=== PATIENT | female | born 1970 | race Hispanic/Latino ===

== ENCOUNTER 2016-08-15 22:36 | Observation (INO) | payer OTHER ==
[~2016-08-15] VITALS: Ht 160 cm; Wt 110.4 kg
[~2016-08-15 22:36] MED LIST: ACTOS30 MG PO; BIRTH CONTROL PILL; CIPRO XR500 MG OR; CIPRO500 MG OR; CIPROFLOXACN500 MG PO; CLIMARA TD; DIABETA5 MG PO; GLYB/METFO5 MG/500 M OR; HYDROCO/APAP1 T11 OR; LANTUS100 MG/ML SC; LEVOTHYROXIN50 MC1 PO; LIPITOR40 MG PO; LISINOPRIL2.5 MG PO; LORTAB 5 OR; LORTAB 5 PO; METFORMIN1000 MG PO; METFORMIN500 MG OR; METFORMIN500 MG PO; NOVOLIN 70/30 SC; NOVOLOG100 IU/1 M SC; ORTHO TRI-CY OR; PROMETHAZINE12.5 MG OR; SEPTRA DS1 TAB PO
--- NOTE | 2016-08-15 22:36 | NUR ---
PT. BROUGHT STRAIGHT BACK TO TREATMENT ROOM AT THIS TIME.
[2016-08-15 23:20] LABS: HEMATOCRIT 36.2 % (37.0-47.0); HEMOGLOBIN 11.4 g/dl (12.0-16.0); IMMATURE GRANULOCYTES 0.2 % (0.0-1.0); MEAN CELL VOLUME 81.2 fL CALC (80.0-100.0); MEAN CORPUSCULAR HGB 25.6 pG CALC (26.0-32.0); MEAN CORPUSCULAR HGB CONC 31.5 g/L CALC (32.0-36.0); NEUT# 6.33 thou/uL (2.00-7.15); RED BLOOD COUNT 4.46 mill/uL (4.20-5.60)
[2016-08-15 23:28] LABS: ALBUMIN 3.7 g/dL (3.2-5.0); ALKALINE PHOSPHATASE 151 u/l (38-126); ANION GAP 16 (6-22 (CALC)); BILIRUBIN, TOTAL 0.4 mg/dL (0.0-1.4); BUN 15 mg/dL (7-17); BUN/CREATININE RATIO 26 (12-20 (CALC)); CARBON DIOXIDE 25 mmol/l (22-30); CHLORIDE 100 mmol/l (95-108); CREATININE 0.6 mg/dL (0.5-1.0); GFR > 60 ML/MIN (>=60 (CALC)); GFR FOR AFR.AMER. > 60 ML/MIN (>=60 (CALC)); GLUCOSE 224 mg/dL (65-105); SGOT/AST 11 u/l (14-36); SGPT/ALT 24 u/l (9-52); SODIUM 138 mmol/l (137-146); TOTAL PROTEIN 7.7 g/dL (6.3-8.2)
[2016-08-15 23:40] LABS: MYOGLOBIN 18 ng/mL (0 - 62)
[2016-08-16 00:59] LABS: URINE BILIRUBIN - DIPSTICK NEGATIVE (NEGATIVE); URINE BLOOD DIPSTICK LARGE (NEGATIVE); URINE CLARITY SLIGHT CLOUDY; URINE COLOR YELLOW; URINE GLUCOSE - DIPSTICK >=1000 mg/dL (NEGATIVE); URINE KETONE NEGATIVE (NEGATIVE); URINE NITRITE - DIPSTICK NEGATIVE (Negative); URINE PROTEIN - DIPSTICK 30 mg/dL (NEG-TRACE); URINE UROBILINOGEN - DIPSTICK 0.2 E.U./dL (0.2)
[2016-08-16 01:03] LABS: BARBITURATES NEGATIVE (NEGATIVE); COCAINE NEGATIVE (NEGATIVE); METHADONE NEGATIVE (NEGATIVE); OXCYCODONE NEGATIVE (NEGATIVE); TETRAHYDROCANNABIONOL NEGATIVE (NEGATIVE); TRICYLIC ANTIDEPRESSANTS NEGATIVE (NEGATIVE)
[2016-08-16 01:05] LABS: URINE LEUK ESTERASE MODERATE (NEGATIVE)
[2016-08-16 01:24] LABS: URINE BACTERIA FEW hpf; URINE CALCIUM OXALATE CRYSTALS FEW lpf; URINE WBC TNTC WBC/hpf (0-5)
--- NOTE | 2016-08-16 01:30 | NUR ---
REPORT TO PORSHA, BUT WILL CALL BACK WHEN SHE IS ABLE TO TAKE PT SHE IS GETTING ANOTHER PT AT THE SAME TIME
--- NOTE | 2016-08-16 02:00 | NUR ---
to floor with nurse and daughter/pt on monitor
--- NOTE | 2016-08-16 02:10 | NUR ---
PT TRANSFERRED TO FLOOR VIA STRETCHER IN STABLE CONDITION ACCOMPANIED BY LUCHO CANCINO AND FAMILY;PT NOTED TO BE MOSTLY MARTINIQUAIS SPEAKING;PT AMBULATED TO STANDING SCALE AND BED WITH STEADY GAIT;VS OBTAINED;PT ORIENTED TO ROOM AND CALL LIGHT SYSTEM AND VERBALIZES UNDERSTANDING;ASSESSMENT COMPLETED;PT NOTED TO BE VERY DROWSY;TELE MONITOR IN PLACE;IV SITE TO RAC FLUSHED AND PATENT;PT REPORTS LAST BM TO BE ON 08/15;PT COMPLAINS OF "ALL OVER PAIN,LIKE MY HANDS AND FEET ARE BROKEN";FEET ELEVATED AND PRN PAIN MEDICATION TO BE ADMINISTERED;SKIN INTACT;PT DENIES ANY OTHER NEEDS AT THIS TIME;SAFETY PRECAUTIONS REINFORCED;BED IN LOWEST POSITION WITH CALL LIGHT IN REACH;WILL CONTINUE TO MONITOR
[2016-08-16 02:11] VITALS: BP 119/78
[2016-08-16 03:27] VITALS: BP 99/60
--- NOTE | 2016-08-16 05:30 | NUR ---
PT APPEARS TO BE SLEEPING IN SEMI FOWLERS POSITION WITH DAUGHTER AT BEDSIDE;WOKE PT TO ADMINISTER SCHEDULED MEDICATION;PT STATES THAT PIN IS "BETTER";PT DENIES ANY NEEDS AT THIS TIME;BED IN LOWEST POSITION;WILL CONTINUE TO MONITOR
[2016-08-16 06:51] LABS: ANION GAP 13 (6-22 (CALC)); BUN 13 mg/dL (7-17); BUN/CREATININE RATIO 24 (12-20 (CALC)); CALCIUM 8.5 mg/dL (8.4-10.2); CALCULATED LDLCHOLESTEROL 76 mg/dL (62-129 (CALC)); CARBON DIOXIDE 27 mmol/l (22-30); CHLORIDE 102 mmol/l (95-108); CREATININE 0.5 mg/dL (0.5-1.0); GFR > 60 ML/MIN (>=60 (CALC)); GFR FOR AFR.AMER. > 60 ML/MIN (>=60 (CALC)); GLUCOSE 272 mg/dL (65-105); HDL CHOLESTEROL 37 mg/dL (>=40); MAGNESIUM 1.7 mg/dL (1.6-2.3); POTASSIUM 4.1 mmol/l (3.5-5.1); SODIUM 137 mmol/l (137-146); TOTAL CHOLESTEROL 156 mg/dl (0-199); TRIGLYCERIDES REFLEX TO dLDL 214 mg/dl (30-149); VLDL CHOLESTROL 43 mg/dl (1-41 (CALC))
--- NOTE | 2016-08-16 07:10 | NUR ---
REPORT RECIEVED FROM JENNIE LONG; PT RESTING IN BED; NO S/S OF DISTRESS NOTED; PT C/O A LITTLE PAIN AT THIS TIME ALL OVER; CALL LIGHT WITHIN REACH; WILL CONTINUE TO MONITOR
[2016-08-16 08:12] VITALS: BP 100/60
[2016-08-16 13:05] VITALS: BP 103/68
[2016-08-16] MEDS ORDERED: GLIMEPIRIDE2 MG PO (14:29)
[2016-08-16] MEDS ORDERED: ASPIRIN CHEWABL81 MG PO (14:29)
[2016-08-16] MEDS ORDERED: KEFLEX500 M1 PO (14:29)
[2016-08-16] MEDS ORDERED: ATORVASTATIN CA10 MG PO (14:29)
--- NOTE | 2016-08-16 16:54 | NUR ---
Discharge instructions given. Patient verbalizes understanding of same. Discharged in stable condition via Ambulatory to Home with family. All belongings sent with pt.
== END 2016-08-16 16:55 | disposition home or self-care (01) | DRG 313 ==
LOC: ENPENDDIS → ED 22:36 → ED-I 08-16 00:18 → ED 08-16 00:30 → MS2 08-16 00:31
PROVIDERS: Emergency Medicine; ADMIT Internal Medicine; ATTEND Internal Medicine
DX: R07.89 Other chest pain (principal); E11.65 Type 2 diabetes mellitus with hyperglycemia; I10 Essential (primary) hypertension; N30.00 Acute cystitis without hematuria; E78.5 Hyperlipidemia, unspecified; E03.9 Hypothyroidism, unspecified; Z79.84 Long term (current) use of oral hypoglycemic drugs
CPT/HCPCS: G0378

== ENCOUNTER 2016-11-20 03:01 | Inpatient (IN) | payer OTHER ==
[~2016-11-20] VITALS: Ht 160 cm; Wt 115.7 kg
[2016-11-20] VITALS (22 sets, daily range): BP systolic 80–124; BP diastolic 44–73
[~2016-11-20 03:01] MED LIST changes: +ASPIRIN CHEWABL81 MG PO; +ATORVASTATIN CA10 MG PO; +GLIMEPIRIDE2 MG PO; +KEFLEX500 M1 PO
[2016-11-20 03:49] LABS: URINE BILIRUBIN - DIPSTICK NEGATIVE (NEGATIVE); URINE BLOOD DIPSTICK SMALL (NEGATIVE); URINE CLARITY TURBID; URINE COLOR YELLOW; URINE GLUCOSE - DIPSTICK >=1000 mg/dL (NEGATIVE); URINE KETONE NEGATIVE (NEGATIVE); URINE LEUK ESTERASE NEGATIVE (NEGATIVE); URINE NITRITE - DIPSTICK NEGATIVE (Negative); URINE PROTEIN - DIPSTICK 30 mg/dL (NEG-TRACE); URINE SPECIFIC GRAVITY 1.015; URINE UROBILINOGEN - DIPSTICK 0.2 E.U./dL (0.2)
[2016-11-20 03:51] LABS: HEMATOCRIT 39.4 % (37.0-47.0); HEMOGLOBIN 12.4 g/dl (12.0-16.0); IMMATURE GRANULOCYTES 0.3 % (0.0-1.0); MEAN CELL VOLUME 80.6 fL CALC (80.0-100.0); MEAN CORPUSCULAR HGB 25.4 pG CALC (26.0-32.0); MEAN CORPUSCULAR HGB CONC 31.5 g/L CALC (32.0-36.0); NEUT# 10.76 thou/uL (2.00-7.15); RED BLOOD COUNT 4.89 mill/uL (4.20-5.60)
[2016-11-20 03:55] LABS: URINE BACTERIA FEW hpf; URINE MUCUS FEW hpf (NONE-FEW); URINE RBC 0-2 RBC/hpf (0-5); URINE SQUAMOUS EPITHELIAL CELL FEW EPI/hpf (0-FEW)
[2016-11-20] MEDS ORDERED: NOVOLIN N100 UNIT/1 SC ×2 (03:56→03:57)
[2016-11-20 04:01] LABS: ALBUMIN 4.5 g/dL (3.2-5.0); ALKALINE PHOSPHATASE 143 u/l (38-126); ANION GAP 19 (6-22 (CALC)); BILIRUBIN, TOTAL 0.7 mg/dL (0.0-1.4); BUN 12 mg/dL (7-17); BUN/CREATININE RATIO 20 (12-20 (CALC)); CALCIUM 9.1 mg/dL (8.4-10.2); CARBON DIOXIDE 26 mmol/l (22-30); CHLORIDE 96 mmol/l (95-108); CREATININE 0.6 mg/dL (0.5-1.0); GFR > 60 ML/MIN (>=60 (CALC)); GFR FOR AFR.AMER. > 60 ML/MIN (>=60 (CALC)); GLUCOSE 327 mg/dL (65-105); POTASSIUM 4.2 mmol/l (3.5-5.1); SGOT/AST 13 u/l (14-36); SGPT/ALT 27 u/l (9-52); SODIUM 137 mmol/l (137-146); TOTAL PROTEIN 8.3 g/dL (6.3-8.2)
[2016-11-20 04:04] LABS: INFLUENZA A NONE DETECTED (NONE DETECT); INFLUENZA B NONE DETECTED (NONE DETECT)
[2016-11-20 04:07] LABS: INTERNATIONAL NORMALIZED RATIO 0.9 RATIO (0.7-1.3); PROTHROMBIN TIME 9.9 SECONDS (9.0-12.5)
[2016-11-20 08:53] LABS: URINE BILIRUBIN - DIPSTICK NEGATIVE (NEGATIVE); URINE BLOOD DIPSTICK LARGE (NEGATIVE); URINE COLOR YELLOW; URINE GLUCOSE - DIPSTICK NEGATIVE (NEGATIVE); URINE KETONE NEGATIVE (NEGATIVE); URINE NITRITE - DIPSTICK NEGATIVE (Negative); URINE PH 6.5 (4.5-8.0); URINE PROTEIN - DIPSTICK 100 mg/dL (NEG-TRACE); URINE SPECIFIC GRAVITY 1.025; URINE UROBILINOGEN - DIPSTICK 0.2 E.U./dL (0.2)
[2016-11-20 08:54] LABS: URINE CLARITY TURBID; URINE LEUK ESTERASE LARGE (NEGATIVE)
[2016-11-21] VITALS (23 sets, daily range): BP systolic 82–140; BP diastolic 41–82
[2016-11-21 04:38] LABS: HEMATOCRIT 31.7 % (37.0-47.0); IMMATURE GRANULOCYTES 0.3 % (0.0-1.0); MEAN CELL VOLUME 81.5 fL CALC (80.0-100.0); MEAN CORPUSCULAR HGB 25.7 pG CALC (26.0-32.0); MEAN CORPUSCULAR HGB CONC 31.5 g/L CALC (32.0-36.0); NEUT# 12.75 thou/uL (2.00-7.15); RED BLOOD COUNT 3.89 mill/uL (4.20-5.60); RED CELL DISTRI WIDTH 16.4 % (11.5-15.5)
[2016-11-21 04:57] LABS: ANION GAP 14 (6-22 (CALC)); BUN 10 mg/dL (7-17); BUN/CREATININE RATIO 18 (12-20 (CALC)); CALCIUM 7.4 mg/dL (8.4-10.2); CALCULATED LDLCHOLESTEROL 34 mg/dL (62-129 (CALC)); CARBON DIOXIDE 24 mmol/l (22-30); CHLORIDE 105 mmol/l (95-108); CHOLESTEROL HDL RATIO 2.6 (<4.4 (CALC)); CREATININE 0.6 mg/dL (0.5-1.0); GFR > 60 ML/MIN (>=60 (CALC)); GFR FOR AFR.AMER. > 60 ML/MIN (>=60 (CALC)); GLUCOSE 277 mg/dL (65-105); HDL CHOLESTEROL 35 mg/dL (>=40); POTASSIUM 3.4 mmol/l (3.5-5.1); SODIUM 140 mmol/l (137-146); TOTAL CHOLESTEROL 90 mg/dl (0-199); TOTAL TRIGLYCERIDES 108 mg/dl (30-149); VLDL CHOLESTROL 22 mg/dl (1-41 (CALC))
[2016-11-22] VITALS (9 sets, daily range): BP systolic 109–141; BP diastolic 69–88
[2016-11-22 04:57] LABS: ANION GAP 14 (6-22 (CALC)); BUN 11 mg/dL (7-17); BUN/CREATININE RATIO 18 (12-20 (CALC)); CALCIUM 7.7 mg/dL (8.4-10.2); CARBON DIOXIDE 26 mmol/l (22-30); CHLORIDE 106 mmol/l (95-108); CREATININE 0.6 mg/dL (0.5-1.0); GFR > 60 ML/MIN (>=60 (CALC)); GFR FOR AFR.AMER. > 60 ML/MIN (>=60 (CALC)); GLUCOSE 146 mg/dL (65-105); POTASSIUM 3.5 mmol/l (3.5-5.1); SODIUM 142 mmol/l (137-146)
[2016-11-22 06:01] LABS: HEMATOCRIT 29.6 % (37.0-47.0); HEMOGLOBIN 9.3 g/dl (12.0-16.0); IMMATURE GRANULOCYTES 0.4 % (0.0-1.0); MEAN CORPUSCULAR HGB 25.8 pG CALC (26.0-32.0); MEAN CORPUSCULAR HGB CONC 31.4 g/L CALC (32.0-36.0); NEUT# 10.01 thou/uL (2.00-7.15); RED BLOOD COUNT 3.61 mill/uL (4.20-5.60); RED CELL DISTRI WIDTH 16.5 % (11.5-15.5)
[2016-11-23 00:51] VITALS: BP 111/67
[2016-11-23 04:26] VITALS: BP 96/63
[2016-11-23 06:39] LABS: HEMATOCRIT 28.3 % (37.0-47.0); HEMOGLOBIN 8.8 g/dl (12.0-16.0); MEAN CELL VOLUME 81.3 fL CALC (80.0-100.0); MEAN CORPUSCULAR HGB 25.3 pG CALC (26.0-32.0); MEAN CORPUSCULAR HGB CONC 31.1 g/L CALC (32.0-36.0); RED BLOOD COUNT 3.48 mill/uL (4.20-5.60); RED CELL DISTRI WIDTH 16.4 % (11.5-15.5)
[2016-11-23 06:49] LABS: ANION GAP 13 (6-22 (CALC)); BUN 10 mg/dL (7-17); BUN/CREATININE RATIO 13 (12-20 (CALC)); CALCIUM 7.5 mg/dL (8.4-10.2); CARBON DIOXIDE 25 mmol/l (22-30); CHLORIDE 107 mmol/l (95-108); CREATININE 0.8 mg/dL (0.5-1.0); GFR > 60 ML/MIN (>=60 (CALC)); GFR FOR AFR.AMER. > 60 ML/MIN (>=60 (CALC)); GLUCOSE 93 mg/dL (65-105); SODIUM 142 mmol/l (137-146)
[2016-11-23 08:00] VITALS: BP 131/82
[2016-11-23 11:32] VITALS: BP 149/88
[2016-11-23] MEDS ORDERED: CIPROFLOXACN500 MG PO (13:18)
[2016-11-23] MEDS ORDERED: LORTAB 5-325 MG1 TAB PO (13:18)
[2016-11-23 15:48] VITALS: BP 118/71
== END 2016-11-23 16:08 | disposition home or self-care (01) | DRG 872 ==
LOC: ED 03:01 → ED-I 04:10 → ED 04:28 → ED-I 04:29 → MS2 04:29 → ICU 09:42 → MS2 11-22 13:34
PROVIDERS: Emergency Medicine; Internal Medicine; Nurse Practitioner Family; Urology; ADMIT Internal Medicine; ATTEND Internal Medicine
PROC: 0T778DZ Dilation of Left Ureter with Intraluminal Device, Via Natural or Artificial Opening Endoscopic (ICD-10-PCS; principal; 2016-11-20)
PROC: BT1F1ZZ Fluoroscopy of Left Kidney, Ureter and Bladder using Low Osmolar Contrast (ICD-10-PCS; 2016-11-20)
DX: A41.9 Sepsis, unspecified organism (principal); E11.65 Type 2 diabetes mellitus with hyperglycemia; E11.69 Type 2 diabetes mellitus with other specified complication; N13.6 Pyonephrosis; Z68.42 Body mass index [BMI] 45.0-49.9, adult; R65.20 Severe sepsis without septic shock; I10 Essential (primary) hypertension; E03.9 Hypothyroidism, unspecified; E66.01 Morbid (severe) obesity due to excess calories; E78.2 Mixed hyperlipidemia; Z79.4 Long term (current) use of insulin; Z79.84 Long term (current) use of oral hypoglycemic drugs; Z87.442 Personal history of urinary calculi
CPT/HCPCS: J3370; Q9967; S0164

== ENCOUNTER 2016-11-24 11:10 | Observation (INO) | payer OTHER ==
[~2016-11-24] VITALS: Ht 160 cm; Wt 117.8 kg
[~2016-11-24 11:10] MED LIST changes: +LORTAB 5-325 MG1 TAB PO; +NOVOLIN N100 UNIT/1 SC
[2016-11-24 12:26] LABS: HEMOGLOBIN 9.4 g/dl (12.0-16.0); IMMATURE GRANULOCYTES 0.3 % (0.0-1.0); MEAN CORPUSCULAR HGB 25.1 pG CALC (26.0-32.0); MEAN CORPUSCULAR HGB CONC 31.3 g/L CALC (32.0-36.0); NEUT# 6.58 thou/uL (2.00-7.15); RED BLOOD COUNT 3.75 mill/uL (4.20-5.60); RED CELL DISTRI WIDTH 16.5 % (11.5-15.5)
[2016-11-24 12:32] LABS: ALBUMIN 3.6 g/dL (3.2-5.0); ALKALINE PHOSPHATASE 302 u/l (38-126); ANION GAP 16 (6-22 (CALC)); BILIRUBIN, TOTAL 0.8 mg/dL (0.0-1.4); BUN 9 mg/dL (7-17); BUN/CREATININE RATIO 11 (12-20 (CALC)); CALCIUM 8.3 mg/dL (8.4-10.2); CARBON DIOXIDE 23 mmol/l (22-30); CHLORIDE 104 mmol/l (95-108); CREATININE 0.8 mg/dL (0.5-1.0); GFR > 60 ML/MIN (>=60 (CALC)); GFR FOR AFR.AMER. > 60 ML/MIN (>=60 (CALC)); GLUCOSE 145 mg/dL (65-105); POTASSIUM 3.8 mmol/l (3.5-5.1); SGOT/AST 14 u/l (14-36); SGPT/ALT 31 u/l (9-52); SODIUM 140 mmol/l (137-146); TOTAL PROTEIN 7.1 g/dL (6.3-8.2)
[2016-11-24 12:44] LABS: MYOGLOBIN 35 ng/mL (0 - 62)
[2016-11-24 12:47] LABS: URINE BILIRUBIN - DIPSTICK NEGATIVE (NEGATIVE); URINE BLOOD DIPSTICK MODERATE (NEGATIVE); URINE COLOR YELLOW; URINE GLUCOSE - DIPSTICK NEGATIVE (NEGATIVE); URINE KETONE NEGATIVE (NEGATIVE); URINE NITRITE - DIPSTICK NEGATIVE (Negative); URINE PH 5.5 (4.5-8.0); URINE PROTEIN - DIPSTICK NEGATIVE (NEG-TRACE); URINE UROBILINOGEN - DIPSTICK 0.2 E.U./dL (0.2)
[2016-11-24 12:49] LABS: URINE CLARITY CLOUDY; URINE LEUK ESTERASE LARGE (NEGATIVE)
[2016-11-24 12:54] LABS: URINE BACTERIA FEW hpf; URINE RBC 25-50 RBC/hpf (0-5); URINE SQUAMOUS EPITHELIAL CELL FEW EPI/hpf (0-FEW); URINE WBC TNTC WBC/hpf (0-5)
[2016-11-24 16:01] VITALS: BP 142/86
[2016-11-24 19:43] VITALS: BP 113/71
[2016-11-25 04:19] VITALS: BP 101/66
[2016-11-25 05:56] LABS: HEMATOCRIT 27.2 % (37.0-47.0); HEMOGLOBIN 8.7 g/dl (12.0-16.0); IMMATURE GRANULOCYTES 0.4 % (0.0-1.0); MEAN CELL VOLUME 80.5 fL CALC (80.0-100.0); MEAN CORPUSCULAR HGB 25.7 pG CALC (26.0-32.0); NEUT# 5.85 thou/uL (2.00-7.15); RED BLOOD COUNT 3.38 mill/uL (4.20-5.60); RED CELL DISTRI WIDTH 16.4 % (11.5-15.5)
[2016-11-25 06:13] LABS: ALKALINE PHOSPHATASE 238 u/l (38-126); ANION GAP 14 (6-22 (CALC)); BILIRUBIN, TOTAL 0.6 mg/dL (0.0-1.4); BUN 10 mg/dL (7-17); BUN/CREATININE RATIO 12 (12-20 (CALC)); CALCIUM 8.2 mg/dL (8.4-10.2); CARBON DIOXIDE 25 mmol/l (22-30); CHLORIDE 107 mmol/l (95-108); CREATININE 0.8 mg/dL (0.5-1.0); GFR > 60 ML/MIN (>=60 (CALC)); GFR FOR AFR.AMER. > 60 ML/MIN (>=60 (CALC)); GLUCOSE 65 mg/dL (65-105); POTASSIUM 3.3 mmol/l (3.5-5.1); SGOT/AST 12 u/l (14-36); SGPT/ALT 26 u/l (9-52); SODIUM 142 mmol/l (137-146); TOTAL PROTEIN 6.2 g/dL (6.3-8.2)
[2016-11-25 08:13] VITALS: BP 113/68
[2016-11-25 16:30] VITALS: BP 117/71
[2016-11-25] MEDS ORDERED: LIPITOR20 MG PO (17:17)
== END 2016-11-25 18:40 | disposition home or self-care (01) | DRG 872 ==
LOC: ED 11:10 → ED-I 14:19 → ED 14:45 → MS2 14:46
PROVIDERS: Emergency Medicine; ADMIT Internal Medicine; ATTEND Internal Medicine
DX: R78.81 Bacteremia (principal); E11.65 Type 2 diabetes mellitus with hyperglycemia; E11.69 Type 2 diabetes mellitus with other specified complication; K76.0 Fatty (change of) liver, not elsewhere classified; N13.2 Hydronephrosis with renal and ureteral calculous obstruction; I10 Essential (primary) hypertension; E03.9 Hypothyroidism, unspecified; R74.8 Abnormal levels of other serum enzymes; E78.2 Mixed hyperlipidemia; D64.9 Anemia, unspecified; Z79.4 Long term (current) use of insulin
CPT/HCPCS: G0378; J0692

== ENCOUNTER 2017-02-18 23:23 | Emergency (ER) | payer SELFPAY ==
[~2017-02-18] VITALS: Ht 160 cm; Wt 108.2 kg
[~2017-02-18 23:23] MED LIST changes: +LIPITOR20 MG PO
[2017-02-19 00:09] LABS: HEMATOCRIT 35.3 % (37.0-47.0); HEMOGLOBIN 11.2 g/dl (12.0-16.0); IMMATURE GRANULOCYTES 0.4 % (0.0-1.0); MEAN CELL VOLUME 79.5 fL CALC (80.0-100.0); MEAN CORPUSCULAR HGB 25.2 pG CALC (26.0-32.0); MEAN CORPUSCULAR HGB CONC 31.7 g/L CALC (32.0-36.0); NEUT# 12.05 thou/uL (2.00-7.15); RED BLOOD COUNT 4.44 mill/uL (4.20-5.60); RED CELL DISTRI WIDTH 16.8 % (11.5-15.5); URINE BILIRUBIN - DIPSTICK NEGATIVE (NEGATIVE); URINE BLOOD DIPSTICK LARGE (NEGATIVE); URINE CLARITY TURBID; URINE COLOR YELLOW; URINE GLUCOSE - DIPSTICK >=1000 mg/dL (NEGATIVE); URINE KETONE 15 mg/dL (NEGATIVE); URINE LEUK ESTERASE SMALL (NEGATIVE); URINE NITRITE - DIPSTICK POSITIVE (Negative); URINE PROTEIN - DIPSTICK TRACE mg/dL (NEG-TRACE); URINE SPECIFIC GRAVITY <=1.005; URINE UROBILINOGEN - DIPSTICK 0.2 E.U./dL (0.2)
[2017-02-19 00:14] LABS: URINE BACTERIA MODERATE hpf; URINE SQUAMOUS EPITHELIAL CELL FEW EPI/hpf (0-FEW); URINE WBC 50-100 WBC/hpf (0-5)
[2017-02-19 00:27] LABS: ALBUMIN 3.8 g/dL (3.2-5.0); ALKALINE PHOSPHATASE 138 u/l (38-126); AMYLASE 34 u/l (30-110); ANION GAP 16 (6-22 (CALC)); BILIRUBIN, TOTAL 0.7 mg/dL (0.0-1.4); BUN 15 mg/dL (7-17); BUN/CREATININE RATIO 23 (12-20 (CALC)); CALCIUM 8.9 mg/dL (8.4-10.2); CARBON DIOXIDE 24 mmol/l (22-30); CHLORIDE 99 mmol/l (95-108); CREATININE 0.7 mg/dL (0.5-1.0); GFR > 60 ML/MIN (>=60 (CALC)); GFR FOR AFR.AMER. > 60 ML/MIN (>=60 (CALC)); GLUCOSE 381 mg/dL (65-105); LIPASE 130 u/l (23-300); POTASSIUM 3.9 mmol/l (3.5-5.1); SGOT/AST 9 u/l (14-36); SGPT/ALT 25 u/l (9-52); SODIUM 135 mmol/l (137-146); TOTAL PROTEIN 7.2 g/dL (6.3-8.2)
[2017-02-19 03:23] VITALS: BP 139/74
== END 2017-02-19 03:12 | disposition short-term general hospital (02) | DRG 694 ==
LOC: ED 23:23
PROVIDERS: Emergency Medicine
DX: N20.0 Calculus of kidney (principal); E11.65 Type 2 diabetes mellitus with hyperglycemia; I10 Essential (primary) hypertension; Z87.442 Personal history of urinary calculi
CPT/HCPCS: J1956

== ENCOUNTER 2017-03-02 10:30 | Inpatient (IN) | payer OTHER ==
[~2017-03-02] VITALS: Ht 160 cm; Wt 107.0 kg
[2017-03-02] MEDS ORDERED: OXYCODONE HCL5 MG PO (10:47)
--- NOTE | 2017-03-02 10:47 | NUR ---
PT AMBLATORY TO ROOM
[2017-03-02 11:24] LABS: HEMATOCRIT 35.3 % (37.0-47.0); HEMOGLOBIN 11.3 g/dl (12.0-16.0); IMMATURE GRANULOCYTES 0.4 % (0.0-1.0); MEAN CORPUSCULAR HGB 25.3 pG CALC (26.0-32.0); NEUT# 15.14 thou/uL (2.00-7.15); RED BLOOD COUNT 4.47 mill/uL (4.20-5.60); RED CELL DISTRI WIDTH 16.3 % (11.5-15.5)
--- NOTE | 2017-03-02 11:29 | NUR ---
PATIENT MEDICATED PER MD ORDER. [facility] AT BEDSIDE TO TRANSPORT TO [facility] FOR CT SCAN. REPORT GIVEN. PATIENT DEPARTS IN STABLE CONDITION.
[2017-03-02 11:39] LABS: ALBUMIN 3.9 g/dL (3.2-5.0); ALKALINE PHOSPHATASE 133 u/l (38-126); AMYLASE 33 u/l (30-110); ANION GAP 17 (6-22 (CALC)); BILIRUBIN, TOTAL 0.6 mg/dL (0.0-1.4); BUN 15 mg/dL (7-17); BUN/CREATININE RATIO 20 (12-20 (CALC)); CALCIUM 8.7 mg/dL (8.4-10.2); CARBON DIOXIDE 22 mmol/l (22-30); CHLORIDE 99 mmol/l (95-108); CREATININE 0.8 mg/dL (0.5-1.0); GFR > 60 ML/MIN (>=60 (CALC)); GFR FOR AFR.AMER. > 60 ML/MIN (>=60 (CALC)); GLUCOSE 403 mg/dL (65-105); LIPASE 88 u/l (23-300); POTASSIUM 4.2 mmol/l (3.5-5.1); SGOT/AST 9 u/l (14-36); SGPT/ALT 26 u/l (9-52); SODIUM 134 mmol/l (137-146); TOTAL PROTEIN 7.5 g/dL (6.3-8.2)
--- NOTE | 2017-03-02 13:11 | NUR ---
PATIENT CONTINUE OUT OF DEPARTMENT.
--- NOTE | 2017-03-02 14:30 | NUR ---
PATIENT RETURNS TO DEPARTMENT IN STABLE CONDITION, PATIENT AMBULATES WITH STEADY GAIT TO BATHROOM, URINE SAMPLE OBTAINED. REPORTS PAIN LEVEL 9/10 AND NAUSEA. MD INFORMED. AWAITING NEW ORDERS.
[2017-03-02 14:56] LABS: URINE BILIRUBIN - DIPSTICK NEGATIVE (NEGATIVE); URINE BLOOD DIPSTICK LARGE (NEGATIVE); URINE COLOR YELLOW; URINE GLUCOSE - DIPSTICK >=1000 mg/dL (NEGATIVE); URINE KETONE 15 mg/dL (NEGATIVE); URINE LEUK ESTERASE TRACE (NEGATIVE); URINE NITRITE - DIPSTICK NEGATIVE (Negative); URINE PROTEIN - DIPSTICK TRACE mg/dL (NEG-TRACE); URINE SPECIFIC GRAVITY 1.015; URINE UROBILINOGEN - DIPSTICK 0.2 E.U./dL (0.2)
[2017-03-02 14:57] LABS: URINE CLARITY SL CLOUDY
[2017-03-02 15:03] LABS: URINE RBC 25-50 RBC/hpf (0-5); URINE SQUAMOUS EPITHELIAL CELL MANY EPI/hpf (0-FEW); URINE WBC 20-50 WBC/hpf (0-5)
--- NOTE | 2017-03-02 15:25 | NUR ---
INFORMED OF BP. AWAITING NEW ORDERS.
--- NOTE | 2017-03-02 16:01 | NUR ---
PATIENT REPORTS PAIN LEVEL 6/10 A THIS TIME.
--- NOTE | 2017-03-02 16:08 | NUR ---
REPORT GIVEN TO LCUHO DONOVAN.
--- NOTE | 2017-03-02 16:20 | NUR ---
PATIENT TRANSPORTED TO [facility] WITH TELE VIA STRETCHER. BEDSIDE REPORT GIVEN TO LUCHO DONOVAN. CARE RELINQUISHED AT THIS TIME.
--- NOTE | 2017-03-02 16:53 | NUR ---
REPORT RECEIVED FROM JURGEN IN ED, PT ARRIVED ON UNIT VIA STRETCHER AND AMBULATED TO BED, ALERT AND ORIENTED X 3, C/O ABD/LEFT FLANK PAIN, SHIVERING AT THIS TIME AND C/O BEING COLD, SETTLED IN BED, VITAL SIGNS MEASURED AND RECORDED. BOLUS FLUIDS AND VANCONYCIN INFUSING TO 2 SITES IN EITHER ARMS. TELE MONITOR IN PLACE. ORIENTED TO ROOM AND CALL TAN, WILL CONTINUE TO ASSESS AND MONITOR.
[2017-03-02 16:59] VITALS: BP 129/54
--- NOTE | 2017-03-02 19:30 | NUR ---
SITTING ON SIDE OF BED AFTER USING BSC, VOIDING 800ML CLOUDY YELLOW URINE. A/O X3, RESPIRATIONS EVEN AND UNLABORED. C/O LEFT FLANK PAIN 09/08 WAS MEDICATED WITH MORPHINE 2MG IV AT 1723 AND ADMITS TO SOME RELIEF, DISCUSSED WITH PT THAT MORHPHINE IS ORDERED Q6HR PRN PAIN AND SHE VOICES UNDERSTANDING. IV FLUIDS NS BOLUS INFUSING AT THIS TIME TO LAC. ENCOURAGED TO USE CALL LIGHT FOR ASSISTANCE, WILL CONTINUE TO MOMITOR.
[2017-03-02 20:11] VITALS: BP 98/60
--- NOTE | 2017-03-02 21:52 | NUR ---
C/O NAUSEA AND LEFT FLANK PAIN 10/10, MEDICATED WITH ZOFRAN 4MG IV AND MORPHINE 2MG IV AT THIS TIME. TEMP IS 101.1, ICE PACKS APPLIED. WILL CONTINUE TO MONITOR.
--- NOTE | 2017-03-02 23:20 | NUR ---
PT DENIES RELIEF OF PAIN TO LEFT FLANK AND LEFT ABDOMEN, DR. DUARTE NOTIFIED AND NEW ORDERS RECEIVED TO GIVE EXTRA DOSE OF MORPHINE 2MG NOW AND CHANGE MORPHINE TO 2MG Q4H PRN PAIN. MORPHINE 2MG GIVEN AT 2320. IV FLUIDS NS INFUSING TO LAC AT 100CC/HR. WILL CONTINUE TO MONITOR.
[2017-03-02 23:26] VITALS: BP 99/60
[2017-03-03 04:36] VITALS: BP 110/62
[2017-03-03 05:23] LABS: ANION GAP 11 (6-22 (CALC)); BUN 12 mg/dL (7-17); BUN/CREATININE RATIO 15 (12-20 (CALC)); CALCIUM 7.4 mg/dL (8.4-10.2); CARBON DIOXIDE 21 mmol/l (22-30); CHLORIDE 107 mmol/l (95-108); CREATININE 0.8 mg/dL (0.5-1.0); GFR > 60 ML/MIN (>=60 (CALC)); GFR FOR AFR.AMER. > 60 ML/MIN (>=60 (CALC)); GLUCOSE 236 mg/dL (65-105); POTASSIUM 3.8 mmol/l (3.5-5.1); SODIUM 136 mmol/l (137-146)
[2017-03-03 05:40] LABS: HEMATOCRIT 32.3 % (37.0-47.0); HEMOGLOBIN 10.2 g/dl (12.0-16.0); IMMATURE GRANULOCYTES 0.6 % (0.0-1.0); MEAN CORPUSCULAR HGB 25.2 pG CALC (26.0-32.0); MEAN CORPUSCULAR HGB CONC 31.6 g/L CALC (32.0-36.0); NEUT# 15.31 thou/uL (2.00-7.15); RED BLOOD COUNT 4.04 mill/uL (4.20-5.60); RED CELL DISTRI WIDTH 16.3 % (11.5-15.5)
--- NOTE | 2017-03-03 06:45 | NUR ---
REPORT RECEIVED FROM JENNIE ARANGO. PT RESTING SUPINE, PT DENIES THE ABILITY TO SPEAK OMANI, PT RE-ASSURED THERE WOULD BE TRAFFIC INVESTIGATOR AVAILABLE. DENIES NEEDS OR CONCERNS, HAS NO QUESTIONS AT THIS TIME. CALL LIGHT WITHIN REACH. SAFETY REVIEWED. INSTRUCTED PT IN O[place] TO CALL FOR ASSISTANCE, PT STATES "OK" PT ADMITS TO UNDERSTANDING OMAN[place], BUT LIMITED TO SPEAKING OMANI.
[2017-03-03 08:00] VITALS: BP 112/60
--- NOTE | 2017-03-03 08:25 | NUR ---
CONSULT CALLED TO UROLOGY RENTAL MANAGER, SPOKE DIRECTLY WITH DR. VALLE. STATES HE WILL BE IN TO SEE HER.
--- NOTE | 2017-03-03 12:38 | NUR ---
DR. VALLE ON FLOOR AT THIS TIME TO SEE PT. FAMILY AT BS. PLAN OF CARE DISCUSSED IN GREAT LENGTH. PT INFORMED OF UROLOGY PLAN TO REMOVE LEFT KIDNEY AFTER SERIES OF OUTPT TESTS PERFORMED IN ORDER TO TEST KIDNEY FUNCTION. EXPLANATION OF NO AGGRESSIVE TREATMENT GIVEN, IN REGARDS TO PT INFECTION WORSENING WITH ANY TYPE OF SURGICAL INTERVENTION AT THIS TIME. OFFICE LOCATOIN OF DR. OLVERA IDENTIFIED, PT AND FAMILY STATE UNDERSTANDING. PT STATES UNDERSTANDING OF DIFFICULTY WITH HAVING DIABETES AND THE POSSIBILITY OF ONE KIDNEY LEFT TO FUNCTION. PRIMARY MD NOTIFIED OF PLAN, ABX THERAPY REVIEWED, AND CHANGED TO CEFEPIME AT THIS TIME.
[2017-03-03 15:36] VITALS: BP 131/72
--- NOTE | 2017-03-03 16:02 | NUR ---
PT GIVEN TYLENOL AND MORPHINE AT THIS TIME FOR A FEVER OF 100.2 AND PAIN 10/10 IN THE LEFT FLANK. PT SHIVERING, GIVEN SHEET PER REQUEST. HAT EMPTIED IN BR. 750CC OF SUSANNAH URINE. CALL LIGHT WITHIN REACH. INSTRUCTED PT TO CALL FOR ASSISTANCE. PT STATES UNDERSTANDING. INSTRUCTED PT THAT IF TEMP IS STILL ELEVATED, ICE WILL BE PLACED UNDER ARMS, OR POSSIBLE SHOWER. PT STATES UNDERSTANDING.
--- NOTE | 2017-03-03 17:08 | NUR ---
MD NOTIFIED OF ELEVATED BLOOD SUGARS THAT HAVE BEEN PRESISTENTLY ELEVATED THROUGHOUT THE SHIFT. ADDITIONAL COVERAGE OF LANTUS 5 UNITS SUBQ OREDERED QHS. PT PLAN OF CARE DISCUSSED, STATES UNDERSTANDING.
[2017-03-03 19:38] VITALS: BP 108/70
--- NOTE | 2017-03-03 19:54 | NUR ---
PT IN BED A/O X3, RESPIRATIONS EVEN AND UNLABORED. C/O LEFT FLANK AND LEFT ABDOMINAL PAIN 10/10, MEDICATED WITH MORHPHINE 2MG IV. TEMP 99.0 HAS ICE PACKS TO CHEST AND RIGHT UNDER ARM. NS INFUSING TO LAC AT 100CC/HR. OFFERED TO ASSISTANC TO SHOWER AND REFUSES AT THIS TIME. PO FLUIDS IN REACH, ENCOURAGED TO USE CALL LIGHT FOR ASSISTANCE, WILL CONTINUE TO MONITOR.
--- NOTE | 2017-03-03 21:00 | NUR ---
PT'S DAUGHTER CALLED THIS WRITTER INTO ROOM AND STATES PT HAS NUASEA AND PAIN 01/08. TALKED TO PT AND FAMILY AND THEY ARE AWARE THAT PT WAS MEDICATED WITH MORPHINE 2MG IV AT 1947 AND SHE CAN HAVE IT Q2H PRN, TODARADOL 15MG ALSO SCHEDULED Q12HRS GIVEN AN HOUR AND A HALF EARLY DUE TO THIS C/O PAIN 01/08, ALSO MEDICATED WITH ZOFRAN 4MG IV FOR NAUSEA, PT SITTING ON SIDE OF BED MOANING IN PAIN WITH DAUGHTER AND SON AT HER SIDE. ACCUCHECK 249, INSULINS ADMINISTERED PER MAR TOLERATED WELL. WILL CONTINUE TO MONITOR.
--- NOTE | 2017-03-03 21:31 | NUR ---
PT ADMITS TO SOME RELIEF OF PAIN DOWN TO 12/09 AFTER TORADOL, TEMP 99.9 AT THIS TIME.
--- NOTE | 2017-03-03 23:03 | NUR ---
STATES PAIN 6/10 AT THIS TIME, IV FLUIDS INFUSING TO LAC WITH NO COMPLICATIONS. CALL LIGHT IN REACH.
[2017-03-04 00:39] VITALS: BP 104/70
--- NOTE | 2017-03-04 02:55 | NUR ---
MEDICATED WITH MORPHINE 2MG IV FOR C/O LEFT FLANK PAIN 01/08, TYLENOL ALSO PROVIDED FOR C/O HEADACHE 01/08. IV FLUIDS INFUSING TO LAC WITH NO COMPLICATIONS. CALL LIGHT IN REACH, PO FLUIDS AT BED SIDE.
[2017-03-04 04:55] VITALS: BP 97/63
--- NOTE | 2017-03-04 05:00 | NUR ---
OOB TO BSC VOIDING CLOUDY YELLOW URINE, THEN AMBULATING TO RECLINER WITH STEADY GAIT, REFUSES TO GET WASHED UP OR SHOWER AT THIS TIME. IV FLUIDS INFUSING TO LAC WITH NO COMPLICATION, CALL LIGHT IN REACH.
[2017-03-04 07:30] VITALS: BP 87/50
--- NOTE | 2017-03-04 08:50 | NUR ---
ASSESSMENT IS COMPLETED: IV SITE IS FREE FROM REDNESS OR EDEMA. TELE MONITOR IN PLACE. C/O BEING COLD NO FEVER NOTED. CONTINUE TO OSBERVE AND MONITOR.
[2017-03-04] MEDS ORDERED: FISH OIL1000 M2 PO (11:09)
--- NOTE | 2017-03-04 11:12 | NUR ---
MED REC REQUEST. CONTACTED [facility] AND OBTAINED MED LIST BY FAX. VERIFIED THAT MEDICATIONS IN MED LIST ARE CORRECT. NO CHANGES MADE.
--- NOTE | 2017-03-04 12:30 | NUR ---
PT IS RELAXING IN BED C/O GAS FEELING IN ABD. IV SITE IS FREE FROM REDNESS OR EDEMA. CONTINUE TO OBSERVE AND MONITOR.
[2017-03-04 13:37] VITALS: BP 111/67
[2017-03-04 17:30] VITALS: BP 141/71
--- NOTE | 2017-03-04 17:30 | NUR ---
PT IS RESTING IN BED FAMILY IN WITH HER MEDICATIONS. LEFT INSULIN AT HOME IN THE REFRIGERATOR. IV SITE IS FREE FROM REDNESS OR EDEMA. TELE MONITOR IN PLACE. PT HAS A FEVER AND GIVEN MEDICATION. CONTINUE TO OSBERVE AND MONITOR.
--- NOTE | 2017-03-04 19:32 | NUR ---
BEDSIDE REPORT RECEIVED FROM JENNIE NORTH. PT RESTING IN BED WATCHING TV. C/O MILD PAIN TO LEFT FLANK AREA RADIATING TO LOWER ABDOMEN. ICE APPLIED. RESPIRATIONS EVEN AND UNLABORED. ASSESSMENT COMPLETED AT THIS TIME. VOIDING CLOUDY, BLOOD TINGED URINE. PLAN OF CARE DISCUSSED. PT ENCOURAGED TO VERBALIZE CONCERNS. STATES UNDERSTANDING. SAFETY MEASURES IN PLACE. CALL LIGHT SYSTEM REVIEWED AND IN REACH.
[2017-03-04 19:34] VITALS: BP 117/69
[2017-03-05] VITALS (7 sets, daily range): BP systolic 113–154; BP diastolic 68–87
--- NOTE | 2017-03-05 00:09 | NUR ---
PT HAS RECEIVED MORPHINE AND ZOFRAN WITH GOOD EFFECT. CURRENTLY RESTING COMFORTABLY. STATES THAT PAIN IS MILD AND NAUSEA MANAGED. UP TO BATHROOM AD ALEXANDRA. PT POSSIBLY STARTED MENSTRAL CYCLE; MODERATE AMOUNT OF BLOOD IN URINE AND CLOTHING FROM VAGINAL AREA. GIVEN SANITARY PADS. WILL CONTINUE TO MONITOR. VS STABLE. SAFETY MEASURES IN PLACE. CALL LIGHT WITHIN REACH.
--- NOTE | 2017-03-05 04:00 | NUR ---
PT UP TO BATHROOM AT THIS TIME. C/O SEVERE PAIN TO LEFT FLANK/LLQ. RESPIRATIONS EVEN AND UNLABORED. CONTINUE TO STRAIN URINE; NO STONES; VOIDING IN LARGE AMOUNTS. SAFETY MEASURES IN PLACE. CALL LIGHT WITHIN REACH.
[2017-03-05 04:50] LABS: HEMATOCRIT 28.6 % (37.0-47.0); HEMOGLOBIN 9.1 g/dl (12.0-16.0); IMMATURE GRANULOCYTES 0.4 % (0.0-1.0); MEAN CELL VOLUME 79.4 fL CALC (80.0-100.0); MEAN CORPUSCULAR HGB 25.3 pG CALC (26.0-32.0); MEAN CORPUSCULAR HGB CONC 31.8 g/L CALC (32.0-36.0); NEUT# 9.59 thou/uL (2.00-7.15); RED BLOOD COUNT 3.6 mill/uL (4.20-5.60); RED CELL DISTRI WIDTH 16.2 % (11.5-15.5)
[2017-03-05 05:09] LABS: ANION GAP 12 (6-22 (CALC)); BUN 8 mg/dL (7-17); BUN/CREATININE RATIO 11 (12-20 (CALC)); CALCIUM 7.4 mg/dL (8.4-10.2); CARBON DIOXIDE 21 mmol/l (22-30); CHLORIDE 110 mmol/l (95-108); CREATININE 0.8 mg/dL (0.5-1.0); GFR > 60 ML/MIN (>=60 (CALC)); GFR FOR AFR.AMER. > 60 ML/MIN (>=60 (CALC)); GLUCOSE 143 mg/dL (65-105); MAGNESIUM 1.8 mg/dL (1.6-2.3); POTASSIUM 3.3 mmol/l (3.5-5.1); SODIUM 140 mmol/l (137-146)
--- NOTE | 2017-03-05 08:25 | NUR ---
PT.MEDICATED ORDERS PROVIDE, PT.ASSESSED AND V/S ASSESSED. PT.REPORT ABD TENDERNESS IN UPPER R.AND UPPER/LOWER L.QUADRANTS, PT.IS NAUSIOUS, WILL MEDICATE FOR SUCH WHEN MEDICATIONS ARE AVAILABLE PER SCHEDULE. NOVOLIN-N HELD DUE TO BLOOD SUGAR OF 127 AND REPORTS OF PT.BEING UNABLE TO EAT DUE TO NAUSEA. WILL REACCESS PAIN AND TREAT FOR NAUSEA WHEN ABLE. DENIES ANY OTHER NEEDS AT THIS TIME. CALL LIGHT W/IN REACH
--- NOTE | 2017-03-05 10:13 | NUR ---
PT.SITTING ON SIDE OF BED ATTEMPTING TO EAT SOME OF HER BREAKFAST AND TALKING ON CELLPHONE. PT.MEDICATED W/TORODOL SCHEDULED/PAIN REPORTED 01/08 AND ZOFRAN FOR NAUSEA. IV FLUIDS RUNNING AT 100. DENIES ANY FURTHER NEEDS AT THIS TIME. CALL LIGHT AT BEDSIDE
--- NOTE | 2017-03-05 11:35 | NUR ---
PT.UPRIGHT IN RECLINER, MORNING LEVEMIR 50UN ADMINISTERED AT THIS TIME, PT.BLOOD SUGAR IS 245. DENIES ANY OTHER NEEDS AT THIS TIME, CALL LIGHT W/IN REACH
--- NOTE | 2017-03-05 13:21 | NUR ---
PT.SITTING UP IN BED W/DAUGHTER ON END OF BED TALKING. PT.REPORTS PAIN 07/09, TEMP HAS BEEN RECHECKED AT 98.9 TYM., PT.IS REQUESTING TO GET IN THE SHOWER W/DAUGHTERS ASSISTANCE, THEY HAVE DECIDED TO WAIT UNTIL 30MIN.IV ANTIBIOTIC THERAPY IS ADMINISTERED AND THEN SHE WILL GET IN THE SHOWER. DENIES ANY OTHER NEEDS AT THIS TIME, CALL LIGHT W/IN REACH AND PT AND FAMILY HAS BEEN INSTRUCTED TO CALL IS ANY OTHER NEEDS ARISE.
--- NOTE | 2017-03-05 19:00 | NUR ---
TEMP 103.3 AT THIS TIME, ICE PACKS APPLIED TO UNDERARMS AND CHEST, WAS MEDICATED WITH TYLENOL 650MG PO AT 1848. SITTING ON SIDE OF BED SIPPING ON WATER. IV FLUIDS INFUSING TO LAC AT 100CC/HR, A/O X3, RESPIRATIONS EVEN AND UNLABORED. CALL LIGHT IN REACH.
--- NOTE | 2017-03-05 21:03 | NUR ---
HELD IBUPROFEN DUE TO TEMP 99.8, C/O NAUSEA AND LEFT FLANK AND LEFT ABDOMINAL PAIN 10/, MEDICATED WITH MORHPINE AND PHENERGAN PER MAR AT THIS TIME. WILL CONTINUE TO MONITOR.
--- NOTE | 2017-03-06 00:53 | NUR ---
PT RESTING WITH EYES CLOSED, RESPONDS EASILY TO VERBAL COMMAND, ADMITS TO PAIN 6/10, DENIES NEED FOR PAIN MED AT THIS TIME, CEFEPIME SPIKED AND INFUSING WITH NO COMPLICATIONS. CALL LIGHT IN REACH.
--- NOTE | 2017-03-06 02:58 | NUR ---
PT C/O NAUSEA, HEADACHE 10/10, LEFT FLANK AND LEFT ABDOMINAL PAIN 10/10, PT IS SHIVERING, TEMP 99.7, HR 103, B/P 145/86, O2 SAT 99%. MEDICATED WITH TYLENOL, MORPHINE IV AND PHENERGAN IV. ICE PACK APPLIED FOR FOREHEAD. WILL CONTINUE TO MONITOR.
--- NOTE | 2017-03-06 03:15 | NUR ---
PT ADMITS TO FEELING BETTER, LEFT FLANK PAIN AND HEADACHE DOWN TO 6/10, DENIES NAUSEA.
[2017-03-06 05:52] VITALS: BP 119/68
--- NOTE | 2017-03-06 06:00 | NUR ---
ICE PACKS APPLIED FOR TEMP 100.5.
[2017-03-06 06:06] LABS: HEMATOCRIT 25.1 % (37.0-47.0); HEMOGLOBIN 8.1 g/dl (12.0-16.0); IMMATURE GRANULOCYTES 0.4 % (0.0-1.0); MEAN CELL VOLUME 78.9 fL CALC (80.0-100.0); MEAN CORPUSCULAR HGB 25.5 pG CALC (26.0-32.0); MEAN CORPUSCULAR HGB CONC 32.3 g/L CALC (32.0-36.0); NEUT# 10.8 thou/uL (2.00-7.15); RED BLOOD COUNT 3.18 mill/uL (4.20-5.60); RED CELL DISTRI WIDTH 16.3 % (11.5-15.5)
[2017-03-06 06:14] LABS: ANION GAP 15 (6-22 (CALC)); BUN 7 mg/dL (7-17); BUN/CREATININE RATIO 9 (12-20 (CALC)); CALCIUM 7.4 mg/dL (8.4-10.2); CARBON DIOXIDE 20 mmol/l (22-30); CHLORIDE 111 mmol/l (95-108); CREATININE 0.8 mg/dL (0.5-1.0); GFR > 60 ML/MIN (>=60 (CALC)); GFR FOR AFR.AMER. > 60 ML/MIN (>=60 (CALC)); GLUCOSE 105 mg/dL (65-105); MAGNESIUM 1.7 mg/dL (1.6-2.3); POTASSIUM 3.5 mmol/l (3.5-5.1); SODIUM 143 mmol/l (137-146)
[2017-03-06 07:08] VITALS: BP 131/70
--- NOTE | 2017-03-06 11:03 | NUR ---
Drug Selected: Vancomycin Age: 46 years Weight: 107 kg Height: 63 in Gender: Female SCR: 0.8 mg/dl Give Vancomycin 1000 mg q8 hrs NEXT TROUGH WILL BE 10 AM 03/07/2017 SCOURCE OF INFECTION UNKNOWN, PT CURRENTLY ON MERREM,VANCO AND CEFEPIME
[2017-03-06 11:15] VITALS: BP 133/77
--- NOTE | 2017-03-06 11:50 | NUR ---
PT MEDICATED FOR C/O ABD PAIN 11/08; CALL TAN WITHIN REACH; WILL CONTINUE TO MONITOR.
[2017-03-06 15:47] VITALS: BP 124/75
--- NOTE | 2017-03-06 15:54 | NUR ---
PT MEDICATED FOR C/O ABD PAIN 12/09; IVF INFUSING WELL; CALL TAN WITHIN REACH; WILL CONTINUE TO MONITOR.
--- NOTE | 2017-03-06 17:00 | NUR ---
PT MEDICATED FOR C/O REAGAN 11/08; IVF INFUSING WITHOUT DIFFICULTY; CALL TAN WITHIN REACH; WILL CONTINUE TO MONITOR.
--- NOTE | 2017-03-06 17:20 | NUR ---
16 FR CASTRO INSERTED USING STERILE TECHNIQUE BY Julius STOUT LPN; IMMEDIATE RETURN OF 400 ML OF CLOUDY URINE; CALL TAN WITHIN REACH; WILL CONTINUE TO MONITOR.
[2017-03-06 18:31] LABS: URINE BILIRUBIN - DIPSTICK NEGATIVE (NEGATIVE); URINE BLOOD DIPSTICK LARGE (NEGATIVE); URINE COLOR YELLOW; URINE GLUCOSE - DIPSTICK NEGATIVE (NEGATIVE); URINE KETONE NEGATIVE (NEGATIVE); URINE NITRITE - DIPSTICK NEGATIVE (Negative); URINE PH 6.5 (4.5-8.0); URINE PROTEIN - DIPSTICK TRACE mg/dL (NEG-TRACE); URINE SPECIFIC GRAVITY 1.015; URINE UROBILINOGEN - DIPSTICK 0.2 E.U./dL (0.2)
[2017-03-06 18:33] LABS: URINE CLARITY HAZY; URINE LEUK ESTERASE MODERATE (NEGATIVE)
[2017-03-06 18:50] LABS: URINE SQUAMOUS EPITHELIAL CELL FEW EPI/hpf (0-FEW)
[2017-03-06 19:42] VITALS: BP 122/77
--- NOTE | 2017-03-06 21:02 | NUR ---
PT IN BED A/O X3, RESPIRATIONS EVEN AND UNLABORED ON RA. C/O PAIN TO LEFT FLANK AND ABDOMEN 10/10, MEDICATED WITH MORPHINE 2MG IV. TEMP 101.0 ICE PACKS APPLIED. ACCUCHECK 131 LEVEMIR 5UNTIS ADMINISTERED SQ, HELD NOVULIN N DUE TO POOR PO INTAKE, BED TIME SNACK PROVIDED. NS INFUSING TO LAC AT 100CC/HR. CASTRO DRAINING CLOUDY YELLOW URINE. CALL LIGHT IN REACH.
[2017-03-06 23:24] VITALS: BP 112/70
--- NOTE | 2017-03-07 01:33 | NUR ---
MEDICATED WITH TORADOL FOR C/O LEFT FLANK PAIN 01/08.
--- NOTE | 2017-03-07 04:39 | NUR ---
ADMINISTERED MORPHINE 2MG IV FOR C/P LEFT FLANK AND ABDOMINAL PAIN 01/08
[2017-03-07 05:00] VITALS: BP 121/79
[2017-03-07 07:03] LABS: HEMATOCRIT 26.4 % (37.0-47.0); HEMOGLOBIN 8.3 g/dl (12.0-16.0); IMMATURE GRANULOCYTES 0.4 % (0.0-1.0); MEAN CORPUSCULAR HGB 25.2 pG CALC (26.0-32.0); MEAN CORPUSCULAR HGB CONC 31.4 g/L CALC (32.0-36.0); NEUT# 8.62 thou/uL (2.00-7.15); RED BLOOD COUNT 3.3 mill/uL (4.20-5.60); RED CELL DISTRI WIDTH 16.6 % (11.5-15.5)
--- NOTE | 2017-03-07 08:00 | NUR ---
PT IN SUPINE POSITION; TELE MONITOR IN PLACE; PT C/O NAUSEA AND ABD PAIN 8/10; CASTRO DRAINING CLOUDY YELLOW URINE TO BEDSIDE DRAIN; IVF INFUSING WITHOUT DIFFICULTY,NO REDNESS EDEMA AT SITE; CALL TAN WITHIN REACH; WILL CONTINUE TO MONITOR.
[2017-03-07 08:05] VITALS: BP 140/87
[2017-03-07 09:44] LABS: ANION GAP 16 (6-22 (CALC)); BUN 8 mg/dL (7-17); BUN/CREATININE RATIO 10 (12-20 (CALC)); CALCIUM 7.5 mg/dL (8.4-10.2); CARBON DIOXIDE 20 mmol/l (22-30); CHLORIDE 111 mmol/l (95-108); CREATININE 0.8 mg/dL (0.5-1.0); GFR > 60 ML/MIN (>=60 (CALC)); GFR FOR AFR.AMER. > 60 ML/MIN (>=60 (CALC)); GLUCOSE 96 mg/dL (65-105); POTASSIUM 3.6 mmol/l (3.5-5.1); SODIUM 143 mmol/l (137-146)
--- NOTE | 2017-03-07 10:09 | NUR ---
CASTRO REMOVED; EMPTIED 600 ML OF CLOUDY YELLOW URINE; PT MEDICATED FOR C/O ABD PAIN 12/09 ORDERED; CALL TAN WITHIN REACH; WILL CONTINUE TO MONITOR.
--- NOTE | 2017-03-07 10:59 | NUR ---
S: ZENIAJAIROPALLAVI is a 46 F who presents with sepsis secondary to pyelonephritis with obstructive uropathy. O: Scr=0.8, CrCl= 100 ml/min Vancomycin trough = 16 A: Blood culture is pending. Urine culture is pending. Vancomycin trough is within therapeutic range. P: Patient is on Merrem 1g IV Q8H. Continue Vancomycin 1 g IV Q8H. Vancomycin trough is drawn before the dose on 03/09 @0130. Vancomycin goal trough is between 10-20 mcg/ml. Pharmacy will follow and or advise on antibiotics use as needed.
[2017-03-07 11:17] VITALS: BP 121/58
--- NOTE | 2017-03-07 11:47 | NUR ---
PT IN RECLINER; IVF INFUSING WELL; TOLERATED APPROX 50% OF LUNCH; CALL TAN WITHIN REACH; WILL CONTINUE TO MONITOR.
--- NOTE | 2017-03-07 15:00 | NUR ---
PHYSICAL THERAPY IN WITH PT
[2017-03-07 15:46] VITALS: BP 135/70
--- NOTE | 2017-03-07 17:50 | NUR ---
PT SITTING IN CHAIR; WILL EAT DINNER LATER; IVF INFUSING WITHOUT DIFFICULTY, NO REDNESS OR EDEMA AT SITE; CALL TAN WITHIN REACH; WILL CONTINUE TO MONITOR.
[2017-03-07 19:28] VITALS: BP 132/68
--- NOTE | 2017-03-07 19:40 | NUR ---
PT IN BED A/O X3, RESPIRATIONS EVEN AND UNLABORED ON RA, C/O PAIN 10/10 TO LEFT FLANK AND ABDOMEN, TEMP 101.4. MEDICATED WITH PERCOCET AND TYLENOL AT THIS ITME. ICE PACKS APPLIED. IV FLUIDS INFUSING TO LAC WITH NO COMPLICATIONS. FAMILY AT BED SIDE. ORIENTED TO USE CALL LIGHT FOR ASSISTANCE.
[2017-03-07 23:32] VITALS: BP 104/67
--- NOTE | 2017-03-07 23:33 | NUR ---
C/O LEFT FLANK AND ABDOMINAL PAIN 10/10 MEDICATED WITH TORADOL 15 IV. DIFLUCAN SPIKED AND INFUSING WITH NO COMPLICATIONS AT THIS TIME. CALL LIGHT IN REACH.
[2017-03-08] VITALS (8 sets, daily range): BP systolic 112–155; BP diastolic 61–97
--- NOTE | 2017-03-08 04:27 | NUR ---
OOB TO BATHROOM WITH STEADY GAIT, VOIDING CLOUDY YELLOW URINE THEN BACK TO BED. MEDICATED WITH PERCOCET FOR C/O LEFT FLAND AND ABDOMINAL PAIN 12/09. IV FLUIDS INFUSING TO LAC WITH NO COMPLICATIONS, CALL LIGHT IN REACH.
[2017-03-08 05:02] LABS: HEMATOCRIT 24.2 % (37.0-47.0); HEMOGLOBIN 7.6 g/dl (12.0-16.0); IMMATURE GRANULOCYTES 0.5 % (0.0-1.0); MEAN CELL VOLUME 80.7 fL CALC (80.0-100.0); MEAN CORPUSCULAR HGB 25.3 pG CALC (26.0-32.0); MEAN CORPUSCULAR HGB CONC 31.4 g/L CALC (32.0-36.0); NEUT# 7.95 thou/uL (2.00-7.15); RED CELL DISTRI WIDTH 16.6 % (11.5-15.5)
[2017-03-08 05:21] LABS: ANION GAP 16 (6-22 (CALC)); BUN 7 mg/dL (7-17); BUN/CREATININE RATIO 9 (12-20 (CALC)); CALCIUM 7.2 mg/dL (8.4-10.2); CARBON DIOXIDE 23 mmol/l (22-30); CHLORIDE 109 mmol/l (95-108); CREATININE 0.8 mg/dL (0.5-1.0); GFR > 60 ML/MIN (>=60 (CALC)); GFR FOR AFR.AMER. > 60 ML/MIN (>=60 (CALC)); GLUCOSE 80 mg/dL (65-105); MAGNESIUM 1.7 mg/dL (1.6-2.3); POTASSIUM 3.4 mmol/l (3.5-5.1); SODIUM 145 mmol/l (137-146)
--- NOTE | 2017-03-08 07:30 | NUR ---
PT RESTING WITH EYES CLOSED; AROUSED EASILY TO VERBAL STIMULI; IVF INFUSING WELL; CALL TAN WITHIN REACH; WILL CONTINUE TO MONITOR.
--- NOTE | 2017-03-08 08:00 | NUR ---
PT ASSESSMENT COMPLETED. PT ALERT, ORIENTED x3. SPEECH IS CLEAR. FACE SYMMETRICAL. PUPILS EQUAL, REACTIVE TO LIGHT. PT HAS STRONG UPPER AND LOWER EXTREMETIES. PTS HAS STRONG APICAL, RADIAL, PEDAL PULSES. BRISK CAPILLARY REFILLS. LUNG SOUNDS CLEAR, RESPIRATIONS EVEN AND UNLABORED. SKIN IS WARM, INTACT. PT HAS #20 GUAGE IV LAC. IV SITE HAS NO REDNESS OR SWELLING. PT STATES ABDOMINAL PAIN, RN NOTIFED. CALL LIGHT WITHIN REACH. BED IN LOWEST POSITION. SIDE RAILS UP. WILL CONTINUE TO MONITOR.
--- NOTE | 2017-03-08 09:00 | NUR ---
ASSISTED PT TO BATHROOM. PT VOIDED. PT BM WAS LOOSE, DARK GREEN. NOTED APPPROXIMATELY 4" RED GELATINOUS MATERIAL WITHIN BM. RN NOTIFIED. SPECIMEN COLLECTED AND SENT TO LAB. WILL CONTINUE TO MONITIOR.
--- NOTE | 2017-03-08 10:33 | NUR ---
PT MEDICATED FOR ABD PAIN 12/09; IVF INFUSING WELL; CALL TAN WITHIN REACH; WILL CONTINUE TO MONITOR.
--- NOTE | 2017-03-08 13:50 | NUR ---
PRBC INFUSION STARTED AT THIS TIME; INSTRUCTED PT AND FAMILY S/SX OF REACTION; VERBALIZE UNDERSTANDING OF SAME; CALL TAN WITHIN REACH; WILL CONTINUE TO MONITOR.
--- NOTE | 2017-03-08 16:50 | NUR ---
PRBC INFUSION COMPLETED; PT DOES NOT VOICE ANY COMPLAINTS AT THIS TIME; IVF INFUSING WITHOUT DIFFICULTY; DAUGHTER IN ROOM; CALL TAN WITHIN REACH; WILL CONTINUE TO MONITOR.
--- NOTE | 2017-03-08 19:20 | NUR ---
REPORT RECEIVED FROM LUCHO SMITH;PT AWAKE UPON ENRTY;INTRODUCED SELF TO PT;PT COMPLAINS OF ABDOMINAL PAIN RATING 9/10 ON THE PAIN SCALE AND REQUESTS PAIN MEDICATION;PT TO BE MEDICATED ACCORDINGLY;PT VOICES NO OTHER COMPLAINTS AT THIS TIME;BED IN LOWEST POSITION WITH CALL LIGHT IN REACH;WILL CONTINUE TO MONITOR
--- NOTE | 2017-03-08 19:28 | NUR ---
CALL BACK RECEIVED FROM TRANSFER CENTER;APPLE REPORTED PT HAS AN ACCEPTING MD; DR PATINO AND BED ROOM 208 BED 2 AT [facility];TRANSPORT TO BE SET UP AND PT TO BE NOTIFIED OF TRANSFER STATUS
--- NOTE | 2017-03-08 19:37 | NUR ---
[facility] NOTIFIED OF PENDING TRANSFER;ETA 20 MINS ON ARRIVAL
--- NOTE | 2017-03-08 19:50 | NUR ---
PT RESTING IN SEMI FOWLERS POSITION;PT UPDATED ON ETA OF TRANSFER AND VERBALIZES UNDERSTANDING;PT MEDICATED WITH 15MG OF TORDAL IV FOR ABDOMINAL PAIN RATING 9/10 ON THE PAIN SCALE,WILL MONITOR FOR EFFECT;RESPIRATIONS EVEN AND UNLABORED ON RA;VS OBTAINED AND ASSESSMENT COMPLETED;#20G TO RAC INFUSING NS @ 100ML/HR WELL, SITE APPEARS HEALTHY;TELE MONITOR IN PLACE;PT AMBULATED WITH A STEADY GAIT AND VOIDED 700CC OF YELLOW URINE;REPOSITIONED BACK INTO BED;PT A&O X3;SKIN INTACT;SAFETY PRECAUTIONS REINFORCED;PT VOICES NO OTHER NEEDS AT THIS TIME AND IS EDUCATED TO CALL FOR ASSISTANCE IF NEEDED;CALL LIGHT IN REACH;WILL CONTINUE TO MONITOR
--- NOTE | 2017-03-08 20:00 | NUR ---
PT LEFT [facility]IA [facility] AT THIS TIME IN STABLE CONDITION;ALL PERSONAL BELONGINGS LEFT WITH FAMILY MEMBERS
--- NOTE | 2017-03-08 20:10 | NUR ---
REPORT GIVEN TO LUCHO RM AT [facility]
== END 2017-03-08 20:00 | DRG 872 ==
LOC: ED 10:30 → ED-I 15:07 → ED 15:26 → MS2 15:27
PROVIDERS: Emergency Medicine; Internal Medicine; Nurse Practitioner Family; ADMIT Internal Medicine; ATTEND Internal Medicine
PROC: 0T9B70Z Drainage of Bladder with Drainage Device, Via Natural or Artificial Opening (ICD-10-PCS; 2017-03-06)
PROC: 30233N1 Transfusion of Nonautologous Red Blood Cells into Peripheral Vein, Percutaneous Approach (ICD-10-PCS; principal; 2017-03-08)
DX: A41.9 Sepsis, unspecified organism (principal); E11.69 Type 2 diabetes mellitus with other specified complication; E11.65 Type 2 diabetes mellitus with hyperglycemia; E87.1 Hypo-osmolality and hyponatremia; B37.49 Other urogenital candidiasis; N13.8 Other obstructive and reflux uropathy; Z68.41 Body mass index [BMI] 40.0-44.9, adult; N13.6 Pyonephrosis; E66.01 Morbid (severe) obesity due to excess calories; I10 Essential (primary) hypertension; E03.9 Hypothyroidism, unspecified; E78.2 Mixed hyperlipidemia; K59.00 Constipation, unspecified; D63.8 Anemia in other chronic diseases classified elsewhere; D50.0 Iron deficiency anemia secondary to blood loss (chronic); E87.6 Hypokalemia; Z79.4 Long term (current) use of insulin; Z91.19 Patient's noncompliance with other medical treatment and regimen
CPT/HCPCS: J0692; J1650; J1756; P9016

== ENCOUNTER 2017-08-03 19:24 | Inpatient (IN) | payer OTHER ==
[~2017-08-03] VITALS: Ht 160 cm; Wt 101.6 kg
[~2017-08-03 19:24] MED LIST changes: +FISH OIL1000 M2 PO; +OXYCODONE HCL5 MG PO
[2017-08-03 20:09] LABS: IMMATURE GRANULOCYTES 0.3 % (0.0-1.0); MEAN CELL VOLUME 82.2 fL CALC (80.0-100.0); MEAN CORPUSCULAR HGB 25.9 pG CALC (26.0-32.0); MEAN CORPUSCULAR HGB CONC 31.5 g/L CALC (32.0-36.0); NEUT# 8.52 thou/uL (2.00-7.15); RED BLOOD COUNT 3.98 mill/uL (4.20-5.60); RED CELL DISTRI WIDTH 15.9 % (11.5-15.5)
[2017-08-03 20:10] LABS: HEMATOCRIT 32.7 % (37.0-47.0); HEMOGLOBIN 10.3 g/dl (12.0-16.0); URINE BILIRUBIN - DIPSTICK NEGATIVE (NEGATIVE); URINE BLOOD DIPSTICK SMALL (NEGATIVE); URINE COLOR YELLOW; URINE GLUCOSE - DIPSTICK NEGATIVE (NEGATIVE); URINE KETONE NEGATIVE (NEGATIVE); URINE NITRITE - DIPSTICK NEGATIVE (Negative); URINE PROTEIN - DIPSTICK NEGATIVE (NEG-TRACE); URINE SPECIFIC GRAVITY <=1.005; URINE UROBILINOGEN - DIPSTICK 0.2 E.U./dL (0.2)
[2017-08-03 20:12] LABS: URINE LEUK ESTERASE LARGE (NEGATIVE)
[2017-08-03 20:13] LABS: URINE CLARITY CLOUDY
[2017-08-03 20:34] LABS: ALBUMIN 3.9 g/dL (3.2-5.0); BILIRUBIN, TOTAL 0.5 mg/dL (0.0-1.4); CREATININE 1.3 mg/dL (0.5-1.0)
[2017-08-03 20:39] LABS: POTASSIUM 4.4 mmol/l (3.5-5.1)
[2017-08-03 20:57] LABS: URINE BACTERIA FEW hpf; URINE SQUAMOUS EPITHELIAL CELL FEW EPI/hpf (0-FEW); URINE WBC TNTC WBC/hpf (0-5)
[2017-08-04 00:10] VITALS: BP 104/65
[2017-08-04] MEDS ORDERED: METFORMIN500 MG PO (00:14)
[2017-08-04 00:30] VITALS: BP 133/83
[2017-08-04 04:32] VITALS: BP 118/72
[2017-08-04 05:15] LABS: ANION GAP 16 (6-22 (CALC)); BUN 16 mg/dL (7-17); BUN/CREATININE RATIO 18 (12-20 (CALC)); CARBON DIOXIDE 25 mmol/l (22-30); CHLORIDE 105 mmol/l (95-108); CREATININE 0.9 mg/dL (0.5-1.0); GFR > 60 ML/MIN (>=60 (CALC)); GFR FOR AFR.AMER. > 60 ML/MIN (>=60 (CALC)); POTASSIUM 4.1 mmol/l (3.5-5.1); SODIUM 141 mmol/l (137-146)
[2017-08-04 05:28] LABS: HEMOGLOBIN 8.7 g/dl (12.0-16.0); MEAN CELL VOLUME 83.6 fL CALC (80.0-100.0); MEAN CORPUSCULAR HGB CONC 31.1 g/L CALC (32.0-36.0); RED BLOOD COUNT 3.35 mill/uL (4.20-5.60); RED CELL DISTRI WIDTH 15.6 % (11.5-15.5)
[2017-08-04 08:57] VITALS: BP 107/70
== END 2017-08-04 12:47 | DRG 690 ==
LOC: ED 19:24 → ED-I 21:59 → ED 22:59 → MS2 23:00
PROVIDERS: Emergency Medicine; ADMIT Internal Medicine; ATTEND Internal Medicine
DX: N13.6 Pyonephrosis (principal); D50.0 Iron deficiency anemia secondary to blood loss (chronic); E11.9 Type 2 diabetes mellitus without complications; D63.8 Anemia in other chronic diseases classified elsewhere; E03.9 Hypothyroidism, unspecified; I10 Essential (primary) hypertension; E78.5 Hyperlipidemia, unspecified; Z79.4 Long term (current) use of insulin; Z87.442 Personal history of urinary calculi
CPT/HCPCS: J0692; J1956; S0164

== ENCOUNTER 2018-08-17 22:18 | Emergency (ER) | payer OTHER ==
[~2018-08-17] VITALS: Ht 160 cm; Wt 103.0 kg
[2018-08-17 23:09] LABS: IMMATURE GRANULOCYTES 0.3 % (0.0-5.0); MEAN CELL VOLUME 82.4 fL CALC (80.0-100.0); MEAN CORPUSCULAR HGB 25.7 pG CALC (26.0-32.0); MEAN CORPUSCULAR HGB CONC 31.2 g/L CALC (32.0-36.0); NEUT# 4.57 thou/uL (2.00-7.15); RED BLOOD COUNT 4.2 mill/uL (4.20-5.60); RED CELL DISTRI WIDTH 15.3 % (11.5-15.5)
[2018-08-17 23:10] LABS: URINE BILIRUBIN - DIPSTICK NEGATIVE (NEGATIVE); URINE BLOOD DIPSTICK LARGE (NEGATIVE); URINE COLOR YELLOW; URINE GLUCOSE - DIPSTICK >=1000 mg/dL (NEGATIVE); URINE KETONE NEGATIVE (NEGATIVE); URINE LEUK ESTERASE SMALL (NEGATIVE); URINE NITRITE - DIPSTICK NEGATIVE (Negative); URINE PROTEIN - DIPSTICK 30 mg/dL (NEG-TRACE); URINE UROBILINOGEN - DIPSTICK 0.2 E.U./dL (0.2)
[2018-08-17 23:19] LABS: HEMOGLOBIN 10.8 g/dl (12.0-16.0)
[2018-08-17 23:20] LABS: HEMATOCRIT 34.6 % (37.0-47.0)
[2018-08-17 23:26] LABS: ALBUMIN 3.8 g/dL (3.2-5.0); ALKALINE PHOSPHATASE 159 u/l (38-126); AMYLASE 62 u/l (30-110); BILIRUBIN, TOTAL 0.3 mg/dL (0.0-1.4); BUN 25 mg/dL (7-17); BUN/CREATININE RATIO 27 (12-20 (CALC)); CARBON DIOXIDE 27 mmol/l (22-30); CHLORIDE 94 mmol/l (95-108); CREATININE 0.9 mg/dL (0.5-1.0); GFR > 60 ML/MIN (>=60 (CALC)); GFR FOR AFR.AMER. > 60 ML/MIN (>=60 (CALC)); LIPASE 249 u/l (23-300); POTASSIUM 4.6 mmol/l (3.5-5.1); SGOT/AST 9 u/l (14-36)
[2018-08-17 23:27] LABS: URINE BACTERIA RARE hpf; URINE WBC TNTC WBC/hpf (0-5)
[2018-08-17 23:29] LABS: ANION GAP 14 (6-22 (CALC)); SODIUM 130 mmol/l (137-146); TOTAL PROTEIN 7.7 g/dL (6.3-8.2)
[2018-08-17] MEDS ORDERED: LEVEMIR100 UNIT/M SC (23:34)
[2018-08-18 03:45] VITALS: BP 124/79
== END 2018-08-18 03:42 | disposition short-term general hospital (02) ==
LOC: ED 22:18
PROVIDERS: Emergency Medicine
DX: N12 Tubulo-interstitial nephritis, not specified as acute or chronic (principal); E11.9 Type 2 diabetes mellitus without complications; Z79.4 Long term (current) use of insulin
CPT/HCPCS: Q9967; S0164

== ENCOUNTER 2019-06-09 | Emergency (ER) | payer MEDICAID ==
[~2019-06-09] MED LIST changes: +LEVEMIR100 UNIT/M SC
[2019-06-09 23:14] LABS: HEMATOCRIT 31.1 % (37.0-47.0); HEMOGLOBIN 9.8 g/dl (12.0-16.0); IMMATURE GRANULOCYTES 0.5 % (0.0-5.0); MEAN CELL VOLUME 82.7 fL CALC (80.0-100.0); MEAN CORPUSCULAR HGB 26.1 pG CALC (26.0-32.0); MEAN CORPUSCULAR HGB CONC 31.5 g/L CALC (32.0-36.0); NEUT# 13.72 thou/uL (2.00-7.15); RED BLOOD COUNT 3.76 mill/uL (4.20-5.60); RED CELL DISTRI WIDTH 14.2 % (11.5-15.5)
[2019-06-09 23:17] LABS: URINE BILIRUBIN - DIPSTICK NEGATIVE (NEGATIVE); URINE BLOOD DIPSTICK MODERATE (NEGATIVE); URINE COLOR YELLOW; URINE GLUCOSE - DIPSTICK >=1000 mg/dL (NEGATIVE); URINE KETONE NEGATIVE (NEGATIVE); URINE PROTEIN - DIPSTICK TRACE mg/dL (NEG-TRACE); URINE UROBILINOGEN - DIPSTICK 0.2 E.U./dL (0.2)
[2019-06-09 23:24] LABS: URINE LEUK ESTERASE SMALL (NEGATIVE); URINE NITRITE - DIPSTICK NEGATIVE (Negative)
[2019-06-09 23:27] LABS: ALBUMIN 3.4 g/dL (3.2-5.0); ALKALINE PHOSPHATASE 210 u/l (38-126); BUN 23 mg/dL (7-17); BUN/CREATININE RATIO 30 (12-20 (CALC)); CARBON DIOXIDE 24 mmol/l (22-30); CHLORIDE 93 mmol/l (95-108); CREATININE 0.8 mg/dL (0.5-1.0); GFR > 60 ML/MIN (>=60 (CALC)); GFR FOR AFR.AMER. > 60 ML/MIN (>=60 (CALC)); SGOT/AST 12 u/l (14-36); SODIUM 129 mmol/l (137-146); TOTAL PROTEIN 7.2 g/dL (6.3-8.2)
[2019-06-09 23:28] LABS: URINE BACTERIA MODERATE hpf; URINE EPITHELIAL CELLS MODERATE EPI/hpf (0-FEW); URINE RBC 50-100 RBC/hpf (0-5); URINE WBC >100 WBC/hpf (0-5)
[2019-06-09 23:32] LABS: ANION GAP 17 (6-22 (CALC)); BILIRUBIN, TOTAL 0.6 mg/dL (0.0-1.4); POTASSIUM 5.3 mmol/l (3.5-5.1)
== END 2019-06-10 01:56 | disposition short-term general hospital (02) | DRG 690 ==
PROVIDERS: Emergency Medicine
DX: N13.6 Pyonephrosis (principal); E11.9 Type 2 diabetes mellitus without complications; I10 Essential (primary) hypertension; Z79.4 Long term (current) use of insulin

== ENCOUNTER 2019-08-24 04:31 | Observation (INO) | payer MEDICAID ==
[~2019-08-24] VITALS: Ht 160 cm; Wt 105.0 kg
[2019-08-24] MEDS ORDERED: GABAPENTIN100 MG PO (05:01)
[2019-08-24] MEDS ORDERED: LOPID600 MG PO (05:02)
[2019-08-24 05:21] LABS: HEMATOCRIT 32.9 % (37.0-47.0); HEMOGLOBIN 10.2 g/dl (12.0-16.0); IMMATURE GRANULOCYTES 0.3 % (0.0-5.0); MEAN CELL VOLUME 84.8 fL CALC (80.0-100.0); MEAN CORPUSCULAR HGB 26.3 pG CALC (26.0-32.0); NEUT# 9.15 thou/uL (2.00-7.15); RED BLOOD COUNT 3.88 mill/uL (4.20-5.60); RED CELL DISTRI WIDTH 16.2 % (11.5-15.5)
[2019-08-24 05:25] LABS: ALBUMIN 4.6 g/dL (3.2-5.0); ALKALINE PHOSPHATASE 174 u/l (38-126); AMYLASE 153 u/l (30-110); ANION GAP 15 (6-22 (CALC)); BILIRUBIN, TOTAL 0.3 mg/dL (0.0-1.4); BUN 37 mg/dL (7-17); BUN/CREATININE RATIO 42 (12-20 (CALC)); CARBON DIOXIDE 23 mmol/l (22-30); CHLORIDE 102 mmol/l (95-108); CREATININE 0.9 mg/dL (0.5-1.0); GFR > 60 ML/MIN (>=60 (CALC)); GFR FOR AFR.AMER. > 60 ML/MIN (>=60 (CALC)); LIPASE 802 u/l (23-300); POTASSIUM 4.8 mmol/l (3.5-5.1); SGOT/AST 21 u/l (14-36); SODIUM 135 mmol/l (137-146)
[2019-08-24 05:57] LABS: URINE BILIRUBIN - DIPSTICK NEGATIVE (NEGATIVE); URINE BLOOD DIPSTICK LARGE (NEGATIVE); URINE COLOR YELLOW; URINE GLUCOSE - DIPSTICK 500 mg/dL (NEGATIVE); URINE KETONE NEGATIVE (NEGATIVE); URINE LEUK ESTERASE NEGATIVE (NEGATIVE); URINE NITRITE - DIPSTICK NEGATIVE (Negative); URINE PROTEIN - DIPSTICK 100 mg/dL (NEG-TRACE); URINE SPECIFIC GRAVITY 1.025; URINE UROBILINOGEN - DIPSTICK 0.2 E.U./dL (0.2)
[2019-08-24 06:07] LABS: URINE RBC 25-50 RBC/hpf (0-5)
[2019-08-24 12:15] VITALS: BP 106/79
[2019-08-24 15:25] VITALS: BP 99/68
[2019-08-24 18:50] VITALS: BP 128/78
[2019-08-25 05:30] LABS: HEMATOCRIT 30.7 % (37.0-47.0); HEMOGLOBIN 9.5 g/dl (12.0-16.0); IMMATURE GRANULOCYTES 0.2 % (0.0-5.0); MEAN CELL VOLUME 85.5 fL CALC (80.0-100.0); MEAN CORPUSCULAR HGB 26.5 pG CALC (26.0-32.0); MEAN CORPUSCULAR HGB CONC 30.9 g/dL CAL (32.0-36.0); NEUT# 6.22 thou/uL (2.00-7.15); RED BLOOD COUNT 3.59 mill/uL (4.20-5.60); RED CELL DISTRI WIDTH 16.5 % (11.5-15.5)
[2019-08-25 06:00] LABS: ANION GAP 13 (6-22 (CALC)); BUN 26 mg/dL (7-17); BUN/CREATININE RATIO 35 (12-20 (CALC)); CARBON DIOXIDE 20 mmol/l (22-30); CHLORIDE 106 mmol/l (95-108); CREATININE 0.7 mg/dL (0.5-1.0); GFR > 60 ML/MIN (>=60 (CALC)); GFR FOR AFR.AMER. > 60 ML/MIN (>=60 (CALC)); SODIUM 134 mmol/l (137-146)
[2019-08-25 08:43] VITALS: BP 115/77
[2019-08-25] MEDS ORDERED: TRAMADOL HCL50 MG PO ×2 (12:11)
== END 2019-08-25 13:00 | disposition home or self-care (01) ==
LOC: ED 04:31 → ED-I 09:05 → ED 09:33 → ED-I 09:34 → MS2 09:34
PROVIDERS: Family Medicine; ADMIT Internal Medicine; ATTEND Internal Medicine
DX: K85.90 Acute pancreatitis without necrosis or infection, unspecified (principal); N20.0 Calculus of kidney; E11.65 Type 2 diabetes mellitus with hyperglycemia; I10 Essential (primary) hypertension; E03.9 Hypothyroidism, unspecified; E78.5 Hyperlipidemia, unspecified; E66.01 Morbid (severe) obesity due to excess calories; Z68.41 Body mass index [BMI] 40.0-44.9, adult; Z79.4 Long term (current) use of insulin; Z90.5 Acquired absence of kidney; Z11.59 Encounter for screening for other viral diseases
CPT/HCPCS: G0378; Q9967

== ENCOUNTER 2019-12-17 09:35 | Observation (INO) | payer MEDICAID ==
[~2019-12-17] VITALS: Ht 160 cm; Wt 106.2 kg
[~2019-12-17 09:35] MED LIST changes: +GABAPENTIN100 MG PO; +LOPID600 MG PO; +TRAMADOL HCL50 MG PO
--- NOTE | 2019-12-17 09:38 | NUR ---
PATIENT REFUSED WHEELCHAIR AND AMBUALTED TO ROOM WITH A STAEDY GAIT FOR BEDSIDE TRIAGE.
[2019-12-17 10:14] LABS: URINE BILIRUBIN - DIPSTICK NEGATIVE (NEGATIVE); URINE BLOOD DIPSTICK TRACE-LYSED (NEGATIVE); URINE COLOR YELLOW; URINE GLUCOSE - DIPSTICK >=1000 mg/dL (NEGATIVE); URINE KETONE NEGATIVE (NEGATIVE); URINE LEUK ESTERASE NEGATIVE (NEGATIVE); URINE NITRITE - DIPSTICK NEGATIVE (Negative); URINE PH 6.5 (4.5-8.0); URINE PROTEIN - DIPSTICK 30 mg/dL (NEG-TRACE); URINE UROBILINOGEN - DIPSTICK 0.2 E.U./dL (0.2)
[2019-12-17 10:16] LABS: HEMATOCRIT 35.2 % (37.0-47.0); HEMOGLOBIN 10.8 g/dl (12.0-16.0); IMMATURE GRANULOCYTES 0.3 % (0.0-5.0); MEAN CELL VOLUME 82.8 fL CALC (80.0-100.0); MEAN CORPUSCULAR HGB 25.4 pG CALC (26.0-32.0); MEAN CORPUSCULAR HGB CONC 30.7 g/dL CAL (32.0-36.0); NEUT# 7.15 thou/uL (2.00-7.15); RED BLOOD COUNT 4.25 mill/uL (4.20-5.60); RED CELL DISTRI WIDTH 15.1 % (11.5-15.5)
[2019-12-17 10:19] LABS: URINE EPITHELIAL CELLS MODERATE EPI/hpf (0-FEW); URINE RBC 0-2 RBC/hpf (0-5)
--- NOTE | 2019-12-17 10:22 | NUR ---
PT PRESENTS WITH 10/10 CHEST PAIN THAT RADIATES TO THE LEFT ARM, LEFT UPPER LEG AND LOWER BACK. SHE STATES THAT PAIN INCREASES WITH INSPIRATION. STATES FEELING "LIKE PASSING OUT" AT TIMES. STARTED TO HAVE NAUSEA THIS MORNING. AOX4, PERRLA. DENIES SOB. WILL CONTINUE TO MONITOR.
[2019-12-17 10:31] LABS: ALBUMIN 4.1 g/dL (3.2-5.0); ALKALINE PHOSPHATASE 184 u/l (38-126); AMYLASE 66 u/l (30-110); ANION GAP 16 (6-22 (CALC)); BILIRUBIN, TOTAL 0.4 mg/dL (0.0-1.4); CARBON DIOXIDE 25 mmol/l (22-30); CHLORIDE 93 mmol/l (95-108); CREATININE 0.9 mg/dL (0.5-1.0); GFR > 60 ML/MIN (>=60 (CALC)); GFR FOR AFR.AMER. > 60 ML/MIN (>=60 (CALC)); LIPASE 317 u/l (23-300); POTASSIUM 4.9 mmol/l (3.5-5.1); SGOT/AST 18 u/l (14-36); SODIUM 130 mmol/l (137-146); TOTAL PROTEIN 7.5 g/dL (6.3-8.2)
[2019-12-17 10:40] LABS: BUN 29 mg/dL (7-17); BUN/CREATININE RATIO 32 (12-20 (CALC))
[2019-12-17 10:43] LABS: MYOGLOBIN 54 ng/mL (0 - 62)
--- NOTE | 2019-12-17 11:30 | NUR ---
PT RESTING ON STRETCHER, CALL LIGHT WITHIN REACH. NOTIFIED OF PENDING ADMISSION.
--- NOTE | 2019-12-17 12:00 | NUR ---
UPON REASSESSMENT OF SUGAR, BG READS 395. MD NOTIFIED. CHEST PAIN IS CURRENTLY AT 6/10
--- NOTE | 2019-12-17 12:35 | NUR ---
ATEMPTED TO CALL REPORT TO MED SURG AND CORRECTIONAL COUNSELOR STATES NURSE IS BUSY WITH PTS AND WILL CALL BACK
--- NOTE | 2019-12-17 13:01 | NUR ---
GAVE REPORT TO KRYSTINA
--- NOTE | 2019-12-17 13:05 | NUR ---
PT ARRIVED TO ROOM 290 VIA STRETCHER ACCOMAPNIED BY NURSE. PT ABLE TO TRANSFER SELF FROM STRECHER TO BED. ORIENTED TO ROOM AND CALL LIGHT SYSTEM.
--- NOTE | 2019-12-17 13:13 | NUR ---
PT TRANSPORTED TO [facility] SURG STABLE AND IN NO DISTRESS. CARE ASSUMED TO KRYSTINA Admission Note Report Given to: KRYSTINA Transported by: Wheelchair X Stretcher Transported with: X Nurse Transporter X Patent IV O2 X Cannoneer Location: ICU X MS2
[2019-12-17 13:25] VITALS: BP 151/94
--- NOTE | 2019-12-17 14:10 | NUR ---
PT RESTING IN BED AWAKE. PT IS ALERT AND OREINTED X3. ADMISSION ASSESSEMNT COMPLETED AT THIS TIME. IV PATENT X1. CALL LIGHT IN REACH. WILL CONTINUE TO MONITOR.
[2019-12-17 14:50] VITALS: BP 158/92
[2019-12-17 19:00] VITALS: BP 155/75
--- NOTE | 2019-12-17 20:18 | NUR ---
PT RESTING IN BED, NO SIGNS OF DISTRESS NOTED, RESP EVEN AND UNLABORED. PT C/O PAIN 10/10 TO ABD LLQ AND ACROSS TO R SIDE. PT IS NOT DUE FOR MEDICATION AT THIS TIME. WILL NOTIFY MD FOR FURTHER ORDERS. PT MEDICATED WITH INSULIN FOR ACCUCHECK OF 433. DISCUSSED POC, PT VERBALIZED UNDERSTANDING. ASSESSMENT COMPLETED, CALL LIGHT IN REACH,CONTINUE TO MONITOR.
--- NOTE | 2019-12-17 21:45 | NUR ---
PT RESTING IN BED INFORMED PT THAT SHE WILL GET ADDITIONAL 4 UNITS OF NOVOLOG, PER MD ORDERS. DISCUSSED WITH PT HER CONSTIPATION, MOM AND WARM PRUNE JUICE GIVEN AND IF NO RELIEF THEN PT IS TO RECEIVE GOLYTELY, PT VERBALIZED UNDERSTANDING. CALL LIGHT IN REACH,CONTINUE TO MONITOR.
[2019-12-18] VITALS: BP 140/87
--- NOTE | 2019-12-18 00:29 | NUR ---
PT RESTING IN BED, MACHINIST BRAKE AT BEDSIDE. PT HAS NOT HAD A BM YET, BUT DOES NOT C/O PAIN AT THIS TIME. CALL LIGHT IN REACH,CONTINUE TO MONITOR.
[2019-12-18 04:00] VITALS: BP 159/80
--- NOTE | 2019-12-18 04:25 | NUR ---
PT SITTING ON TOILET, STILL UNABLE TO HAVE A BM, DISCUSSED GOLYTLEY WITH PT, VERBALIZED UNDERSTANDING. AND AGREES. CONTINUE TO MONITOR.
[2019-12-18 06:18] LABS: HEMATOCRIT 35.3 % (37.0-47.0); HEMOGLOBIN 10.6 g/dl (12.0-16.0); IMMATURE GRANULOCYTES 0.3 % (0.0-5.0); MEAN CELL VOLUME 84.2 fL CALC (80.0-100.0); MEAN CORPUSCULAR HGB 25.3 pG CALC (26.0-32.0); NEUT# 5.95 thou/uL (2.00-7.15); RED BLOOD COUNT 4.19 mill/uL (4.20-5.60); RED CELL DISTRI WIDTH 15.6 % (11.5-15.5)
[2019-12-18 06:42] LABS: ALBUMIN 3.7 g/dL (3.2-5.0); ALKALINE PHOSPHATASE 156 u/l (38-126); ANION GAP 11 (6-22 (CALC)); BILIRUBIN, TOTAL 0.3 mg/dL (0.0-1.4); BUN 23 mg/dL (7-17); BUN/CREATININE RATIO 31 (12-20 (CALC)); CARBON DIOXIDE 26 mmol/l (22-30); CHLORIDE 101 mmol/l (95-108); CHOLESTEROL HDL RATIO 6.5 (<4.4 (CALC)); CREATININE 0.7 mg/dL (0.5-1.0); GFR > 60 ML/MIN (>=60 (CALC)); GFR FOR AFR.AMER. > 60 ML/MIN (>=60 (CALC)); HDL CHOLESTEROL 39 mg/dL (>=40); POTASSIUM 4.9 mmol/l (3.5-5.1); SGOT/AST 19 u/l (14-36); SODIUM 133 mmol/l (137-146); TOTAL PROTEIN 7.1 g/dL (6.3-8.2); TOTAL TRIGLYCERIDES 387 mg/dl (30-149); VLDL CHOLESTROL 77 mg/dl (1-41 (CALC))
[2019-12-18 06:50] LABS: MAGNESIUM 2.3 mg/dL (1.6-2.3)
[2019-12-18 06:51] LABS: CALCULATED LDLCHOLESTEROL 138 mg/dL (62-129 (CALC)); TOTAL CHOLESTEROL 254 mg/dl (0-199)
[2019-12-18 07:50] VITALS: BP 115/68
--- NOTE | 2019-12-18 07:50 | NUR ---
ASSESSMENT IS COMPLETED: IV SITE IS FREE FROM REDNESS OR EDEMA, HR IS REG,PULSES ARE STRONG X4, ABD IS SOFT WITH ACTIVE BS. BREATH SOUNDS ARE CLEAR BILATERALLY. TELE MONITOR IN PLACE. CONTINUE TO OBSERVE AND MONITOR.
[2019-12-18] MEDS ORDERED: MIRALAX3350 NF PO (11:42)
[2019-12-18] MEDS ORDERED: DULCOLAX10 MG RE (11:45)
[2019-12-18 12:00] VITALS: BP 155/90
--- NOTE | 2019-12-18 12:00 | NUR ---
PT IS RELAXING IN BED WITH NO DISTRESS NOTED. IV SITE IS FREE FROM REDNESS OR EDEMA. CONTINUE TO OBSERVE AND MONITOR.
--- NOTE | 2019-12-18 13:10 | NUR ---
IV SITE DISCONTINUED CATHETER INTACT, NO REDNESS OR EDEMA. DISCHARGE INSTRUCTIONS GIVEN TO PT AND INTERPRETED BY AN NASH OVER THE PHONE. NO FURTHER QUESTIONS FROM PT. TELE MONITOR TAKEN OFF AND PT CALLED FAMILY. CONTINUE TO OBSERVE AND MONITOR.
--- NOTE | 2019-12-18 13:58 | NUR ---
Discharge instructions given. Patient verbalizes understanding of same. Discharged in stable condition via Wheelchair to Home with family. All belongings sent with pt.
== END 2019-12-18 13:49 | disposition home or self-care (01) ==
LOC: ED 09:35 → ED-I 11:16 → ED 11:59 → MS2 12:00
PROVIDERS: Emergency Medicine; Nurse Practitioner; ADMIT Internal Medicine; ATTEND Internal Medicine
DX: R07.9 Chest pain, unspecified (principal); E11.65 Type 2 diabetes mellitus with hyperglycemia; K59.00 Constipation, unspecified; U07.1 COVID-19; I10 Essential (primary) hypertension; E03.9 Hypothyroidism, unspecified; E78.5 Hyperlipidemia, unspecified; E66.01 Morbid (severe) obesity due to excess calories; Z68.41 Body mass index [BMI] 40.0-44.9, adult; D64.9 Anemia, unspecified; E87.1 Hypo-osmolality and hyponatremia; Z79.4 Long term (current) use of insulin
CPT/HCPCS: G0378; J1650

== ENCOUNTER 2021-05-23 21:00 | Emergency (ER) | payer MEDICAID ==
[~2021-05-23] VITALS: Ht 160 cm; Wt 119.0 kg
[~2021-05-23 21:00] MED LIST changes: +DULCOLAX10 MG RE; +LEVEMIR FL100 UNIT/M SC; -LEVEMIR100 UNIT/M SC; +MIRALAX3350 NF PO
[2021-05-23 21:59] LABS: IMMATURE GRANULOCYTES 0.1 % (0.0-5.0); MEAN CORPUSCULAR HGB 25.9 pG CALC (26.0-32.0); MEAN CORPUSCULAR HGB CONC 29.8 g/dL CAL (32.0-36.0); NEUT# 8.52 thou/uL (2.00-7.15); RED BLOOD COUNT 3.32 mill/uL (4.20-5.60); RED CELL DISTRI WIDTH 14.7 % (11.5-15.5)
[2021-05-23 22:00] LABS: HEMATOCRIT 28.9 % (37.0-47.0); HEMOGLOBIN 8.6 g/dl (12.0-16.0)
[2021-05-23 22:15] LABS: ALBUMIN 3.8 g/dL (3.2-5.0); ALKALINE PHOSPHATASE 132 u/l (38-126); AMYLASE 79 u/l (30-110); ANION GAP 13 (6-22 (CALC)); BILIRUBIN, TOTAL 0.2 mg/dL (0.0-1.4); BUN/CREATININE RATIO 31 (12-20 (CALC)); CARBON DIOXIDE 23 mmol/l (22-30); CHLORIDE 102 mmol/l (95-108); CREATININE 1.6 mg/dL (0.5-1.0); GFR 34 ML/MIN (>=60 (CALC)); GFR FOR AFR.AMER. 42 ML/MIN (>=60 (CALC)); LIPASE 253 u/l (23-300); POTASSIUM 4.9 mmol/l (3.5-5.1); SGOT/AST 17 u/l (14-36); SODIUM 133 mmol/l (137-146); TOTAL PROTEIN 7.5 g/dL (6.3-8.2)
[2021-05-23 22:17] LABS: BUN 50 mg/dL (7-17)
[2021-05-23 22:25] LABS: D-DIMER 0.52 mg/L (0.19-0.60)
[2021-05-23 22:27] LABS: MYOGLOBIN 62 ng/mL (0 - 62)
[2021-05-23 22:34] LABS: ACT PARTIAL THROMBO TIME 26.1 SECONDS (20.0-32.5); INTERNATIONAL NORMALIZED RATIO 0.9 RATIO (0.7-1.3); PROTHROMBIN TIME 9.5 SECONDS (9.0-12.5)
[2021-05-23] MEDS ORDERED: VOLTAREN75 MG PO (23:21)
[2021-05-24 00:15] VITALS: BP 116/46
== END 2021-05-24 00:30 | disposition home or self-care (01) ==
LOC: ED 21:00
PROVIDERS: Family Medicine
DX: R07.89 Other chest pain (principal); D64.9 Anemia, unspecified; E11.65 Type 2 diabetes mellitus with hyperglycemia; I10 Essential (primary) hypertension; Z79.84 Long term (current) use of oral hypoglycemic drugs; Z79.4 Long term (current) use of insulin

== ENCOUNTER 2021-06-26 14:57 | Emergency (ER) | payer MEDICAID ==
[2021-06-26] VITALS (8 sets, daily range): BP systolic 110–176; BP diastolic 34–93
[~2021-06-26] VITALS: Ht 160 cm; Wt 114.5 kg
[~2021-06-26 14:57] MED LIST changes: +VOLTAREN75 MG PO
[2021-06-26 17:04] LABS: HEMATOCRIT 32.9 % (37.0-47.0); IMMATURE GRANULOCYTES 0.2 % (0.0-5.0); MEAN CELL VOLUME 85.2 fL CALC (80.0-100.0); MEAN CORPUSCULAR HGB 25.9 pG CALC (26.0-32.0); MEAN CORPUSCULAR HGB CONC 30.4 g/dL CAL (32.0-36.0); NEUT# 8.91 thou/uL (2.00-7.15); RED BLOOD COUNT 3.86 mill/uL (4.20-5.60)
[2021-06-26 17:06] LABS: URINE BILIRUBIN - DIPSTICK NEGATIVE (NEGATIVE); URINE BLOOD DIPSTICK TRACE-INTACT (NEGATIVE); URINE COLOR YELLOW; URINE GLUCOSE - DIPSTICK 100 mg/dL (NEGATIVE); URINE KETONE NEGATIVE (NEGATIVE); URINE LEUK ESTERASE NEGATIVE (NEGATIVE); URINE PROTEIN - DIPSTICK 100 mg/dL (NEG-TRACE); URINE SPECIFIC GRAVITY 1.025; URINE UROBILINOGEN - DIPSTICK 0.2 E.U./dL (0.2)
[2021-06-26] MEDS ORDERED: JANUVIA100 MG PO (17:07)
[2021-06-26] MEDS ORDERED: CYCLOBENZAPRINE10 MG PO (17:07)
[2021-06-26] MEDS ORDERED: FERROUS SULF325 M2 PO (17:07)
[2021-06-26] MEDS ORDERED: POTASSIUM CHLO10 MEQ PO (17:08)
[2021-06-26] MEDS ORDERED: ZESTRIL10 M1 PO (17:08)
[2021-06-26 17:10] LABS: URINE NITRITE - DIPSTICK NEGATIVE (Negative)
[2021-06-26 17:18] LABS: URINE SQUAMOUS EPITHELIAL CELL FEW EPI/hpf (0-FEW); URINE WBC 0-2 WBC/hpf (0-5)
[2021-06-26 17:36] LABS: ALBUMIN 3.8 g/dL (3.2-5.0); CREATININE 1.9 mg/dL (0.5-1.0); POTASSIUM 4.9 mmol/l (3.5-5.1); TOTAL PROTEIN 7.6 g/dL (6.3-8.2)
[2021-06-26 17:46] LABS: BILIRUBIN, TOTAL 0.4 mg/dL (0.0-1.4)
[2021-06-26] MEDS ORDERED: ONDANSETRON4 MG PO (20:13)
[2021-06-26] MEDS ORDERED: METRONIDAZOLE500 MG PO (20:13)
[2021-06-26] MEDS ORDERED: ULTRAM50 M1 PO (20:13)
[2021-06-26] MEDS ORDERED: CIPROFLOXACN500 MG PO (20:13)
== END 2021-06-26 21:13 | disposition home or self-care (01) ==
LOC: ED 14:57
PROVIDERS: Nurse Practitioner
DX: K57.32 Diverticulitis of large intestine without perforation or abscess without bleeding (principal); I10 Essential (primary) hypertension; E11.9 Type 2 diabetes mellitus without complications; E03.9 Hypothyroidism, unspecified; Z90.5 Acquired absence of kidney; Z79.84 Long term (current) use of oral hypoglycemic drugs; Z79.4 Long term (current) use of insulin

== ENCOUNTER 2021-09-11 23:24 | Observation (INO) | payer MEDICAID ==
[~2021-09-11] VITALS: Ht 160 cm; Wt 121.0 kg
[~2021-09-11 23:24] MED LIST changes: +CYCLOBENZAPRINE10 MG PO; +FERROUS SULF325 M2 PO; +JANUVIA100 MG PO; -LEVOTHYROXIN50 MC1 PO; +LEVOTHYROXIN75 MC1 PO; +METRONIDAZOLE500 MG PO; +ONDANSETRON4 MG PO; +POTASSIUM CHLO10 MEQ PO; +ULTRAM50 M1 PO; +ZESTRIL10 M1 PO
[2021-09-11 23:34] VITALS: BP 181/96
[2021-09-12] VITALS (19 sets, daily range): BP systolic 123–180; BP diastolic 69–105
[2021-09-12 00:02] LABS: HEMATOCRIT 27.3 % (37.0-47.0); HEMOGLOBIN 8.3 g/dl (12.0-16.0); IMMATURE GRANULOCYTES 0.3 % (0.0-5.0); MEAN CELL VOLUME 87.5 fL CALC (80.0-100.0); MEAN CORPUSCULAR HGB 26.6 pG CALC (26.0-32.0); MEAN CORPUSCULAR HGB CONC 30.4 g/dL CAL (32.0-36.0); NEUT# 7.49 thou/uL (2.00-7.15); RED BLOOD COUNT 3.12 mill/uL (4.20-5.60); RED CELL DISTRI WIDTH 15.3 % (11.5-15.5)
[2021-09-12 00:33] LABS: ALBUMIN 3.7 g/dL (3.2-5.0); ALKALINE PHOSPHATASE 121 u/l (38-126); BILIRUBIN, TOTAL 0.3 mg/dL (0.0-1.4); CARBON DIOXIDE 30 mmol/l (22-30); CHLORIDE 100 mmol/l (95-108); SGOT/AST 16 u/l (14-36); SODIUM 136 mmol/l (137-146); TOTAL PROTEIN 7.8 g/dL (6.3-8.2)
[2021-09-12 00:42] LABS: ANION GAP 11 (6-22 (CALC)); BUN 98 mg/dL (7-17); BUN/CREATININE RATIO 34 (12-20 (CALC)); CREATININE 2.9 mg/dL (0.5-1.0); GFR FOR AFR.AMER. 21 ML/MIN (>=60 (CALC)); GFR OTHER RACES 17 ML/MIN (>=60 (CALC)); POTASSIUM 5.2 mmol/l (3.5-5.1)
[2021-09-12 00:44] LABS: MYOGLOBIN 94 ng/mL (0 - 62)
[2021-09-12 07:29] LABS: ALBUMIN 3.7 g/dL (3.2-5.0); CREATININE 2.9 mg/dL (0.5-1.0)
[2021-09-12 07:33] LABS: POTASSIUM 5.3 mmol/l (3.5-5.1)
[2021-09-12] MEDS ORDERED: PIOGLITAZONE HC30 MG PO (11:54)
[2021-09-12] MEDS ORDERED: VITAMIN D1.25 MG PO (11:54)
[2021-09-12] MEDS ORDERED: LASIX 40 MG TAB40 MG PO (11:55)
[2021-09-12] MEDS ORDERED: NEURONTIN600 MG PO (11:55)
[2021-09-12 13:24] LABS: HEMATOCRIT 26.6 % (37.0-47.0); IMMATURE GRANULOCYTES 0.1 % (0.0-5.0); MEAN CELL VOLUME 88.4 fL CALC (80.0-100.0); MEAN CORPUSCULAR HGB 26.6 pG CALC (26.0-32.0); MEAN CORPUSCULAR HGB CONC 30.1 g/dL CAL (32.0-36.0); NEUT# 5.51 thou/uL (2.00-7.15); RED BLOOD COUNT 3.01 mill/uL (4.20-5.60); RED CELL DISTRI WIDTH 15.2 % (11.5-15.5)
[2021-09-12 13:35] LABS: CREATININE 2.1 mg/dL (0.5-1.0); MAGNESIUM 2.3 mg/dL (1.6-2.3); POTASSIUM 4.9 mmol/l (3.5-5.1)
[2021-09-13] VITALS (9 sets, daily range): BP systolic 147–193; BP diastolic 70–96
[2021-09-13 06:38] LABS: HEMATOCRIT 24.8 % (37.0-47.0); HEMOGLOBIN 7.4 g/dl (12.0-16.0); IMMATURE GRANULOCYTES 0.1 % (0.0-5.0); MEAN CELL VOLUME 89.2 fL CALC (80.0-100.0); MEAN CORPUSCULAR HGB 26.6 pG CALC (26.0-32.0); MEAN CORPUSCULAR HGB CONC 29.8 g/dL CAL (32.0-36.0); NEUT# 5.97 thou/uL (2.00-7.15); RED BLOOD COUNT 2.78 mill/uL (4.20-5.60); RED CELL DISTRI WIDTH 15.5 % (11.5-15.5)
[2021-09-13 07:00] LABS: CREATININE 1.6 mg/dL (0.5-1.0); MAGNESIUM 2.4 mg/dL (1.6-2.3); POTASSIUM 4.4 mmol/l (3.5-5.1)
[2021-09-13 07:06] LABS: ALBUMIN 2.8 g/dL (3.2-5.0)
[2021-09-13 11:06] LABS: URINE BILIRUBIN - DIPSTICK NEGATIVE (NEGATIVE); URINE BLOOD DIPSTICK TRACE-INTACT (NEGATIVE); URINE COLOR YELLOW; URINE GLUCOSE - DIPSTICK NEGATIVE (NEGATIVE); URINE KETONE NEGATIVE (NEGATIVE); URINE LEUK ESTERASE TRACE (NEGATIVE); URINE PROTEIN - DIPSTICK 100 mg/dL (NEG-TRACE); URINE UROBILINOGEN - DIPSTICK 0.2 E.U./dL (0.2)
[2021-09-13 11:09] LABS: URINE NITRITE - DIPSTICK NEGATIVE (Negative)
[2021-09-13 11:10] LABS: URINE EPITHELIAL CELLS MODERATE EPI/hpf (0-FEW); URINE MUCUS FEW hpf (NONE-FEW); URINE RBC 0-2 RBC/hpf (0-5); URINE WBC 0-2 WBC/hpf (0-5)
[2021-09-14] VITALS (7 sets, daily range): BP systolic 146–186; BP diastolic 63–93
[2021-09-14 05:41] LABS: HEMATOCRIT 25.4 % (37.0-47.0); HEMOGLOBIN 7.6 g/dl (12.0-16.0); IMMATURE GRANULOCYTES 0.2 % (0.0-5.0); MEAN CELL VOLUME 89.1 fL CALC (80.0-100.0); MEAN CORPUSCULAR HGB 26.7 pG CALC (26.0-32.0); MEAN CORPUSCULAR HGB CONC 29.9 g/dL CAL (32.0-36.0); NEUT# 6.05 thou/uL (2.00-7.15); RED BLOOD COUNT 2.85 mill/uL (4.20-5.60); RED CELL DISTRI WIDTH 15.5 % (11.5-15.5)
[2021-09-14 05:59] LABS: ALBUMIN 2.9 g/dL (3.2-5.0); CREATININE 1.4 mg/dL (0.5-1.0); MAGNESIUM 2.3 mg/dL (1.6-2.3); TOTAL PROTEIN 6.3 g/dL (6.3-8.2)
[2021-09-14 06:00] LABS: BILIRUBIN, TOTAL 0.1 mg/dL (0.0-1.4)
[2021-09-14] MEDS ORDERED: NEURONTIN600 MG PO (09:00)
[2021-09-14] MEDS ORDERED: JANUVIA100 MG PO (09:01)
[2021-09-14] MEDS ORDERED: FERROUS SULF325 M2 PO (09:02)
[2021-09-14] MEDS ORDERED: AMLODIPINE BESYL5 MG PO (10:12)
[2021-09-14] MEDS ORDERED: LASIX 20 MG TAB20 MG PO (12:16)
== END 2021-09-14 13:25 | disposition home or self-care (01) ==
LOC: ED 23:24 → ED-I 09-12 01:00 → ED 09-12 01:19 → ED-I 09-12 01:20 → MS2 09-12 11:39
PROVIDERS: Emergency Medicine; Nurse Practitioner; ADMIT Internal Medicine; ATTEND Internal Medicine
DX: I12.9 Hypertensive chronic kidney disease with stage 1 through stage 4 chronic kidney disease, or unspecified chronic kidney disease (principal); E11.22 Type 2 diabetes mellitus with diabetic chronic kidney disease; N18.4 Chronic kidney disease, stage 4 (severe); E86.0 Dehydration; E86.9 Volume depletion, unspecified; E87.5 Hyperkalemia; E87.1 Hypo-osmolality and hyponatremia; R10.11 Right upper quadrant pain; D63.1 Anemia in chronic kidney disease; E03.9 Hypothyroidism, unspecified; E78.5 Hyperlipidemia, unspecified; E83.39 Other disorders of phosphorus metabolism; T50.2X5A Adverse effect of carbonic-anhydrase inhibitors, benzothiadiazides and other diuretics, initial encounter; E66.01 Morbid (severe) obesity due to excess calories; Z68.42 Body mass index [BMI] 45.0-49.9, adult; Z90.5 Acquired absence of kidney; Z87.442 Personal history of urinary calculi; Z87.440 Personal history of urinary (tract) infections; Z79.84 Long term (current) use of oral hypoglycemic drugs; Z79.4 Long term (current) use of insulin; Z20.822 Contact with and (suspected) exposure to COVID-19
CPT/HCPCS: G0378; J1756

== ENCOUNTER 2021-10-12 18:47 | Emergency (ER) | payer MEDICAID ==
[~2021-10-12] VITALS: Ht 160 cm; Wt 130.0 kg
[~2021-10-12 18:47] MED LIST changes: +AMLODIPINE BESYL5 MG PO; +LASIX 20 MG TAB20 MG PO; +LASIX 40 MG TAB40 MG PO; +NEURONTIN600 MG PO; +PIOGLITAZONE HC30 MG PO; +VITAMIN D1.25 MG PO
[2021-10-12 19:02] VITALS: BP 140/64
[2021-10-12 19:17] VITALS: BP 138/71
[2021-10-12 19:45] LABS: HEMOGLOBIN 10.1 g/dl (12.0-16.0); IMMATURE GRANULOCYTES 0.1 % (0.0-5.0); MEAN CELL VOLUME 86.2 fL CALC (80.0-100.0); MEAN CORPUSCULAR HGB 26.7 pG CALC (26.0-32.0); NEUT# 9.37 thou/uL (2.00-7.15); RED BLOOD COUNT 3.78 mill/uL (4.20-5.60); RED CELL DISTRI WIDTH 16.3 % (11.5-15.5)
[2021-10-12 19:48] LABS: HEMATOCRIT 32.6 % (37.0-47.0)
[2021-10-12 19:56] LABS: ALKALINE PHOSPHATASE 100 u/l (38-126); AMYLASE 99 u/l (30-110); ANION GAP 13 (6-22 (CALC)); CARBON DIOXIDE 26 mmol/l (22-30); CHLORIDE 106 mmol/l (95-108); LIPASE 190 u/l (23-300); POTASSIUM 4.6 mmol/l (3.5-5.1); SGOT/AST 20 u/l (14-36); SODIUM 141 mmol/l (137-146)
[2021-10-12 20:07] LABS: MYOGLOBIN 178 ng/mL (0 - 62)
[2021-10-12 20:10] LABS: BILIRUBIN, TOTAL 0.2 mg/dL (0.0-1.4); BUN 80 mg/dL (7-17); BUN/CREATININE RATIO 27 (12-20 (CALC)); GFR FOR AFR.AMER. 20 ML/MIN (>=60 (CALC)); GFR OTHER RACES 17 ML/MIN (>=60 (CALC)); TOTAL PROTEIN 8.3 g/dL (6.3-8.2)
[2021-10-12 20:13] LABS: URINE BILIRUBIN - DIPSTICK NEGATIVE (NEGATIVE); URINE BLOOD DIPSTICK TRACE-INTACT (NEGATIVE); URINE COLOR YELLOW; URINE GLUCOSE - DIPSTICK NEGATIVE (NEGATIVE); URINE KETONE NEGATIVE (NEGATIVE); URINE PROTEIN - DIPSTICK 100 mg/dL (NEG-TRACE); URINE SPECIFIC GRAVITY >=1.030; URINE UROBILINOGEN - DIPSTICK 0.2 E.U./dL (0.2)
[2021-10-12 20:30] LABS: URINE LEUK ESTERASE SMALL (NEGATIVE); URINE NITRITE - DIPSTICK NEGATIVE (Negative)
[2021-10-12 20:37] LABS: ACT PARTIAL THROMBO TIME 28.1 SECONDS (20.0-32.5); PROTHROMBIN TIME 10.2 SECONDS (9.0-12.5)
[2021-10-12 20:46] LABS: URINE SQUAMOUS EPITHELIAL CELL FEW EPI/hpf (0-FEW)
[2021-10-12 22:43] LABS: D-DIMER 0.49 mg/L (0.19-0.60)
[2021-10-12] MEDS ORDERED: BACTRIM DS1 TAB PO (22:59)
[2021-10-12] MEDS ORDERED: TORADOL PO (23:01)
[2021-10-12 23:08] VITALS: BP 138/71
== END 2021-10-12 23:29 | disposition home or self-care (01) | DRG 313 ==
LOC: ED 18:47
PROVIDERS: Family Medicine
DX: R07.89 Other chest pain (principal); N39.0 Urinary tract infection, site not specified; N17.9 Acute kidney failure, unspecified; I12.9 Hypertensive chronic kidney disease with stage 1 through stage 4 chronic kidney disease, or unspecified chronic kidney disease; E11.22 Type 2 diabetes mellitus with diabetic chronic kidney disease; N18.9 Chronic kidney disease, unspecified; Z79.4 Long term (current) use of insulin; Z20.822 Contact with and (suspected) exposure to COVID-19

== ENCOUNTER 2022-01-24 20:40 | Observation (INO) | payer MEDICAID ==
[~2022-01-24] VITALS: Ht 160 cm; Wt 124.0 kg
[~2022-01-24 20:40] MED LIST changes: +BACTRIM DS1 TAB PO; +TORADOL PO
[2022-01-24 21:34] LABS: HEMATOCRIT 29.3 % (37.0-47.0); HEMOGLOBIN 8.8 g/dl (12.0-16.0); IMMATURE GRANULOCYTES 0.2 % (0.0-5.0); MEAN CELL VOLUME 89.9 fL CALC (80.0-100.0); NEUT# 9.42 thou/uL (2.00-7.15); RED BLOOD COUNT 3.26 mill/uL (4.20-5.60); RED CELL DISTRI WIDTH 16.8 % (11.5-15.5)
[2022-01-24 21:51] LABS: ALBUMIN 3.7 g/dL (3.2-5.0); ALKALINE PHOSPHATASE 114 u/l (38-126); ANION GAP 12 (6-22 (CALC)); CARBON DIOXIDE 28 mmol/l (22-30); CHLORIDE 103 mmol/l (95-108); CREATININE 2.8 mg/dL (0.5-1.0); GFR FOR AFR.AMER. 22 ML/MIN (>=60 (CALC)); GFR OTHER RACES 18 ML/MIN (>=60 (CALC)); POTASSIUM 4.6 mmol/l (3.5-5.1); SGOT/AST 20 u/l (14-36); SODIUM 139 mmol/l (137-146); TOTAL PROTEIN 7.7 g/dL (6.3-8.2)
[2022-01-24 21:53] LABS: BILIRUBIN, TOTAL 0.3 mg/dL (0.0-1.4); BUN 80 mg/dL (7-17); BUN/CREATININE RATIO 29 (12-20 (CALC))
[2022-01-24 22:02] LABS: MYOGLOBIN 69 ng/mL (0 - 62)
[2022-01-24 22:36] VITALS: BP 145/83
[2022-01-24] MEDS ORDERED: FARXIGA10 MG PO (22:40)
[2022-01-24] MEDS ORDERED: FUROSEMIDE20 MG PO (22:42)
[2022-01-24] MEDS ORDERED: GABAPENTIN100 MG PO (22:43)
[2022-01-24 22:45] VITALS: BP 131/76
[2022-01-24] MEDS ORDERED: OMEPRAZOLE20 M4 PO (22:46)
[2022-01-24] MEDS ORDERED: LANTUS100 UNIT SC (22:50)
[2022-01-24 23:00] VITALS: BP 122/70
[2022-01-24 23:15] VITALS: BP 129/72
[2022-01-24 23:30] VITALS: BP 144/79
[2022-01-24 23:45] VITALS: BP 147/81
[2022-01-25] VITALS (17 sets, daily range): BP systolic 111–156; BP diastolic 42–90
[2022-01-25 09:24] LABS: ALBUMIN 3.6 g/dL (3.2-5.0); POTASSIUM 4.6 mmol/l (3.5-5.1)
== END 2022-01-25 17:30 | disposition home or self-care (01) ==
LOC: ED 20:40 → ED-I 21:34 → ED 23:21 → MS2 23:22
PROVIDERS: Emergency Medicine; Internal Medicine Nephrology; ADMIT Internal Medicine; ATTEND Internal Medicine
DX: R07.9 Chest pain, unspecified (principal); N17.9 Acute kidney failure, unspecified; E11.22 Type 2 diabetes mellitus with diabetic chronic kidney disease; I12.9 Hypertensive chronic kidney disease with stage 1 through stage 4 chronic kidney disease, or unspecified chronic kidney disease; N18.30 Chronic kidney disease, stage 3 unspecified; D63.1 Anemia in chronic kidney disease; E11.65 Type 2 diabetes mellitus with hyperglycemia; E86.9 Volume depletion, unspecified; E03.9 Hypothyroidism, unspecified; E78.5 Hyperlipidemia, unspecified; E66.01 Morbid (severe) obesity due to excess calories; Z87.442 Personal history of urinary calculi; Z90.5 Acquired absence of kidney; Z79.4 Long term (current) use of insulin; Z20.822 Contact with and (suspected) exposure to COVID-19
CPT/HCPCS: G0378

== ENCOUNTER 2022-02-22 18:30 | Emergency (ER) | payer MEDICAID ==
[~2022-02-22] VITALS: Ht 160 cm; Wt 125.0 kg
[~2022-02-22 18:30] MED LIST changes: +FARXIGA10 MG PO; +FUROSEMIDE20 MG PO; +LANTUS100 UNIT SC; +OMEPRAZOLE20 M4 PO
[2022-02-22] MEDS ORDERED: GABAPENTIN600 MG PO (20:12)
[2022-02-22] MEDS ORDERED: NORVASC10 M1 PO (20:14)
[2022-02-22 20:15] LABS: HEMATOCRIT 27.7 % (37.0-47.0); HEMOGLOBIN 8.5 g/dl (12.0-16.0); IMMATURE GRANULOCYTES 0.3 % (0.0-5.0); MEAN CELL VOLUME 89.4 fL CALC (80.0-100.0); MEAN CORPUSCULAR HGB 27.4 pG CALC (26.0-32.0); MEAN CORPUSCULAR HGB CONC 30.7 g/dL CAL (32.0-36.0); NEUT# 7.66 thou/uL (2.00-7.15); RED BLOOD COUNT 3.1 mill/uL (4.20-5.60); RED CELL DISTRI WIDTH 16.7 % (11.5-15.5)
[2022-02-22 20:26] LABS: ALBUMIN 3.9 g/dL (3.2-5.0); BILIRUBIN, TOTAL 0.2 mg/dL (0.0-1.4); POTASSIUM 4.1 mmol/l (3.5-5.1)
[2022-02-22 20:27] LABS: URINE BILIRUBIN - DIPSTICK NEGATIVE (NEGATIVE); URINE BLOOD DIPSTICK SMALL (NEGATIVE); URINE COLOR YELLOW; URINE GLUCOSE - DIPSTICK 100 mg/dL (NEGATIVE); URINE KETONE NEGATIVE (NEGATIVE); URINE LEUK ESTERASE NEGATIVE (NEGATIVE); URINE PH 6.5 (4.5-8.0); URINE PROTEIN - DIPSTICK >=300 mg/dL (NEG-TRACE); URINE SPECIFIC GRAVITY 1.025; URINE UROBILINOGEN - DIPSTICK 0.2 E.U./dL (0.2)
[2022-02-22 20:29] LABS: URINE NITRITE - DIPSTICK NEGATIVE (Negative)
[2022-02-22 20:37] LABS: URINE SQUAMOUS EPITHELIAL CELL FEW EPI/hpf (0-FEW); URINE YEAST FEW hpf
[2022-02-22] MEDS ORDERED: KEFLEX500 MG PO (22:26)
[2022-02-22 23:00] VITALS: BP 117/51
== END 2022-02-22 23:05 | disposition home or self-care (01) ==
LOC: ED 18:30
PROVIDERS: Emergency Medicine
DX: E11.22 Type 2 diabetes mellitus with diabetic chronic kidney disease (principal); I12.9 Hypertensive chronic kidney disease with stage 1 through stage 4 chronic kidney disease, or unspecified chronic kidney disease; N18.9 Chronic kidney disease, unspecified; N39.0 Urinary tract infection, site not specified

== ENCOUNTER 2022-02-28 18:39 | Observation (INO) | payer MEDICAID ==
[~2022-02-28] VITALS: Ht 160 cm; Wt 122.2 kg
[~2022-02-28 18:39] MED LIST changes: +GABAPENTIN600 MG PO; +KEFLEX500 MG PO; +NORVASC10 M1 PO
[2022-02-28 19:52] LABS: HEMATOCRIT 28.3 % (37.0-47.0); HEMOGLOBIN 8.5 g/dl (12.0-16.0); IMMATURE GRANULOCYTES 0.2 % (0.0-5.0); MEAN CORPUSCULAR HGB 26.7 pG CALC (26.0-32.0); NEUT# 9.44 thou/uL (2.00-7.15); RED BLOOD COUNT 3.18 mill/uL (4.20-5.60); RED CELL DISTRI WIDTH 16.1 % (11.5-15.5)
[2022-02-28 20:08] LABS: ALBUMIN 3.9 g/dL (3.2-5.0); ALKALINE PHOSPHATASE 137 u/l (38-126); ANION GAP 12 (6-22 (CALC)); BUN 65 mg/dL (7-17); BUN/CREATININE RATIO 29 (12-20 (CALC)); CARBON DIOXIDE 31 mmol/l (22-30); CHLORIDE 103 mmol/l (95-108); CREATININE 2.3 mg/dL (0.5-1.0); GFR FOR AFR.AMER. 27 ML/MIN (>=60 (CALC)); GFR OTHER RACES 23 ML/MIN (>=60 (CALC)); LIPASE 160 u/l (23-300); POTASSIUM 4.2 mmol/l (3.5-5.1); SGOT/AST 22 u/l (14-36); SODIUM 141 mmol/l (137-146); TOTAL PROTEIN 8.1 g/dL (6.3-8.2)
[2022-02-28 20:12] LABS: PROTHROMBIN TIME 9.7 SECONDS (9.0-12.5)
[2022-02-28 20:20] LABS: BILIRUBIN, TOTAL 0.4 mg/dL (0.0-1.4)
[2022-02-28 22:06] VITALS: BP 129/68
[2022-02-28 23:41] VITALS: BP 125/66
[2022-03-01 05:04] VITALS: BP 126/68
[2022-03-01 05:53] LABS: HEMATOCRIT 28.7 % (37.0-47.0); HEMOGLOBIN 8.9 g/dl (12.0-16.0); IMMATURE GRANULOCYTES 0.4 % (0.0-5.0); MEAN CELL VOLUME 89.1 fL CALC (80.0-100.0); MEAN CORPUSCULAR HGB 27.6 pG CALC (26.0-32.0); NEUT# 6.58 thou/uL (2.00-7.15); RED BLOOD COUNT 3.22 mill/uL (4.20-5.60); RED CELL DISTRI WIDTH 16.1 % (11.5-15.5)
[2022-03-01 06:04] LABS: ALBUMIN 3.4 g/dL (3.2-5.0); BILIRUBIN, TOTAL 0.3 mg/dL (0.0-1.4); CREATININE 2.2 mg/dL (0.5-1.0); MAGNESIUM 2.6 mg/dL (1.6-2.3); TOTAL PROTEIN 6.8 g/dL (6.3-8.2)
[2022-03-01 06:48] VITALS: BP 127/59
[2022-03-01 11:01] VITALS: BP 149/84
[2022-03-01 14:40] VITALS: BP 155/73
[2022-03-01] MEDS ORDERED: OMEPRAZOLE DR40 MG PO (15:42)
[2022-03-01 19:07] VITALS: BP 152/89
[2022-03-01 23:54] VITALS: BP 140/68
[2022-03-02 04:33] VITALS: BP 129/72
[2022-03-02 05:56] LABS: HEMOGLOBIN 9.1 g/dl (12.0-16.0); MEAN CELL VOLUME 88.1 fL CALC (80.0-100.0); MEAN CORPUSCULAR HGB 27.7 pG CALC (26.0-32.0); MEAN CORPUSCULAR HGB CONC 31.4 g/dL CAL (32.0-36.0); RED BLOOD COUNT 3.29 mill/uL (4.20-5.60)
[2022-03-02 06:07] LABS: ALBUMIN 3.6 g/dL (3.2-5.0); CREATININE 2.4 mg/dL (0.5-1.0); MAGNESIUM 2.6 mg/dL (1.6-2.3); POTASSIUM 4.1 mmol/l (3.5-5.1)
[2022-03-02 06:55] VITALS: BP 123/53
[2022-03-02 10:55] VITALS: BP 123/95
== END 2022-03-02 17:45 | disposition home or self-care (01) ==
LOC: ED 18:39 → ED-I 20:28 → ED 20:42 → MS2 20:43
PROVIDERS: Internal Medicine Nephrology; Nurse Practitioner; Nurse Practitioner Family; ADMIT Internal Medicine; ATTEND Internal Medicine
DX: R07.9 Chest pain, unspecified (principal); N17.9 Acute kidney failure, unspecified; E86.9 Volume depletion, unspecified; R60.1 Generalized edema; I12.9 Hypertensive chronic kidney disease with stage 1 through stage 4 chronic kidney disease, or unspecified chronic kidney disease; E11.22 Type 2 diabetes mellitus with diabetic chronic kidney disease; N18.4 Chronic kidney disease, stage 4 (severe); D63.1 Anemia in chronic kidney disease; E03.9 Hypothyroidism, unspecified; E78.5 Hyperlipidemia, unspecified; E66.01 Morbid (severe) obesity due to excess calories; Z79.4 Long term (current) use of insulin; Z87.442 Personal history of urinary calculi; Z90.5 Acquired absence of kidney; Z23 Encounter for immunization
CPT/HCPCS: G0378; Q5106 EC

== ENCOUNTER 2022-03-12 11:25 | Emergency (ER) | payer MEDICAID ==
[~2022-03-12] VITALS: Ht 160 cm; Wt 140.0 kg
[2022-03-12] VITALS (44 sets, daily range): BP systolic 87–156; BP diastolic 53–108
[~2022-03-12 11:25] MED LIST changes: +OMEPRAZOLE DR40 MG PO
[2022-03-12 12:38] LABS: HEMATOCRIT 32.7 % (37.0-47.0); HEMOGLOBIN 10.5 g/dl (12.0-16.0); IMMATURE GRANULOCYTES 0.3 % (0.0-5.0); MEAN CELL VOLUME 84.5 fL CALC (80.0-100.0); MEAN CORPUSCULAR HGB 27.1 pG CALC (26.0-32.0); MEAN CORPUSCULAR HGB CONC 32.1 g/dL CAL (32.0-36.0); NEUT# 10.9 thou/uL (2.00-7.15); RED BLOOD COUNT 3.87 mill/uL (4.20-5.60); RED CELL DISTRI WIDTH 15.6 % (11.5-15.5)
[2022-03-12 12:44] LABS: GFR FOR AFR.AMER. 15 ML/MIN (>=60 (CALC)); GFR OTHER RACES 13 ML/MIN (>=60 (CALC))
[2022-03-12 12:46] LABS: PROTHROMBIN TIME 10.1 SECONDS (9.0-12.5)
[2022-03-12 12:50] LABS: ALBUMIN 4.3 g/dL (3.2-5.0); CREATININE 3.3 mg/dL (0.5-1.0)
[2022-03-12 13:06] LABS: BILIRUBIN, TOTAL 0.5 mg/dL (0.0-1.4); POTASSIUM 2.7 mmol/l (3.5-5.1); TOTAL PROTEIN 8.7 g/dL (6.3-8.2)
[2022-03-12] MEDS ORDERED: METOLAZONE5 MG PO (14:03)
[2022-03-12] MEDS ORDERED: CEPHALEXIN500 MG PO (14:04)
[2022-03-12] MEDS ORDERED: PIOGLITAZONE HC30 MG (14:05)
[2022-03-12] MEDS ORDERED: FARXIGA10 MG (14:07)
[2022-03-12 16:15] LABS: URINE BILIRUBIN - DIPSTICK NEGATIVE (NEGATIVE); URINE BLOOD DIPSTICK SMALL (NEGATIVE); URINE COLOR YELLOW; URINE GLUCOSE - DIPSTICK >=1000 mg/dL (NEGATIVE); URINE KETONE NEGATIVE (NEGATIVE); URINE LEUK ESTERASE NEGATIVE (NEGATIVE); URINE PH 6.5 (4.5-8.0); URINE PROTEIN - DIPSTICK 100 mg/dL (NEG-TRACE); URINE UROBILINOGEN - DIPSTICK 0.2 E.U./dL (0.2)
[2022-03-12 16:17] LABS: URINE NITRITE - DIPSTICK NEGATIVE (Negative)
[2022-03-12 16:25] LABS: URINE RBC 0-2 RBC/hpf (0-5)
[2022-03-12 19:06] LABS: CREATININE 3.1 mg/dL (0.5-1.0); POTASSIUM 3.2 mmol/l (3.5-5.1)
== END 2022-03-12 20:59 | disposition short-term general hospital (02) ==
LOC: ED 11:25 → ED-I 12:32 → ED 12:32 → ED-I 15:00 → ED 20:59
PROVIDERS: Family Medicine
DX: N17.9 Acute kidney failure, unspecified (principal); E87.6 Hypokalemia; I12.9 Hypertensive chronic kidney disease with stage 1 through stage 4 chronic kidney disease, or unspecified chronic kidney disease; E11.22 Type 2 diabetes mellitus with diabetic chronic kidney disease; N18.9 Chronic kidney disease, unspecified; E11.65 Type 2 diabetes mellitus with hyperglycemia; E03.9 Hypothyroidism, unspecified; E78.5 Hyperlipidemia, unspecified; E66.01 Morbid (severe) obesity due to excess calories; Z79.4 Long term (current) use of insulin
CPT/HCPCS: J3475

== ENCOUNTER 2022-05-05 12:54 | Observation (INO) | payer MEDICAID ==
[~2022-05-05] VITALS: Ht 160 cm; Wt 118.2 kg
[2022-05-05] VITALS (12 sets, daily range): BP systolic 97–152; BP diastolic 58–79
[~2022-05-05 12:54] MED LIST changes: +CEPHALEXIN500 MG PO; +METOLAZONE5 MG PO; +PIOGLITAZONE HC30 MG
--- NOTE | 2022-05-05 12:55 | NUR ---
PT TO ROOM W/STEADY GAIT.
[2022-05-05 13:28] LABS: BASO% 0.4 % (0-3); EOS% 1.8 % (0-8); HEMATOCRIT 32.8 % (37.0-47.0); HEMOGLOBIN 10.1 g/dl (12.0-16.0); IMMATURE GRANULOCYTES 0.2 % (0.0-5.0); MEAN CELL VOLUME 85.2 fL CALC (80.0-100.0); MEAN CORPUSCULAR HGB 26.2 pG CALC (26.0-32.0); MEAN CORPUSCULAR HGB CONC 30.8 g/dL CAL (32.0-36.0); MONO% 3.1 % (2-13); NEUT# 9.38 thou/uL (2.00-7.15); NEUT% 74.5 % (42-76); RED BLOOD COUNT 3.85 mill/uL (4.20-5.60); RED CELL DISTRI WIDTH 16.4 % (11.5-15.5)
[2022-05-05 13:40] LABS: ALBUMIN 4.1 g/dL (3.2-5.0); ALKALINE PHOSPHATASE 161 u/l (38-126); BILIRUBIN, TOTAL 0.4 mg/dL (0.02-1.3); CHLORIDE 80 mmol/l (95-108); CREATININE 3.6 mg/dL (0.5-1.0); GFR FOR AFR.AMER. 16 ML/MIN (>=60 (CALC)); GFR OTHER RACES 13 ML/MIN (>=60 (CALC)); POTASSIUM 2.6 mmol/l (3.5-5.1); SGOT/AST 19 u/l (14-36); SODIUM 131 mmol/l (137-146); TOTAL PROTEIN 8.8 g/dL (6.3-8.2)
[2022-05-05 13:46] LABS: ANION GAP 13 (6-22 (CALC))
[2022-05-05 13:55] LABS: BUN/CREATININE RATIO 32 (12-20 (CALC))
[2022-05-05 13:56] LABS: BUN 114 mg/dL (7-17); CARBON DIOXIDE 41 mmol/l (22-30)
--- NOTE | 2022-05-05 15:42 | NUR ---
IN ROOM TO SPEAK TO PT
[2022-05-05] MEDS ORDERED: FUROSEMIDE20 MG PO ×2 (16:11→16:13)
[2022-05-05] MEDS ORDERED: ALLOPURINOL100 MG PO (16:15)
--- NOTE | 2022-05-05 16:48 | NUR ---
Admission Note Report Given to: LUCHO PETERSEN Transported by: Wheelchair X Stretcher Transported with: X Nurse Transporter X Patent IV O2 X Batting Machine Operator Insulation Location: ICU X MS2 TO ROOM 262
--- NOTE | 2022-05-05 20:15 | NUR ---
PATIENT RESTING IN BED AT THIS TIME. PATIENT DENIES ANY CHEST PAIN AT THIS TIME. EQUINE INTERN DONE SEE INTERVENTIONS. PATIENT ALERT AND ORIENTED X 3 PATIENT TELE READING SINUS RHYTHM AT THIS TIME AND HR OF 79 SIDERAILS ARE UP CALL LIGHT WITHIN REACH
[2022-05-06] VITALS: BP 97/58
--- NOTE | 2022-05-06 00:15 | NUR ---
PATIENT RESTING IN BED AT THIS TIME. TELE MONITOR IN PLACE READING SR AT 89. DENEIS ANY NEEDS AND OR PAIN SIDERAILS ARE UP CALL LIGHT IS WITHIN REACH WILL CONTINUE TO MONITOR.
--- NOTE | 2022-05-06 00:57 | NUR ---
PATIENT C/O PAIN IN UPPER LEFT SHOULDER AT THIS TIME PATIENT STATES PAIN IS A 4 OUT 0F 0-10 PAIN SCALE. 650 MG OF TYLENOL PO GIVEN AT THIS TIME.
[2022-05-06 04:00] VITALS: BP 121/72
--- NOTE | 2022-05-06 04:00 | NUR ---
PATIENT RESTING IN BED AT THIS TIME DENIES ANY PAIN CURRENTLY SIDERAILS ARE UP X 2 CALL LIGHT NEAR. PATIENT TELE READING SINUS RHTHYM AT 76 AND MONIOTORED BY ED.
[2022-05-06 04:32] VITALS: BP 121/72
[2022-05-06 06:34] VITALS: BP 131/74
--- NOTE | 2022-05-06 09:48 | NUR ---
PT SEEN AWAKE, ALERT, ORIENTED X 3, SITTING UP IN CHAIR AT BEDSIDE. PT HAS PAIN TO LEFT MIDBACK. NO REPORT OF CHEST PAIN OR SHORTNESS OF BREATH.
[2022-05-06 09:49] LABS: BASO% 0.5 % (0-3); EOS% 3.7 % (0-8); HEMATOCRIT 31.4 % (37.0-47.0); HEMOGLOBIN 9.7 g/dl (12.0-16.0); IMMATURE GRANULOCYTES 0.2 % (0.0-5.0); LYMPH% 19.5 % (15-41); MEAN CELL VOLUME 86.7 fL CALC (80.0-100.0); MEAN CORPUSCULAR HGB 26.8 pG CALC (26.0-32.0); MEAN CORPUSCULAR HGB CONC 30.9 g/dL CAL (32.0-36.0); MONO% 3.4 % (2-13); NEUT# 8.95 thou/uL (2.00-7.15); NEUT% 72.7 % (42-76); RED BLOOD COUNT 3.62 mill/uL (4.20-5.60); RED CELL DISTRI WIDTH 16.4 % (11.5-15.5)
[2022-05-06 10:05] LABS: CREATININE 2.8 mg/dL (0.5-1.0); POTASSIUM 2.8 mmol/l (3.5-5.1)
--- NOTE | 2022-05-06 10:10 | NUR ---
The patient is screened for PT intervention and no needs are identified at this time
--- NOTE | 2022-05-06 12:13 | NUR ---
PT SEEN BY DR PARKS THIS MORNING, NO SIGNIFICANT CHANGES TO PLAN OF CARE. PT IS AMBULATORY IN ROOM, ABLE TO MANEUVER IV POLE WELL.
[2022-05-06 14:52] VITALS: BP 145/76
--- NOTE | 2022-05-06 17:47 | NUR ---
PT CONTINUES IN CHAIR OR BED, NO REPORT OF CHEST PAIN OR SHORTNESS OF BREATH.
[2022-05-06 18:53] VITALS: BP 136/74
--- NOTE | 2022-05-06 19:50 | NUR ---
PATIENT SITTING UP IN CHAIR WITH FAMILY IN ROOM PATIENT ALERT AND ORIENTED X 3 AND DENEIS ANY PAIN AT THIS TIME. PATIENT EDUCATED ON VENOFER AND EXPLAINED THAT DR. GALICIA HAS ORDERED THIS FOR AM. PATIENT VERBALLY UNDERSTOOD MEDICATION AND INDICATIONS. TELE MONITOR READING SR AND HR OF 84. PATEINT LUNGS ARE CLEAR AND BOWEL SOUNDS PRESENT. SIDERAILS ARE UP X 2 CALL LIGHT IS WITHIN REACH.
--- NOTE | 2022-05-06 20:32 | NUR ---
PATIENT GIVEN 3 UNITS OF HUMALIN INSULIN FOR SLIDING SCALE COVERAGE AT THIS TIME FOR GLUCOSE OF 277 AND PATIENT ALSO GIVEN 70 UNITS OF LEVIMER PER DR. PARKS ORDER.
[2022-05-07 00:15] VITALS: BP 138/70
--- NOTE | 2022-05-07 00:15 | NUR ---
PATIENT RESTING IN BED AT THIS TIME EYES CLOSED RESPIRATIONS EASY AND UNLABORED TELE MONITOR ON AND READING SINUS RHYTHM AND HR IS 79. SIDERRAILS ARE UP CALL LIGHT WITHIN REACH.
--- NOTE | 2022-05-07 03:51 | NUR ---
PATIENT RESTING IN BED AT THIS TIME PATIENT DENIES ANY NEEDS AND OR PAIN. TELE MONITOR REMAINS IN PLACE AND IS READING SR AND HR OF 74. SIDERAILS ARE UP CALL LLIGHT NEAR.
[2022-05-07 04:06] VITALS: BP 130/71
[2022-05-07 06:00] LABS: BASO% 0.5 % (0-3); EOS% 3.7 % (0-8); HEMATOCRIT 30.4 % (37.0-47.0); HEMOGLOBIN 9.2 g/dl (12.0-16.0); IMMATURE GRANULOCYTES 0.3 % (0.0-5.0); LYMPH% 22.5 % (15-41); MEAN CELL VOLUME 87.6 fL CALC (80.0-100.0); MEAN CORPUSCULAR HGB 26.5 pG CALC (26.0-32.0); MEAN CORPUSCULAR HGB CONC 30.3 g/dL CAL (32.0-36.0); MONO% 4.4 % (2-13); NEUT# 7.44 thou/uL (2.00-7.15); NEUT% 68.6 % (42-76); RED BLOOD COUNT 3.47 mill/uL (4.20-5.60); RED CELL DISTRI WIDTH 16.3 % (11.5-15.5)
[2022-05-07 06:23] LABS: ALBUMIN 3.5 g/dL (3.2-5.0); ALKALINE PHOSPHATASE 120 u/l (38-126); CARBON DIOXIDE 38 mmol/l (22-30); CHLORIDE 92 mmol/l (95-108); CREATININE 2.4 mg/dL (0.5-1.0); GFR FOR AFR.AMER. 26 ML/MIN (>=60 (CALC)); GFR OTHER RACES 21 ML/MIN (>=60 (CALC)); SGOT/AST 16 u/l (14-36); SODIUM 138 mmol/l (137-146); TOTAL PROTEIN 7.2 g/dL (6.3-8.2)
[2022-05-07 06:37] VITALS: BP 121/62
[2022-05-07 06:38] LABS: BUN 93 mg/dL (7-17); BUN/CREATININE RATIO 39 (12-20 (CALC))
[2022-05-07 06:39] LABS: ANION GAP 11 (6-22 (CALC)); BILIRUBIN, TOTAL 0.1 mg/dL (0.02-1.3); MAGNESIUM 3.7 mg/dL (1.6-2.3); POTASSIUM 3.4 mmol/l (3.5-5.1)
--- NOTE | 2022-05-07 08:18 | NUR ---
PT SEEN AWAKE, ALERT, ORIENTED X 3. PT AWARE OF PENDING CONSULT WITH DR DEL CID. RENAL NUMBERS IMPROVED THIS MORNING, PT AWARE.
[2022-05-07 10:06] VITALS: BP 128/70
[2022-05-07 11:51] LABS: URINE BILIRUBIN - DIPSTICK NEGATIVE (NEGATIVE); URINE BLOOD DIPSTICK TRACE-INTACT (NEGATIVE); URINE CLARITY CLEAR; URINE COLOR YELLOW; URINE GLUCOSE - DIPSTICK 500 mg/dL (NEGATIVE); URINE KETONE NEGATIVE (NEGATIVE); URINE LEUK ESTERASE NEGATIVE (Negative); URINE NITRITE - DIPSTICK NEGATIVE (Negative); URINE PROTEIN - DIPSTICK 100 mg/dL (NEG-TRACE); URINE UROBILINOGEN - DIPSTICK 0.2 E.U./dL (0.2)
[2022-05-07 12:02] LABS: URINE RBC 0-2 RBC/hpf (0-5); URINE SQUAMOUS EPITHELIAL CELL RARE EPI/hpf (0-FEW)
--- NOTE | 2022-05-07 13:06 | NUR ---
Son on the phone with patient. Patient scheduled for discharge today and states she feels she is ready to go home. Son will be picking patient up at approximately 2pm today. Patient denies any CP, SOB, or dizziness at this time. Patient does complain fo pain in throat during swallowing but denies any coughing or sob during eating periods. Call light within reach.
--- NOTE | 2022-05-07 14:36 | NUR ---
PATIENTS RIDE DOWN STAIRS. Discharge instructions given. Patient verbalizes understanding of same. Discharged in stable condition via wheelchair to Home with family. All belongings sent with pt. Telemetry box and IV removed. Iv catheter intact and patient tolerated well.
== END 2022-05-07 14:34 | disposition home or self-care (01) ==
LOC: ED 12:54 → ED-I 15:38 → ED 15:56 → MS2 15:57
PROVIDERS: Family Medicine; Internal Medicine Nephrology; ADMIT Internal Medicine; ATTEND Internal Medicine
DX: N17.9 Acute kidney failure, unspecified (principal); E86.9 Volume depletion, unspecified; E86.0 Dehydration; T50.2X5A Adverse effect of carbonic-anhydrase inhibitors, benzothiadiazides and other diuretics, initial encounter; T50.1X5A Adverse effect of loop [high-ceiling] diuretics, initial encounter; R07.89 Other chest pain; E87.6 Hypokalemia; I13.0 Hypertensive heart and chronic kidney disease with heart failure and stage 1 through stage 4 chronic kidney disease, or unspecified chronic kidney disease; E11.22 Type 2 diabetes mellitus with diabetic chronic kidney disease; I50.9 Heart failure, unspecified; N18.4 Chronic kidney disease, stage 4 (severe); D63.1 Anemia in chronic kidney disease; E87.3 Alkalosis; E87.1 Hypo-osmolality and hyponatremia; E55.9 Vitamin D deficiency, unspecified; E03.9 Hypothyroidism, unspecified; E78.5 Hyperlipidemia, unspecified; E66.01 Morbid (severe) obesity due to excess calories; Z79.4 Long term (current) use of insulin; Z87.442 Personal history of urinary calculi
CPT/HCPCS: G0378; J1756; J3475; Q5106 EC

== ENCOUNTER 2022-08-31 17:32 | Emergency (ER) | payer MEDICAID ==
[~2022-08-31] VITALS: Ht 160 cm; Wt 112.0 kg
[2022-08-31] VITALS (12 sets, daily range): BP systolic 126–150; BP diastolic 71–85
[~2022-08-31 17:32] MED LIST changes: +ALLOPURINOL100 MG PO
[2022-08-31 18:31] LABS: BASO% 0.4 % (0-3); EOS% 2.4 % (0-8); HEMATOCRIT 31.3 % (37.0-47.0); HEMOGLOBIN 9.9 g/dl (12.0-16.0); IMMATURE GRANULOCYTES 0.2 % (0.0-5.0); LYMPH% 20.1 % (15-41); MEAN CELL VOLUME 83.7 fL CALC (80.0-100.0); MEAN CORPUSCULAR HGB 26.5 pG CALC (26.0-32.0); MEAN CORPUSCULAR HGB CONC 31.6 g/dL CAL (32.0-36.0); MONO% 4.9 % (2-13); NEUT# 9.08 thou/uL (2.00-7.15); RED BLOOD COUNT 3.74 mill/uL (4.20-5.60); RED CELL DISTRI WIDTH 16.1 % (11.5-15.5)
[2022-08-31 18:51] LABS: BILIRUBIN, TOTAL 0.2 mg/dL (0.02-1.3); CREATININE 2.3 mg/dL (0.5-1.0); POTASSIUM 4.1 mmol/l (3.5-5.1); TOTAL PROTEIN 8.3 g/dL (6.3-8.2)
[2022-08-31] MEDS ORDERED: IMODIUM2 MG PO (21:18)
[2022-08-31] MEDS ORDERED: DICYCLOMINE10 MG PO (21:18)
== END 2022-08-31 21:51 | disposition home or self-care (01) | DRG 392 ==
LOC: ED 17:32
PROVIDERS: Family Medicine
DX: R10.9 Unspecified abdominal pain (principal); E11.65 Type 2 diabetes mellitus with hyperglycemia; E11.22 Type 2 diabetes mellitus with diabetic chronic kidney disease; I12.9 Hypertensive chronic kidney disease with stage 1 through stage 4 chronic kidney disease, or unspecified chronic kidney disease; N18.9 Chronic kidney disease, unspecified; Z79.4 Long term (current) use of insulin

== ENCOUNTER 2022-10-09 22:36 | Observation (INO) | payer MEDICAID ==
[~2022-10-09] VITALS: Ht 160 cm; Wt 121.0 kg
[~2022-10-09 22:36] MED LIST changes: +DICYCLOMINE10 MG PO; +IMODIUM2 MG PO
[2022-10-10 00:02] LABS: BASO% 0.5 % (0-3); EOS% 3.9 % (0-8); HEMATOCRIT 26.9 % (37.0-47.0); HEMOGLOBIN 8.1 g/dl (12.0-16.0); IMMATURE GRANULOCYTES 0.2 % (0.0-5.0); LYMPH% 22.6 % (15-41); MEAN CELL VOLUME 86.2 fL CALC (80.0-100.0); MEAN CORPUSCULAR HGB CONC 30.1 g/dL CAL (32.0-36.0); MONO% 5.1 % (2-13); NEUT# 8.85 thou/uL (2.00-7.15); NEUT% 67.7 % (42-76); RED BLOOD COUNT 3.12 mill/uL (4.20-5.60); RED CELL DISTRI WIDTH 17.8 % (11.5-15.5)
[2022-10-10 00:20] LABS: ALBUMIN 3.7 g/dL (3.2-5.0); BILIRUBIN, TOTAL 0.3 mg/dL (0.02-1.3); POTASSIUM 4.3 mmol/l (3.5-5.1)
[2022-10-10 00:22] LABS: C-REACTIVE PROTEIN 4.2 mg/dL (0-0.9)
[2022-10-10 00:26] LABS: CREATININE 3.2 mg/dL (0.5-1.0); TOTAL PROTEIN 8.1 g/dL (6.3-8.2)
[2022-10-10 00:28] LABS: URINE BLOOD DIPSTICK SMALL (NEGATIVE); URINE COLOR YELLOW; URINE GLUCOSE - DIPSTICK 100 mg/dL (NEGATIVE); URINE KETONE NEGATIVE (NEGATIVE); URINE LEUK ESTERASE TRACE (NEGATIVE); URINE PROTEIN - DIPSTICK 100 mg/dL (NEG-TRACE); URINE UROBILINOGEN - DIPSTICK 0.2 E.U./dL (0.2)
[2022-10-10 00:29] LABS: URINE BILIRUBIN - DIPSTICK NEGATIVE (NEGATIVE); URINE NITRITE - DIPSTICK NEGATIVE (Negative)
[2022-10-10 00:30] LABS: URINE BACTERIA FEW hpf; URINE EPITHELIAL CELLS FEW EPI/hpf (0-FEW); URINE YEAST FEW hpf
[2022-10-10] MEDS ORDERED: COREG12.5 MG PO (00:32)
[2022-10-10] MEDS ORDERED: LASIX 40 MG TAB40 MG PO (00:32)
[2022-10-10] MEDS ORDERED: POT CHLORIDE10 ME5 PO (00:33)
[2022-10-10 06:41] VITALS: BP 137/70
[2022-10-10 10:55] VITALS: BP 139/67
[2022-10-10] MEDS ORDERED: LEVEMIR100 UNIT SC (13:54)
[2022-10-10] MEDS ORDERED: ATORVASTATIN CA40 MG PO (13:55)
[2022-10-10] MEDS ORDERED: FARXIGA10 MG PO (13:56)
[2022-10-10] MEDS ORDERED: DRISDOL50000 UNIT PO (13:56)
[2022-10-10 14:43] VITALS: BP 128/66
[2022-10-10 18:52] VITALS: BP 134/60
[2022-10-11 04:49] VITALS: BP 158/86
[2022-10-11 05:55] LABS: ALBUMIN 3.5 g/dL (3.2-5.0); CARBON DIOXIDE 27 mmol/l (22-30); CHLORIDE 107 mmol/l (95-108); GFR FOR AFR.AMER. 29 ML/MIN (>=60 (CALC)); GFR OTHER RACES 24 ML/MIN (>=60 (CALC)); POTASSIUM 4.5 mmol/l (3.5-5.1); SODIUM 142 mmol/l (137-146)
[2022-10-11 05:59] LABS: BUN 71 mg/dL (7-17); CREATININE 2.2 mg/dL (0.5-1.0)
[2022-10-11 06:30] VITALS: BP 144/67
[2022-10-11 08:00] VITALS: BP 144/67
[2022-10-11 08:07] VITALS: BP 144/67
== END 2022-10-11 11:20 | disposition home or self-care (01) ==
LOC: ED 22:36 → MS2 10-10 04:08
PROVIDERS: Family Medicine; Internal Medicine Nephrology; ADMIT Internal Medicine; ATTEND Internal Medicine
DX: N17.9 Acute kidney failure, unspecified (principal); E86.9 Volume depletion, unspecified; I13.0 Hypertensive heart and chronic kidney disease with heart failure and stage 1 through stage 4 chronic kidney disease, or unspecified chronic kidney disease; I50.32 Chronic diastolic (congestive) heart failure; N18.4 Chronic kidney disease, stage 4 (severe); E11.22 Type 2 diabetes mellitus with diabetic chronic kidney disease; N25.81 Secondary hyperparathyroidism of renal origin; D63.1 Anemia in chronic kidney disease; E11.65 Type 2 diabetes mellitus with hyperglycemia; E03.9 Hypothyroidism, unspecified; E78.5 Hyperlipidemia, unspecified; E66.01 Morbid (severe) obesity due to excess calories; Z87.442 Personal history of urinary calculi; Z90.5 Acquired absence of kidney; Z87.440 Personal history of urinary (tract) infections
CPT/HCPCS: G0378

== ENCOUNTER 2022-11-05 18:50 | Observation (INO) | payer MEDICAID ==
[2022-11-05] VITALS (10 sets, daily range): BP systolic 82–123; BP diastolic 43–82
[~2022-11-05] VITALS: Ht 160 cm; Wt 115.9 kg
[~2022-11-05 18:50] MED LIST changes: +ATORVASTATIN CA40 MG PO; +COREG12.5 MG PO; +DRISDOL50000 UNIT PO; +LEVEMIR100 UNIT SC; +POT CHLORIDE10 ME5 PO
--- NOTE | 2022-11-05 19:35 | NUR ---
PATIENT TO ROOM 6 FOR BEDSIDE TRIAGE. UNDRESSED INTO A GOWN. PLACED ON MONITOR. AWAITING MD VALLADARES.
[2022-11-05 20:34] LABS: BASO% 0.3 % (0-3); EOS% 2.6 % (0-8); HEMATOCRIT 25.3 % (37.0-47.0); HEMOGLOBIN 7.6 g/dl (12.0-16.0); IMMATURE GRANULOCYTES 0.2 % (0.0-5.0); LYMPH% 14.6 % (15-41); MEAN CELL VOLUME 84.3 fL CALC (80.0-100.0); MEAN CORPUSCULAR HGB 25.3 pG CALC (26.0-32.0); MONO% 5.3 % (2-13); NEUT# 9.36 thou/uL (2.00-7.15); RED CELL DISTRI WIDTH 17.1 % (11.5-15.5)
[2022-11-05 21:08] LABS: ALBUMIN 3.6 g/dL (3.2-5.0); ALKALINE PHOSPHATASE 179 u/l (38-126); ANION GAP 15 (6-22 (CALC)); CARBON DIOXIDE 27 mmol/l (22-30); CHLORIDE 98 mmol/l (95-108); LIPASE 150 u/l (23-300); POTASSIUM 4.8 mmol/l (3.5-5.1); SODIUM 135 mmol/l (137-146); TOTAL PROTEIN 8.1 g/dL (6.3-8.2)
[2022-11-05 21:14] LABS: BILIRUBIN, TOTAL 0.6 mg/dL (0.02-1.3); BUN 86 mg/dL (7-17); BUN/CREATININE RATIO 26 (12-20 (CALC)); CREATININE 3.3 mg/dL (0.5-1.0); GFR FOR AFR.AMER. 18 ML/MIN (>=60 (CALC)); GFR OTHER RACES 15 ML/MIN (>=60 (CALC)); SGOT/AST 44 u/l (14-36)
--- NOTE | 2022-11-05 21:37 | NUR ---
TEMP RECHECKED, 102.5. PATIENT MEDICATED ORDERED. WILL MONITOR TEMP FOR EFFECT.
--- NOTE | 2022-11-05 22:45 | NUR ---
TEMP IMPROVED 98.0. PATIENT DENIES COMPLAINTS AT PRESENT. AWARE OF ADMISSION, AWAITING ROOM ASSIGNMENT.
[2022-11-05 23:11] LABS: URINE BILIRUBIN - DIPSTICK NEGATIVE (NEGATIVE); URINE COLOR YELLOW; URINE GLUCOSE - DIPSTICK 500 mg/dL (NEGATIVE); URINE KETONE Negative (NEGATIVE); URINE PH 5.5 (4.5-8.0); URINE SPECIFIC GRAVITY 1.025
[2022-11-05 23:12] LABS: URINE PROTEIN - DIPSTICK >=300 mg/dL (NEG-TRACE); URINE UROBILINOGEN - DIPSTICK 0.2 E.U./dL (0.2)
[2022-11-05 23:13] LABS: URINE BLOOD DIPSTICK NEGATIVE (NEGATIVE); URINE LEUK ESTERASE NEGATIVE (NEGATIVE); URINE NITRITE - DIPSTICK NEGATIVE (Negative)
--- NOTE | 2022-11-05 23:25 | NUR ---
IV ESTABLISHED AND IVF HUNG AND PATIENT GIVEN ABX ORDERED.
[2022-11-05 23:26] LABS: URINE BACTERIA FEW hpf; URINE EPITHELIAL CELLS MODERATE EPI/hpf (0-FEW); URINE MUCUS FEW hpf (NONE-FEW)
[2022-11-05 23:27] LABS: URINE YEAST MODERATE hpf
--- NOTE | 2022-11-05 23:58 | NUR ---
ATTEMPTED TO REVIEW HOME MEDS WITH PATIENT. HOWEVER PATIENT IS UNSURE OF HER MEDS, DOES NOT HAVE A LIST. REVIEWED MEDICATION HISTORY WITH PATIENT AND SHE WAS STILL UNABLE TO VERIFY HER MEDS. PHARMACY CONSULT PLACED FOR ASSISTANCE.
[2022-11-06] VITALS (23 sets, daily range): BP systolic 71–159; BP diastolic 43–88
--- NOTE | 2022-11-06 00:47 | NUR ---
REPORT CALLED TO [facility], PATIENT READIED FOR TRANSPORT TO FLOOR.
--- NOTE | 2022-11-06 01:45 | NUR ---
PATIENT RESTING ON STRETCHER. TEMP REMAINS WNL. DENIES ANY COMPLAINTS OR NEEDS AT THIS TIME.
--- NOTE | 2022-11-06 02:05 | NUR ---
PATIENT TRANSPORTED TO FLOOR ON MONITOR VIA STRETCHER.
--- NOTE | 2022-11-06 02:10 | NUR ---
52yr old VERY obese pale female admitted icu8 as medsurg overflow per stretcher from er. transferred self to bed. bed weight obtained. irrigator valve pipe shows sinus rhythm. #20 lac saline lock. history obtained per old & er record. oriented to room. fall precautions initiated.
--- NOTE | 2022-11-06 03:25 | NUR ---
pt has had SEVERAL episodes of low pulse ox & obvious sleep apnea. pulsse ox has dropped to 78%. rt was notified & o23 began.
[2022-11-06 04:31] LABS: MEAN CELL VOLUME 84.9 fL CALC (80.0-100.0); MEAN CORPUSCULAR HGB 25.5 pG CALC (26.0-32.0); PLATELET COUNT 332 thou/uL (130-400); RED BLOOD COUNT 2.59 mill/uL (4.20-5.60); RED CELL DISTRI WIDTH 17.4 % (11.5-15.5)
[2022-11-06 04:47] LABS: HEMOGLOBIN 6.6 g/dl (12.0-16.0)
[2022-11-06 04:54] LABS: CREATININE 3.2 mg/dL (0.5-1.0); POTASSIUM 4.2 mmol/l (3.5-5.1)
[2022-11-06 04:57] LABS: MAGNESIUM 2.6 mg/dL (1.6-2.3)
[2022-11-06 05:10] LABS: C-REACTIVE PROTEIN 20.1 mg/dL (0-0.9)
--- NOTE | 2022-11-06 08:00 | NUR ---
RCD REPORT FROM NIGHTSHIFT. PT IS SLEEPING, EYES CLOSED, RISE AND FALL OF CHEST NOTED, NSR ON THE MONITOR. PT EASY TO AWAKEN. PT IS A/OX3. PT IS PRIMARILY CHINESE SPEAKING, BUT DOES SPEAK SOME CHINESE. PT DENIES ANY CHEST PAIN OR SOB. PT AMBULATES INDEPENDENTLY. PT SKIN INTACT. LUNGS ARE CLEAR. PLAN IS FOR A NUCLEAR MED SCAN TODAY. PT DENIES ANY COMPLAINTS AT THIS TIME.
[2022-11-06 10:19] LABS: BILIRUBIN, TOTAL 0.5 mg/dL (0.02-1.3)
--- NOTE | 2022-11-06 10:45 | NUR ---
PT TAKEN BY WHEELCHAIR TO NUCLEAR MEDICINE FOR ORDERED SCAN. PT TOLERATED WELL.
--- NOTE | 2022-11-06 12:00 | NUR ---
pt is in bed resting and on phone. pt denies any complaints at this time. bed in lowest position. call light within reach.
--- NOTE | 2022-11-06 12:15 | NUR ---
REPORT RECIEVED FROM DAY RN. PT CARE ASSUMED. VSS, CALL LIGHT WITHIN REACH. PT DENEIED ANY NEEDS AT THIS TIME.
--- NOTE | 2022-11-06 13:47 | NUR ---
PHONE CALL PLACED TO DR. GALICIA'S OFFICE IN REGARDS TO CONSULT PLACED.
--- NOTE | 2022-11-06 14:15 | NUR ---
PT LYING IN BED. PT DENIED ANY NEEDS AT THIS TIME. CALL LIGHT AND BELONGINGS WITHIN REACH. VSS.
--- NOTE | 2022-11-06 14:32 | NUR ---
PT UP TO RESTROOM. PT AMBULATES INDEPENDENTLY.
--- NOTE | 2022-11-06 16:00 | NUR ---
PT LYING IN BED EYES CLOSED. CALL LIGHT AND BELONGINGS WITHIN REACH. VSS AT THIS TIME.
--- NOTE | 2022-11-06 17:00 | NUR ---
PT AWAKE AND COMPLAINING OF NECK AND BACK PAIN WITH NAUSEA. PT GIVEN ICE PACK AND TYLENOL FOR PAIN. PT'S FAMILY MEMBER AT BEDSIDE. PT REPOSITIONED.
--- NOTE | 2022-11-06 17:20 | NUR ---
PHONE CALL RECIEVED FROM DR. GALICIA. PER HE WILL SEE THE PT TOMORROW BUT WOULD LIKE IV LASIX GIVEN IF PT RECIEVES BLOOD TRANSFUSION.
[2022-11-06 17:40] LABS: BASO% 0.4 % (0-3); EOS% 2.5 % (0-8); HEMATOCRIT 24.1 % (37.0-47.0); HEMOGLOBIN 7.3 g/dl (12.0-16.0); IMMATURE GRANULOCYTES 0.3 % (0.0-5.0); LYMPH% 16.3 % (15-41); MEAN CELL VOLUME 86.4 fL CALC (80.0-100.0); MEAN CORPUSCULAR HGB 26.2 pG CALC (26.0-32.0); MEAN CORPUSCULAR HGB CONC 30.3 g/dL CAL (32.0-36.0); MONO% 5.6 % (2-13); NEUT# 8.61 thou/uL (2.00-7.15); NEUT% 74.9 % (42-76); RED BLOOD COUNT 2.79 mill/uL (4.20-5.60); RED CELL DISTRI WIDTH 17.2 % (11.5-15.5)
--- NOTE | 2022-11-06 18:01 | NUR ---
PT SITTING UP IN BED EATING DINNER. FAMILY AT BEDSIDE. PT NOT REPORTING ANY PAIN AT THIS TIME. CALL LIGHT AND BELONGINGS WITHIN REACH. VSS.
--- NOTE | 2022-11-06 19:20 | NUR ---
to us per w/c for venous us.
--- NOTE | 2022-11-06 19:40 | NUR ---
returned from us. myles well. ivf began as ordered. quality assurance monitor shows sinus rhythm. po fluids taken fair. up ad do to br. fall precautions cont.
--- NOTE | 2022-11-06 20:50 | NUR ---
c/o sharp chest pain with palp & leg pain. tylenol 650mg po given.
--- NOTE | 2022-11-06 21:30 | NUR ---
pt is sleeping. pulse ox shows 89%. o2 began @ 2 l/m.
[2022-11-07] VITALS (36 sets, daily range): BP systolic 71–147; BP diastolic 41–110
--- NOTE | 2022-11-07 00:01 | NUR ---
eyes closed. no distress. hospital monitor shows sinus rhythm.
--- NOTE | 2022-11-07 04:00 | NUR ---
amb to br then back to bed. b/o pain in legs & lt breast/chest. tylenol 650 mg po given.
[2022-11-07 06:18] LABS: BASO% 0.5 % (0-3); EOS% 2.9 % (0-8); HEMATOCRIT 21.8 % (37.0-47.0); IMMATURE GRANULOCYTES 0.2 % (0.0-5.0); LYMPH% 19.9 % (15-41); MEAN CELL VOLUME 86.9 fL CALC (80.0-100.0); MEAN CORPUSCULAR HGB 26.3 pG CALC (26.0-32.0); MEAN CORPUSCULAR HGB CONC 30.3 g/dL CAL (32.0-36.0); MONO% 5.2 % (2-13); NEUT# 9.05 thou/uL (2.00-7.15); NEUT% 71.3 % (42-76); PLATELET COUNT 368 thou/uL (130-400); RED BLOOD COUNT 2.51 mill/uL (4.20-5.60); RED CELL DISTRI WIDTH 17.3 % (11.5-15.5)
[2022-11-07 06:34] LABS: BILIRUBIN, TOTAL 0.4 mg/dL (0.02-1.3); POTASSIUM 4.4 mmol/l (3.5-5.1); TOTAL PROTEIN 6.6 g/dL (6.3-8.2)
[2022-11-07 06:41] LABS: HEMOGLOBIN 6.6 g/dl (12.0-16.0)
[2022-11-07 06:45] LABS: C-REACTIVE PROTEIN 19.3 mg/dL (0-0.9)
--- NOTE | 2022-11-07 07:05 | NUR ---
Report from JENNIE Lofton. Patient resting comfortably in bed, able to independently reposition, reports no complaints at this time. Continuous monitoring in place. VSS.
--- NOTE | 2022-11-07 12:13 | NUR ---
Patient in recliner for lunch. Ambulated to BR with SBA. Dr. Saavedra and Karla have both been bedside to discuss POC with patient. PRBCs infusing without pain or infiltration at this time. Voices no complaints, VSS.
--- NOTE | 2022-11-07 16:57 | NUR ---
Patient back to recliner after 1-2 hours in bed. Given GI cocktail for reported nausea and LUQ discomfort. Post-transfusion H/H ordered and Lasix 40 mg IV given as ordered. ALDO BARRY.
--- NOTE | 2022-11-07 18:25 | NUR ---
IVF d/c per order.
[2022-11-07 18:27] LABS: HEMATOCRIT 26.1 % (37.0-47.0)
--- NOTE | 2022-11-07 19:00 | NUR ---
HAND OFF REPORT RECEIVED FROM NITA SANCHEZ AT BEDSIDE.
--- NOTE | 2022-11-07 19:10 | NUR ---
Report to LUCHO Alaniz. Handoff of care at this time.
--- NOTE | 2022-11-07 20:07 | NUR ---
PATIENT RESTING ON LEFT SIDE, RESPIRATIONS EVEN AND UNLABORED, C/O PAIN ALL OVER, NO S/S OF DISTRESS NOTED, AT BEDSIDE.
--- NOTE | 2022-11-07 21:53 | NUR ---
PATIENT AMBULATING TOT HE RESTROOM INSEPENDENTLY.
--- NOTE | 2022-11-07 22:00 | NUR ---
PATIENT RESTING IN BEDSIDE RECLINER, PREPORTS RELIEF OF SYMPTOMS AFTER MAALOX, NO C/O PAIN OR DISCOMFORT, NO S/S OF DISTRESSNOTED. O2@2L BY NC APPLIED FOR PATIENT COMFORT.
--- NOTE | 2022-11-07 22:00 | NUR ---
PATIENT C/O EPIGASTRIC JOSE, SPOKE WITH MD FARAH ORDERED FOR PATIENT DISCOMFORT, ORDER FAXED TO PHARMACY AWAITING VERIFICATION.
[2022-11-08] VITALS (34 sets, daily range): BP systolic 95–142; BP diastolic 49–93
--- NOTE | 2022-11-08 00:03 | NUR ---
PATIENT RESTING QUIETLY WITH EYES CLOSED, RESPIRATIONS EVEN AND UNLABORED ON O2@2L BY NC FOR PATIENT COMFORT, NO C/O PAIN OR DISCOMFORT, NO S/S OF DISTRESS NOTED, LIGHTS OFF FOR PATIENT COMFORT.
--- NOTE | 2022-11-08 04:17 | NUR ---
PATIENT RESTING QUIETLY WITH EYES CLOSED, RESPIRATIONS EVEN AN DUNLABORED, NO C/O PAIN OR DISCOMFORT, NO S/S OF DISTRESS NOTED, PATIENT ON O2@2L BY NC FOR PATIENT COMFORT.
[2022-11-08 06:28] LABS: ALBUMIN 3.2 g/dL (3.2-5.0); POTASSIUM 4.6 mmol/l (3.5-5.1)
[2022-11-08 09:29] LABS: BASO% 0.4 % (0-3); EOS% 1.4 % (0-8); HEMATOCRIT 24.9 % (37.0-47.0); HEMOGLOBIN 7.6 g/dl (12.0-16.0); IMMATURE GRANULOCYTES 0.2 % (0.0-5.0); LYMPH% 14.9 % (15-41); MEAN CELL VOLUME 87.7 fL CALC (80.0-100.0); MEAN CORPUSCULAR HGB 26.8 pG CALC (26.0-32.0); MEAN CORPUSCULAR HGB CONC 30.5 g/dL CAL (32.0-36.0); MONO% 4.3 % (2-13); NEUT# 10.43 thou/uL (2.00-7.15); NEUT% 78.8 % (42-76); RED BLOOD COUNT 2.84 mill/uL (4.20-5.60); RED CELL DISTRI WIDTH 17.4 % (11.5-15.5)
[2022-11-08 09:38] LABS: ALBUMIN 3.2 g/dL (3.2-5.0); BILIRUBIN, TOTAL 0.5 mg/dL (0.02-1.3); CREATININE 3.1 mg/dL (0.5-1.0); POTASSIUM 4.6 mmol/l (3.5-5.1); TOTAL PROTEIN 7.1 g/dL (6.3-8.2)
--- NOTE | 2022-11-08 10:15 | NUR ---
PT SEEN AWAKE, ALERT, ORIENTED X 3, SITTING UP IN CHAIR AT BEDSIDE. PT RECEIVED MYLANTA FOR NAUSEA THIS MORNING. SHE DOES SEEM TO HAVE MANY NEEDS, WILL MONITOR.
[2022-11-08] MEDS ORDERED: LEVOTHYROXIN75 MC1 PO (10:33)
[2022-11-08] MEDS ORDERED: PANTOPRAZOLE SO40 M1 PO (10:33)
[2022-11-08] MEDS ORDERED: SENNA-PLUS1 TAB PO (10:34)
[2022-11-08] MEDS ORDERED: ATORVASTATIN CA40 MG PO (10:34)
[2022-11-08] MEDS ORDERED: PHOSLO667 MG PO (10:34)
[2022-11-08] MEDS ORDERED: ZYLOPRIM100 MG PO (10:35)
--- NOTE | 2022-11-08 12:14 | NUR ---
PT AWARE OF PENDING DISCHARGE TO HOME. LE RUNNING, ALMOST FINISHED. PT SEEN BY DR DEL CID.
--- NOTE | 2022-11-08 12:58 | NUR ---
PT VERBALIZED UNDERSTANDING OF DC INSTRUCTIONS, TAKEN BY WHEELCHAIR TO VEHICLE. PT LEAVES IN STABLE CONDITION.
== END 2022-11-08 12:45 | disposition home or self-care (01) ==
LOC: ED 18:50 → ED-I 22:31 → ED 23:46 → ICU 23:47
PROVIDERS: Emergency Medicine; Internal Medicine Nephrology; Nurse Practitioner; ADMIT Student in an Organized Health Care Education/Training Program; ATTEND Student in an Organized Health Care Education/Training Program
DX: R07.89 Other chest pain (principal); N17.9 Acute kidney failure, unspecified; R65.10 Systemic inflammatory response syndrome (SIRS) of non-infectious origin without acute organ dysfunction; I12.9 Hypertensive chronic kidney disease with stage 1 through stage 4 chronic kidney disease, or unspecified chronic kidney disease; N18.4 Chronic kidney disease, stage 4 (severe); E11.22 Type 2 diabetes mellitus with diabetic chronic kidney disease; D63.1 Anemia in chronic kidney disease; N25.81 Secondary hyperparathyroidism of renal origin; E03.9 Hypothyroidism, unspecified; E78.5 Hyperlipidemia, unspecified; E86.9 Volume depletion, unspecified; E66.01 Morbid (severe) obesity due to excess calories; Z90.5 Acquired absence of kidney; Z87.442 Personal history of urinary calculi; Z87.440 Personal history of urinary (tract) infections; Z20.822 Contact with and (suspected) exposure to COVID-19
CPT/HCPCS: A9540; J1756; P9016

== ENCOUNTER 2023-05-03 21:35 | Emergency (ER) | payer SELFPAY ==
[~2023-05-03] VITALS: Ht 160 cm; Wt 109.0 kg
[~2023-05-03 21:35] MED LIST changes: +PANTOPRAZOLE SO40 M1 PO; +PHOSLO667 MG PO; +SENNA-PLUS1 TAB PO; +ZYLOPRIM100 MG PO
[2023-05-03 23:15] LABS: BASO% 0.3 % (0-3); EOS% 3.4 % (0-8); IMMATURE GRANULOCYTES 0.2 % (0.0-5.0); LYMPH% 23.9 % (15-41); MEAN CELL VOLUME 90.9 fL CALC (80.0-100.0); MEAN CORPUSCULAR HGB 29.1 pG CALC (26.0-32.0); MONO% 4.8 % (2-13); NEUT# 9.85 thou/uL (2.00-7.15); NEUT% 67.4 % (42-76); RED BLOOD COUNT 3.61 mill/uL (4.20-5.60); RED CELL DISTRI WIDTH 14.3 % (11.5-15.5)
[2023-05-03 23:16] LABS: HEMATOCRIT 32.8 % (37.0-47.0); HEMOGLOBIN 10.5 g/dl (12.0-16.0)
[2023-05-03 23:28] LABS: ALKALINE PHOSPHATASE 147 u/l (38-126); ANION GAP 14 (6-22 (CALC)); CARBON DIOXIDE 24 mmol/l (22-30); CHLORIDE 107 mmol/l (95-108); POTASSIUM 4.7 mmol/l (3.5-5.1); SGOT/AST 23 u/l (14-36); SODIUM 139 mmol/l (137-146); TOTAL PROTEIN 7.6 g/dL (6.3-8.2)
[2023-05-03 23:36] LABS: ALBUMIN 3.9 g/dL (3.2-5.0); BILIRUBIN, TOTAL 0.2 mg/dL (0.02-1.3); BUN 82 mg/dL (7-17); BUN/CREATININE RATIO 20 (12-20 (CALC)); CREATININE 4.1 mg/dL (0.5-1.0); GFR FOR AFR.AMER. 14 ML/MIN (>=60 (CALC)); GFR OTHER RACES 12 ML/MIN (>=60 (CALC))
[2023-05-03] MEDS ORDERED: LEVOTHYROXIN100 MCG PO (23:45)
[2023-05-03] MEDS ORDERED: JARDIANCE10 MG PO (23:46)
[2023-05-03] MEDS ORDERED: NIFEDIPINE60 MG PO (23:46)
[2023-05-03] MEDS ORDERED: BUMETANIDE1 MG PO (23:47)
[2023-05-03] MEDS ORDERED: LOSARTAN POTASS25 MG PO (23:48)
[2023-05-03] MEDS ORDERED: BACTRIM DS1 TAB PO (23:48)
[2023-05-03 23:57] LABS: LIPASE 153 u/l (23-300)
[2023-05-04 02:12] LABS: URINE BILIRUBIN - DIPSTICK Negative (NEGATIVE); URINE BLOOD DIPSTICK Small (NEGATIVE); URINE GLUCOSE - DIPSTICK 500 mg/dL (NEGATIVE); URINE KETONE Negative (NEGATIVE); URINE NITRITE - DIPSTICK Negative (Negative); URINE PROTEIN - DIPSTICK >=300 mg/dL (NEG-TRACE); URINE UROBILINOGEN - DIPSTICK 0.2 E.U./dL (0.2)
[2023-05-04 02:15] LABS: URINE COLOR Yellow; URINE LEUK ESTERASE Negative (NEGATIVE)
[2023-05-04 02:28] LABS: URINE BACTERIA FEW hpf; URINE EPITHELIAL CELLS FEW EPI/hpf (0-FEW)
[2023-05-04] MEDS ORDERED: TRAMADOL HCL50 MG PO (02:32)
[2023-05-04 02:56] VITALS: BP 160/88
== END 2023-05-04 02:56 | disposition home or self-care (01) | DRG 690 ==
LOC: ED 21:35
PROVIDERS: Family Medicine
DX: N39.0 Urinary tract infection, site not specified (principal); R07.89 Other chest pain; I12.9 Hypertensive chronic kidney disease with stage 1 through stage 4 chronic kidney disease, or unspecified chronic kidney disease; E11.22 Type 2 diabetes mellitus with diabetic chronic kidney disease; N18.9 Chronic kidney disease, unspecified; D63.1 Anemia in chronic kidney disease; E03.9 Hypothyroidism, unspecified; E78.5 Hyperlipidemia, unspecified; E66.01 Morbid (severe) obesity due to excess calories

== ENCOUNTER 2023-10-25 22:06 | Observation (INO) | payer SELFPAY ==
[~2023-10-25] VITALS: Ht 160 cm; Wt 123.3 kg
[~2023-10-25 22:06] MED LIST changes: +BUMETANIDE1 MG PO; +JARDIANCE10 MG PO; +LEVOTHYROXIN100 MCG PO; +LOSARTAN POTASS25 MG PO; +NIFEDIPINE60 MG PO
--- NOTE | 2023-10-25 22:10 | NUR ---
PT TO RM #1 WITH STEADY GAIT, NAD NOTED, EKG TKN, PT CONNECTED TO CONTINUOUS MONITORING AT THIS TIME, NOTIFIED.
[2023-10-25 22:22] VITALS: BP 166/84
[2023-10-25 22:30] VITALS: BP 166/85
[2023-10-25 23:00] VITALS: BP 163/81
[2023-10-25] MEDS ORDERED: ASPIRIN 81 MG/TAB PO ONE (23:05)
--- NOTE | 2023-10-25 23:15 | NUR ---
PT LAYING IN BED, NO DISTRESS NOTED AT THIS TIME. PT STATES CHEST PAIN HAS SLIGHTLY IMPROVED. MD NOTIFIED. VITAL SIGNS STABLE.
[2023-10-25 23:24] LABS: BASO% 0.4 % (0-3); EOS% 4.2 % (0-8); HEMOGLOBIN 8.6 g/dl (12.0-16.0); IMMATURE GRANULOCYTES 0.2 % (0.0-5.0); MEAN CELL VOLUME 93.6 fL CALC (80.0-100.0); MEAN CORPUSCULAR HGB 28.8 pG CALC (26.0-32.0); MEAN CORPUSCULAR HGB CONC 30.7 g/dL CAL (32.0-36.0); MONO% 4.7 % (2-13); NEUT# 8.79 thou/uL (2.00-7.15); NEUT% 69.5 % (42-76); RED BLOOD COUNT 2.99 mill/uL (4.20-5.60); RED CELL DISTRI WIDTH 14.5 % (11.5-15.5)
[2023-10-25 23:30] VITALS: BP 167/70
[2023-10-25] MEDS ORDERED: NITROGLYCERIN 0.4 MG/TAB SL ONE (23:45)
[2023-10-25 23:55] LABS: ALBUMIN 3.5 g/dL (3.2-5.0); CREATININE 4.1 mg/dL (0.5-1.0); TOTAL PROTEIN 6.7 g/dL (6.3-8.2)
[2023-10-25 23:59] LABS: BILIRUBIN, TOTAL 0.3 mg/dL (0.02-1.3); POTASSIUM 5.6 mmol/l (3.5-5.1)
[2023-10-26] VITALS: BP 148/68
[2023-10-26] LABS: PROTHROMBIN TIME 9.8 SECONDS (9.0-12.5)
[2023-10-26] MEDS ORDERED: BUMETANIDE 1 MG/4 ML VIAL IV ONE ×2 (00:20→00:50)
[2023-10-26] MEDS ORDERED: DEXTROSE IV ONE (00:20)
[2023-10-26] MEDS ORDERED: INSULIN LISPRO 100 UNITS/ML ML IV ONE (00:20)
[2023-10-26] MEDS ORDERED: ALUM & MAG HYDROX-SIMETHICONE 30 ML PO ONE (00:25)
[2023-10-26] MEDS ORDERED: LIDOCAINE VISCOUS 2% 15 ML UDC PO ONE (00:25)
[2023-10-26] MEDS ORDERED: NITROGLYCERIN 2% OINT UD 1 GM/PAK TD ONE ×2 (00:25→01:05)
[2023-10-26 00:30] VITALS: BP 132/62
[2023-10-26] MEDS ORDERED: DEXTROSE 50% 50 ML/SYR IV ONE (00:50)
[2023-10-26] MEDS ORDERED: INSULIN REGULAR (HUMAN) 100 UNIT/ML INJ IV ONE (01:05)
[2023-10-26 01:30] VITALS: BP 122/58
--- NOTE | 2023-10-26 01:48 | NUR ---
PT AMBULATED TO THE BATHROOM WITH A STEADY GAIT
[2023-10-26] MEDS ORDERED: [UNRECOGNIZED DRUG - SUPPLY] XX ONE (01:56)
--- NOTE | 2023-10-26 01:56 | NUR ---
PT VOIDED 580ML OF URINE
[2023-10-26 02:01] VITALS: BP 150/72
[2023-10-26 02:30] VITALS: BP 141/78
--- NOTE | 2023-10-26 02:50 | NUR ---
pt care report given to Nneka on ICU floor
--- NOTE | 2023-10-26 02:58 | NUR ---
53 yr old female admitted icu6 as medsurg tele obs overflow. amb self to br then to bed. hvac mechanical engineer shows sinus rhythm. saline lock in place. history obtained per er record. oriented to room. fall precautions initated.
[2023-10-26] MEDS ORDERED: ALUM & MAG HYDROX-SIMETHICONE 30 ML PO PRN (03:00)
[2023-10-26] MEDS ORDERED: ONDANSETRON 4 MG/TAB ODT SL PRN (03:00)
[2023-10-26] MEDS ORDERED: ACETAMINOPHEN 325 MG/TAB PO PRN (03:00)
--- NOTE | 2023-10-26 03:13 | NUR ---
pt transported to ICU bed #6 via wheelchair
--- NOTE | 2023-10-26 06:00 | NUR ---
electronic device monitor shows sinus rhythm.
[2023-10-26] MEDS ORDERED: DEXTROSE 250 ML IV PRN ×2 (06:35→11:00)
[2023-10-26] MEDS ORDERED: INSULIN LISPRO 100 UNITS/ML ML SC SCH (07:00)
--- NOTE | 2023-10-26 07:25 | NUR ---
PT LAYING IN BED RESTING WITH EYES CLOSED, AROUSES EASILY TO VERBAL STIMULI, PT A&O X3, PUPILS PERRL, HEART SOUNDS NORMAL S1 S2, LUNG SOUNDS CLEAR, TRACE EDEMA IN BLE, 18G LAC SL, SAFETY MEASURES REINFORCED, CALL TAN WITHIN REACH
--- NOTE | 2023-10-26 08:00 | NUR ---
SETUP ASSISTANCE PROVIDED WITH SRINI DELGADILLO
[2023-10-26 08:22] LABS: BASO% 0.5 % (0-3); EOS% 4.5 % (0-8); HEMATOCRIT 25.3 % (37.0-47.0); HEMOGLOBIN 7.8 g/dl (12.0-16.0); IMMATURE GRANULOCYTES 0.1 % (0.0-5.0); LYMPH% 29.6 % (15-41); MEAN CELL VOLUME 94.1 fL CALC (80.0-100.0); MEAN CORPUSCULAR HGB CONC 30.8 g/dL CAL (32.0-36.0); MONO% 4.7 % (2-13); NEUT# 6.37 thou/uL (2.00-7.15); NEUT% 60.6 % (42-76); RED BLOOD COUNT 2.69 mill/uL (4.20-5.60); RED CELL DISTRI WIDTH 14.4 % (11.5-15.5)
[2023-10-26 08:35] LABS: ALBUMIN 3.3 g/dL (3.2-5.0); BILIRUBIN, TOTAL 0.2 mg/dL (0.02-1.3); CREATININE 4.3 mg/dL (0.5-1.0); TOTAL PROTEIN 6.8 g/dL (6.3-8.2)
--- NOTE | 2023-10-26 08:45 | NUR ---
DR MIRANDA AT BEDSIDE DISCUSSING PLAN OF CARE
[2023-10-26] MEDS ORDERED: NIFEdipine 60 MG TAB PO SCH (09:00)
[2023-10-26] MEDS ORDERED: BUMETANIDE 1 MG/4 ML VIAL IV SCH ×2 (09:00→17:00)
[2023-10-26] MEDS ORDERED: LOSARTAN Potassium 25 MG/TAB PO SCH (09:00)
[2023-10-26] MEDS ORDERED: LIDOCAINE 4 % PATCH TD SCH (10:30)
--- NOTE | 2023-10-26 10:45 | NUR ---
STAND BY ASSISTANCE PROVIDED FOR PT TO AMBULATE TO THE BATHROOM AND BACK TO THE BED, PT AMBULATED WITH A STEADY GAIT, PT TOLERATED WELL, REMINDED TO CALL FOR ASSISTANCE, CALL TAN WITHIN REACH
[2023-10-26] MEDS ORDERED: INSULIN DETEMIR 100 UNITS/ML SC SCH (11:30)
[2023-10-26] MEDS ORDERED: LEVEMIR100 UNIT SC (12:09)
--- NOTE | 2023-10-26 12:15 | NUR ---
PT SITTING UP ON THE SIDE OF THE BED EATING LUNCH, TOLERATING WELL, PT DENIES ANY NEEDS AT THIS TIME CALL TAN WITHIN REACH
--- NOTE | 2023-10-26 15:28 | NUR ---
VISITORS AT BEDSIDE
--- NOTE | 2023-10-26 17:35 | NUR ---
PT SITTING UP EATING DINNER AND VISITING WITH FAMILY THAT IS BEDSIDE, PT DENIES ANY NEEDS AT THIS TIME, CALL TAN WITHIN REACH
--- NOTE | 2023-10-26 19:45 | NUR ---
awakens easily. denies distress. monitoring analyst shows sinus rhythm. saline lock in place lac. voids per br. fall precautions cont.
--- NOTE | 2023-10-26 20:30 | NUR ---
urine spec collected & sent to lab.
[2023-10-26 22:16] LABS: URINE BILIRUBIN - DIPSTICK Negative (NEGATIVE); URINE BLOOD DIPSTICK Small (NEGATIVE); URINE CLARITY Clear; URINE GLUCOSE - DIPSTICK 250 mg/dL (NEGATIVE); URINE KETONE Negative (NEGATIVE); URINE LEUK ESTERASE Negative (Negative); URINE NITRITE - DIPSTICK Negative (Negative); URINE PH 5.5 (4.5-8.0); URINE PROTEIN - DIPSTICK >=300 mg/dL (NEG-TRACE); URINE SPECIFIC GRAVITY >=1.030; URINE UROBILINOGEN - DIPSTICK 0.2 E.U./dL (0.2)
[2023-10-26 22:17] LABS: URINE COLOR Yellow
[2023-10-26 22:20] LABS: URINE SQUAMOUS EPITHELIAL CELL FEW EPI/hpf (0-FEW); URINE WBC 0-2 WBC/hpf (0-5)
--- NOTE | 2023-10-26 22:20 | NUR ---
c/o nausea. zofran 4mg sl given.
--- NOTE | 2023-10-26 23:00 | NUR ---
eyes closed. no apparent distress.
--- NOTE | 2023-10-27 00:01 | NUR ---
resting quietly. no apparent distress. crdiac monitor shows sinus rhythm.
--- NOTE | 2023-10-27 04:00 | NUR ---
eyes closed. no distress. flat sorter processor shows sinus rhythm.
--- NOTE | 2023-10-27 05:31 | NUR ---
blood drawn & sent to lab.
[2023-10-27 05:49] LABS: BASO% 0.4 % (0-3); EOS% 4.4 % (0-8); HEMATOCRIT 28.7 % (37.0-47.0); HEMOGLOBIN 8.8 g/dl (12.0-16.0); IMMATURE GRANULOCYTES 0.1 % (0.0-5.0); LYMPH% 18.8 % (15-41); MEAN CELL VOLUME 94.4 fL CALC (80.0-100.0); MEAN CORPUSCULAR HGB 28.9 pG CALC (26.0-32.0); MEAN CORPUSCULAR HGB CONC 30.7 g/dL CAL (32.0-36.0); MONO% 4.5 % (2-13); NEUT# 9.15 thou/uL (2.00-7.15); NEUT% 71.8 % (42-76); RED BLOOD COUNT 3.04 mill/uL (4.20-5.60); RED CELL DISTRI WIDTH 14.4 % (11.5-15.5)
[2023-10-27 06:12] LABS: ALBUMIN 3.5 g/dL (3.2-5.0); BILIRUBIN, TOTAL 0.2 mg/dL (0.02-1.3); CREATININE 4.4 mg/dL (0.5-1.0); MAGNESIUM 2.4 mg/dL (1.6-2.3); TOTAL PROTEIN 6.6 g/dL (6.3-8.2)
[2023-10-27 06:13] LABS: POTASSIUM 5.5 mmol/l (3.5-5.1)
--- NOTE | 2023-10-27 07:11 | NUR ---
BEDSIDE REPORT RECEIVED FROM OFF GOING NURSE. PATIENT ASLEEP BUT EASILY AROUSED. C/O LEFT NECK AND LEFT ARM PAIN. RESPIRATIONS EVEN AND UNLABORED ON ROOM AIR. ASSESSEMENT COMPLETED. NO SIGNS OF DISRESS NOTED. SAFETY MEASURES IN PLACE. CALL LIGHT WITHIN REACH.
[2023-10-27 08:00] VITALS: BP 125/62
[2023-10-27] MEDS ORDERED: SODIUM ZIRCONIUM CYCLOSILICATE 10 GM PAK PO SCH (09:00)
--- NOTE | 2023-10-27 09:51 | NUR ---
PATIENT AWAKE IN BED. STATES THAT TYLENOL AND PAIN PATCH EFFECTIVE. NO SIGNS OF DISTRESS NOTED. ROUNDED ON BY CATALYTIC CONVERTER OPERATOR AND MD. DISCHARGE ORDERS GIVEN. PATIENT AWARE AND AGREEABLE. NO CONCERNS VOICED.
--- NOTE | 2023-10-27 09:53 | NUR ---
Kelly, PELLETIZER called per filing writer; chesy xray may be canceled, pt pending DC
--- NOTE | 2023-10-27 10:35 | NUR ---
DISCHARGE INSTRUCTIONS GIVEN TO PATIENT. PATIENT VERBALIZES UNDERSTANDING. DENIES PAIN OR DISCOMFORT AT THIS TIME. PERIPHERAL IV DISCONTINUED. PATIENT REMOVED FROM MONITOR. GETTING DRESSED AT THIS TIME AND AWAITING FAMILY TO PICK HER UP. NO SIGNS OF DISTRESS NOTED. PATIENT HAS BELONGINGS PACKED.
== END 2023-10-27 10:50 | disposition home or self-care (01) | DRG 313 ==
LOC: ED 22:06 → ED-I 10-26 01:55 → ED 10-26 02:14 → ICU 10-26 02:15
PROVIDERS: Emergency Medicine; Nurse Practitioner Family; ADMIT Internal Medicine; ATTEND Internal Medicine
DX: R07.89 Other chest pain (principal); I13.0 Hypertensive heart and chronic kidney disease with heart failure and stage 1 through stage 4 chronic kidney disease, or unspecified chronic kidney disease; N17.9 Acute kidney failure, unspecified; E11.22 Type 2 diabetes mellitus with diabetic chronic kidney disease; N18.9 Chronic kidney disease, unspecified; I50.9 Heart failure, unspecified; E87.5 Hyperkalemia; D63.1 Anemia in chronic kidney disease; E11.65 Type 2 diabetes mellitus with hyperglycemia; E78.5 Hyperlipidemia, unspecified; E03.9 Hypothyroidism, unspecified; E66.01 Morbid (severe) obesity due to excess calories; Z87.442 Personal history of urinary calculi

== ENCOUNTER 2024-04-02 20:04 | Emergency (ER) | payer SELFPAY ==
[~2024-04-02] VITALS: Ht 160 cm; Wt 117.0 kg
[2024-04-02] VITALS (10 sets, daily range): BP systolic 116–131; BP diastolic 62–73
[2024-04-02] MEDS ORDERED: KETOROLAC TROMETHAMINE 30 MG/ML SDV IM ONE (21:15)
[2024-04-02] MEDS ORDERED: ACETAMINOPHEN 500 MG TAB PO ONE (21:15)
[2024-04-02 21:51] LABS: BASO% 0.3 % (0-3); EOS% 0.2 % (0-8); HEMATOCRIT 30.6 % (37.0-47.0); HEMOGLOBIN 9.7 g/dl (12.0-16.0); IMMATURE GRANULOCYTES 0.2 % (0.0-5.0); LYMPH% 19.2 % (15-41); MEAN CELL VOLUME 91.1 fL CALC (80.0-100.0); MEAN CORPUSCULAR HGB 28.9 pG CALC (26.0-32.0); MEAN CORPUSCULAR HGB CONC 31.7 g/dL CAL (32.0-36.0); MONO% 1.8 % (2-13); NEUT# 7.35 thou/uL (2.00-7.15); NEUT% 78.3 % (42-76); RED BLOOD COUNT 3.36 mill/uL (4.20-5.60); RED CELL DISTRI WIDTH 13.4 % (11.5-15.5)
[2024-04-02 21:58] LABS: ALBUMIN 4.1 g/dL (3.2-5.0); MAGNESIUM 2.6 mg/dL (1.6-2.3)
[2024-04-02 22:01] LABS: BILIRUBIN, TOTAL 0.4 mg/dL (0.02-1.3); CREATININE 5.9 mg/dL (0.5-1.0); POTASSIUM 4.3 mmol/l (3.5-5.1); TOTAL PROTEIN 8.3 g/dL (6.3-8.2)
[2024-04-02] MEDS ORDERED: CALCIUM GLUCONATE 1 GM in SODIUM CHLORIDE 0.9% 50 ML IV ONE (22:10)
[2024-04-02 22:28] LABS: TSH, 3RD GENERATION 2.02 uIU/mL (0.47 - 4.68)
[2024-04-02] MEDS ORDERED: CALCIUM GLUCONATE 1 GM/10 ML VIAL IV ONE (22:40)
[2024-04-02] MEDS ORDERED: SODIUM CHLORIDE 0.9% 500 ML IV ONE (23:40)
[2024-04-02] MEDS ORDERED: PROMETHAZINE HCL 25 MG/ML AMP IV ONE (23:40)
[2024-04-02] MEDS ORDERED: MORPHINE SULFATE 4 MG/ML VIAL IV ONE (23:40)
[2024-04-03] VITALS (16 sets, daily range): BP systolic 99–132; BP diastolic 56–84
[2024-04-03 01:33] LABS: URINE BILIRUBIN - DIPSTICK Negative (NEGATIVE); URINE BLOOD DIPSTICK Small (NEGATIVE); URINE COLOR Yellow; URINE GLUCOSE - DIPSTICK 100 mg/dL (NEGATIVE); URINE KETONE Negative (NEGATIVE); URINE NITRITE - DIPSTICK Negative (Negative); URINE PH 6.5 (4.5-8.0); URINE PROTEIN - DIPSTICK >=300 mg/dL (NEG-TRACE); URINE SPECIFIC GRAVITY 1.025; URINE UROBILINOGEN - DIPSTICK 0.2 E.U./dL (0.2)
[2024-04-03 01:34] LABS: URINE LEUK ESTERASE Negative (NEGATIVE)
[2024-04-03 01:35] LABS: URINE EPITHELIAL CELLS MANY EPI/hpf (0-FEW)
[2024-04-03 01:36] LABS: URINE BACTERIA MODERATE hpf
[2024-04-03] MEDS ORDERED: TYLENOL # 31 TA1 PO (02:49)
[2024-04-03] MEDS ORDERED: MORPHINE SULFATE 4 MG/ML VIAL IV STA (04:17)
[2024-04-03] MEDS ORDERED: PROMETHAZINE HCL 25 MG/ML AMP IV STA (04:17)
== END 2024-04-03 06:23 | disposition home or self-care (01) | DRG 392 ==
LOC: ED 20:04
PROVIDERS: Family Medicine
DX: R10.9 Unspecified abdominal pain (principal); E03.9 Hypothyroidism, unspecified; I12.9 Hypertensive chronic kidney disease with stage 1 through stage 4 chronic kidney disease, or unspecified chronic kidney disease; E11.22 Type 2 diabetes mellitus with diabetic chronic kidney disease; N18.9 Chronic kidney disease, unspecified; E83.51 Hypocalcemia; B34.9 Viral infection, unspecified; R51.9 Headache, unspecified; M54.2 Cervicalgia
CPT/HCPCS: J0612; J2550